=== PATIENT | female | born 1960 | race Caucasian/White ===

== ENCOUNTER → 2017-11-29 17:02 | Outpatient (CLI) | payer BC, SELFPAY ==
--- NOTE | 2017-11-29 17:11 | BI_ITS ---
MAMMOGRAPHY - BILATERAL SCREENING REASON FOR EXAM: Female, 57 years old. Routine annual screening examination. PERTINENT HISTORY: Remote right excisional breast biopsy. TECHNIQUE: Digital bilateral breast jordan (3D mammographic acquisition) in the CC and MLO projections. 2-D mediolateral oblique (MLO) and craniocaudad (CC) views of both breasts were obtained. CAD: Full Field Digital Mammography with Computer Added Detection was performed. COMPARISON: Comparison is made with prior study dated June 17, 2015 and May 22, 2014. FINDINGS: Breast Composition: There are scattered areas of fibroglandular density. There are no dominant masses or suspicious calcifications. No other significant abnormalities are identified. There has been no significant change since the prior study. BI/SCREENING MAMM (CAD), BILAT IMPRESSION: Stable bilateral screening mammogram. Yearly follow-up mammogram recommended. (A) ASSESSMENT CATEGORY: BIRADS Category 1: Negative. A letter regarding these results will be sent to the patient by the facility within 30 days. Approximately 10% of breast cancers are not detected by mammography. A normal mammogram should not delay biopsy of a clinically suspicious abnormality. [id number] Electronically Signed: Ad Castano MD at 9:06 EDT Tel [phone], Service support ,
== END ==
PROVIDERS: Family Provider Family Medicine; PCP Family Medicine; Visit Provider Family Medicine
DX: Z12.31 Encounter for screening mammogram for malignant neoplasm of breast (principal)
CPT/HCPCS: 77063; 77067

== ENCOUNTER → 2018-02-21 15:42 | Outpatient (CLI) | payer BC, SELFPAY ==
--- NOTE | 2018-02-21 15:44 | RAD_ITS ---
STUDY: X-RAY - RIGHT HAND REASON FOR EXAM: Osteoarthritis. TECHNIQUE: 3 view(s) of the hand. COMPARISON: None. FINDINGS: Normal radiocarpal articulation. Normal distal radioulnar joint. Normal visualized carpal bones. Normal carpal articulations There are small marginal osteophytes and joint space narrowing of the carpometacarpal articulation of the thumb. Normal second through fifth carpometacarpal joints. Normal metacarpi. Normal metacarpophalangeal joint of the thumb. Normal interphalangeal joint of the thumb. Normal proximal and distal phalanges of the thumb. Normal metacarpophalangeal joints of the second through fifth fingers. Normal proximal and distal interphalangeal joints of the second through fifth fingers. Normal phalanges of the second through fifth fingers. The soft tissue structures are unremarkable. RAD/Hand Min 3 Views IMPRESSION: Arthrosis of the first carpometacarpal joint. Electronically Signed: Erik Jason MD at 15:38 EDT Tel , Service support ,
== END ==
PROVIDERS: Family Provider Family Medicine; PCP Family Medicine; Visit Provider Orthopaedic Surgery
DX: M18.11 Unilateral primary osteoarthritis of first carpometacarpal joint, right hand (principal)
CPT/HCPCS: 73130

== ENCOUNTER → 2018-03-08 06:53 | Outpatient (CLI) | payer BC, SELFPAY ==
--- NOTE | 2018-03-08 12:38 | STRESSREP ---
Stress Test Report Pharmacologic myocardial perfusion stress test. 58-year-old lady with a history of chest pain. Medications: Lopressor hydrochlorothiazide aspirin atorvastatin. Stress protocol: Resting EKG demonstrates sinus bradycardia cardia with a rate of 60 bpm left bundle branch block is noted resting blood pressure is 138/82 mmHg. 0.4 mg of regadenoson was infused per usual protocol followed by rapid intravenous saline flush injection continuous EKG monitoring was performed the patient maintained sinus rhythm throughout the recording. The maximum heart rate attained was 89 bpm which was 55% of maximum predicted heart rate maximum workload attained was 1 metabolic equivalent. At rest there were no ST or T-wave changes noted suggest abnormal flow reserve at peak infusion no ST or T-wave changes were noted suggest abnormal flow reserve resting blood pressure is 138/82 with a final blood pressure 130/80 mmHg. Myocardial perfusion protocol. 11.1 mCi of technetium 99m sestamibi was injected at rest. 0.4 mg of regadenoson was infused per usual protocol peak infusion 32.7 mCi of technetium 99m sestamibi was injected stress images were obtained stress and rest images were reconstructed and compared in the short axis vertical long and horizontal long axis. Gated images were also obtained pre- Perfusion SPECT analysis: Review of the stress images demonstrate normal uptake of tracer noted in all areas of the myocardium the resting images similarly demonstrate normal uptake of tracer noted in all areas of the myocardium. No areas of reversibility are noted suggest ischemia and no previous infarct is noted. Gated SPECT analysis: The gated ejection fraction is 66%. Conclusion: Normal pharmacologic myocardial perfusion stress test. Preserved ejection fraction.
== END ==
PROVIDERS: Family Provider Family Medicine; PCP Family Medicine; Visit Provider Internal Medicine Cardiovascular Disease
DX: R07.9 Chest pain, unspecified (principal); E78.5 Hyperlipidemia, unspecified; I10 Essential (primary) hypertension; I44.7 Left bundle-branch block, unspecified
CPT/HCPCS: 78452; 93017; A9500; A4216; J2785

== ENCOUNTER → 2018-03-29 10:30 | Outpatient (CLI) | payer BC, SELFPAY ==
--- NOTE | 2018-03-29 10:33 | RAD_ITS ---
STUDY: X-RAY - SACRUM/COCCYX REASON FOR EXAM: Female, 58 years old. Pain TECHNIQUE: Three view(s) of the sacrum and coccyx were obtained. COMPARISON: None. FINDINGS: There is mild sclerosis along the sacroiliac joints. Normal visualized sacral ala and fused sacral bodies. Normal sacrococcygeal junction with a normal angulation. Normal coccygeal segments. There are numerous phleboliths in the lower pelvis bilaterally. RAD/Sacrum-Coccyx min 2 Views IMPRESSION: No acute abnormalities are seen in the sacrum or coccyx. There are mild degenerative changes in the sacroiliac joints. Electronically Signed: Deidra Mix MD at 20:20 EDT Tel Direct: [phone], Service support ,
== END ==
PROVIDERS: Family Provider Family Medicine; PCP Family Medicine; Visit Provider Family Medicine
DX: M53.3 Sacrococcygeal disorders, not elsewhere classified (principal)
CPT/HCPCS: 72220

== ENCOUNTER → 2018-05-24 09:37 | Outpatient (CLI) | payer BC, SELFPAY ==
[2018-05-24 10:59] LABS: ALB/GLOB Ratio 1.2 RATIO (0.9-2.4); AST(SGOT) 18 U/L (15-37); Alanine Aminotransfer ALT/SGPT 29 U/L (13-56); Alkaline Phosphatase 83 U/L (45-117); Anion Gap 8 (5-15); BUN 14 mg/dL (7-18); BUN/Creat Ratio 23.4 RATIO (10-20); CPK Total, Creatine Kinase 104 U/L (26-192); Calcium,Total 8.5 mg/dL (8.5-10.1); Chloride 107 mmol/L (98-107); EST Glomerular Filtration Rate 109 mL/min (>60); Est Glom Filt Rate - Afr Amer 132 mL/min (>60); Globulin 3.3 g/dL (2.2-4.2); Glucose 80 mg/dL (74-106); Magnesium 2.1 mg/dL (1.6-2.6); Protein, Total 7.3 g/dL (6.4-8.2); Sodium Level 144 mmol/L (136-145)
[2018-05-24 11:00] LABS: Ferritin 11 ng/mL (8-252); Iron 100 ug/dL (50-170); T4 Free Direct 0.99 ng/dL (0.76-1.46); Thyroid Stim Hormone (TSH) 1.86 uIU/mL (0.358-3.74); Vitamin B12 1119 pg/mL (211-911)
== END ==
PROVIDERS: Family Provider Family Medicine; PCP Family Medicine; Visit Provider Family Medicine
DX: R25.2 Cramp and spasm (principal); E03.8 Other specified hypothyroidism; E55.9 Vitamin D deficiency, unspecified; G25.81 Restless legs syndrome
CPT/HCPCS: 36415; 80053; 82306; 82550; 82607; 82728; 83540; 83735; 84439; 84443

== ENCOUNTER → 2018-06-15 12:03 | Outpatient (CLI) | payer BC, SELFPAY ==
[2018-06-15 14:18] LABS: Erythrocyte Sedimentation Rate 1 mm/hr (0-30)
[2018-06-15 14:35] LABS: CRP < 2.90 mg/L (0.0-3.0); Rheumatoid Factor < 10.0 IU/mL (<15)
[2018-06-16 16:23] LABS: ANTINUCLEAR ANTIBODIES DIRECT Negative (Negative)
== END ==
PROVIDERS: Family Provider Family Medicine; PCP Family Medicine; Referring Provider Family Medicine; Visit Provider Family Medicine
DX: M06.9 Rheumatoid arthritis, unspecified (principal); M25.50 Pain in unspecified joint
CPT/HCPCS: 36415; 85652; 86038; 86140; 86225; 86235; 86431

== ENCOUNTER → 2018-07-26 08:46 | Outpatient (CLI) | payer BC, SELFPAY ==
--- NOTE | 2018-07-26 08:52 | RAD_ITS ---
HISTORY: bilat knee pain, no injury COMPARISON: None FINDINGS: XR Knee Complete 4 Views or More: Left knee No fracture or acute disease. Degenerative arthritis with mild narrowing of the tibiofemoral medial compartment. The lateral compartment and patellofemoral joint space appear preserved. No bony erosions. Hypertrophic spurring of the anterior superior margin of the patella at quadriceps insertion. No joint effusion. RAD/Knee 4 or More Views IMPRESSION: 1. Mild degenerative changes, not unusual for age. 2. No acute disease. at 0024 Reported and signed by: Lei Mark MD Electronically Signed: Lei Mark, at 0:21 EST Tel , Service support ,
--- NOTE | 2018-07-26 08:52 | RAD_ITS ---
HISTORY: bilat knee pain, no injury COMPARISON: None FINDINGS: XR Knee Complete 4 Views or More: Right knee No fracture or acute disease. Degenerative arthritis with minor narrowing of the tibiofemoral medial compartment. The lateral compartment and patellofemoral joint space appear preserved. No bony erosions and no joint effusion. RAD/Knee 4 or More Views IMPRESSION: 1. Right knee minor degenerative change, not unusual for age. 2. No acute disease. at 0026 Reported and signed by: Lei Mark MD Electronically Signed: Lei Mark, at 0:24 EST Tel , Service support ,
[2018-07-26 10:32] LABS: AST(SGOT) 17 U/L (15-37); Alanine Aminotransfer ALT/SGPT 29 U/L (13-56); Alkaline Phosphatase 78 U/L (45-117); Bilirubin, Direct 0.11 mg/dL (0.00-0.30); Cholesterol 260 mg/dL (200); Globulin 3.3 g/dL (2.2-4.2); High Density Lipoprotein 48 mg/dL; Protein, Total 7.3 g/dL (6.4-8.2); Triglycerides 263 mg/dL; Very Low Density Lipoprotein 53 mg/dL (5-40)
--- OUTSIDE RECORDS SUMMARY | 2018-09-20 14:38 | XMS RPT_ITS ---
:1960 Author Organization OHIP Support Name Relationship Address Phone MADONNA ABARCA Unavailable [address] + [address] [place] [address] [facility] Unavailable [address] + [place] [address] BRENDA SALAZAR Unavailable [address] + [place], [place] [address] [address] + [address] [place] [address] [facility] Unavailable [address] + [place] [address] BRENDA SALAZAR Unavailable [address] + [place] [address] ABARCATORONN Unavailable [address] + [address] [place] [address] [facility] Unavailable [address] + [place] [address] BRENDA SALAZAR Unavailable [address] + [place], [place] [phone] [place] [address] MADONNA Unavailable [address] + [address] [place] [address] [facility] Unavailable [address] + [place] [phone] BRENDA SALAZAR Unavailable [address] + [place] [address] ABARCATORONN Unavailable [address] + [address] [place] [address] [facility] Unavailable [address] + [place] [address] BRENDA SALAZAR Un[address] + [place] [address] MADONNA ABARCA Unavailable Unavailable + TORO ABARCANN Unavailable Unavailable + MADONNA ABARCA Unavailable [address] + [address] [place] [address] [facility] Unavailable [address] + [place] [phone] BRENDA SALAZAR Unavailable [address] + [place] [address] [place] MADONNA Unavailable [address] + [address] [place] [address] [facility] Unavailable [address] + [place] [address] BRENDA SALAZAR Unavailable [address] + [place] [address] [place] MADONNA Unavailable [address] + [address] [place] [address] [facility] Unavailable [address] + [place] [address] BRENDA SALAZAR Unavailable [address] + [place] [address] [place] MADONNA Unavailable [address] + [address] [place] [address] [facility] Unavailable [address] + [place] [address] BRENDA SALAZAR Unavailable [address] + [place] [address] [place] MADONNA Unavailable [address] + [address] [place] [address] [facility] Unavailable [address] + [place] [address] BRENDA SALAZAR Unavailable [address] + [place] [address] [place]RO[place]ADONNA Unavailable [address] + [address] [place] [address] [facility] Unavailable [address] + [place] [phone] BRENDA SALAZAR Unavailable [address] + [place] [address] MADONNA ABARCA Unavailable Unavailable + TORO ABARCANN Unavailable [address] + [address] [place] [address] [facility] Unavailable [address] + [place] [address] GIUSEPPE SALAZARSSE Unavailable [address] + [place] [address] MADONNA ABARCA Unavailable [address] + [address] [place] [address] [facility] Unavailable [address] + [place] [phone] JASPER SALAZARE Unavailable [address] + [place] [address] MADONNA ABARCA Unavailable [address] + [place] [address] NOT GIVEN Unavailable [address] + [place] [address] MADONNA ABARCA Unavailable Unavailable + MADONNA ABARCA Unavailable [address] + [address] [place] [address] [facility] Unavailable [address] + [place] [address] BRENDA SALAZAR Unavailable [address] + [place] [address] Care Team Providers Name Role Phone Sola Rodriguez Attending Unavailable Marcelo Justice Referring Unavailable Vinh, Marcelo Primary Care Unavailable Marcelo Justice Attending Unavailable VinhMarcelo Referring Unavailable Vinh, Marcelo Primary Care Unavailable Sola Rodriguez Attending Unavailable Marcelo Justice Referring Unavailable Vinh, Marcelo Primary Care Unavailable Rox Ratliff Attending Unavailable VinhMarcelo Referring Unavailable Vinh, Marcelo Primary Care Unavailable Sola Rodriguez Attending Unavailable Marcelo Justice Referring Unavailable Vinh, Marcelo Primary Care Unavailable Sola Rodriguez Attending Unavailable Sola Rdoriguez Referring Unavailable Vinh, Marcelo Primary Care Unavailable Maciel Rowell Attending Unavailable Maciel Rowell Referring Unavailable Vinh, Marcelo Primary Care Unavailable Marcelo Justice Attending Unavailable Vinh, Marcelo Referring Unavailable Vinh, Marcelo Primary Care Unavailable Maciel Rowell Attending Unavailable Vinh, Marcelo Attending Unavailable Vinh, Marcelo Primary Care Unavailable Vinh, Marcelo Attending Unavailable Vinh, Marcelo Primary Care Unavailable Vinh, Marcelo Attending Unavailable Vinh, Marcelo Primary Care Unavailable Vinh, Marcelo Referring Unavailable Vinh, Marcelo Attending Unavailable Vinh, Marcelo Primary Care Unavailable Rox Ratliff Referring Unavailable Rox Ratliff Consulting Unavailable Sola Rodriguez Attending Unavailable Vinh, Marcelo Referring Unavailable Stasatya, Dr. Mannie Romero Admitting Unavailable Stasatya, Dr. Mannie Romero Attending Unavailable STASATYA, MANNIE ALANA Attending Unavailable VINH, MARCELO BRET Primary Care Unavailable STADNMICHAEL, MANNIE ALANA Attending Unavailable VINH, MARCELO BRET Primary Care Unavailable STADNMICHAEL, MANNIE ALANA Attending Unavailable VINH, MARCELO BRET Primary Care Unavailable STASATYA, MANNIE ALANA Attending Unavailable VINH, MARCELO BRET Primary Care Unavailable Rox Ratliff Admitting Unavailable Rox Ratliff Attending Unavailable Dionte Christensen Primary Care Unavailable PROBLEMS PROBLEMS DATE TYPE CONDITION / CODE ATTENDING STATUS SOURCE 08/04/2018 Unknown 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, 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 [facility] osteoarthritis of Hospital first Repository carpometacarpal joint, right hand / M18.11(ICD-10) 07/26/2018 Unknown M25.569 - Pain in Marcelo Justice Active [place] unspecified knee / Community M25.569(ICD-10) Hospital Repository 06/15/2018 Unknown M06.9 - Rheumatoid Marcelo Justice Active [facility] arthritis, Community unspecified / Hospital M06.9(ICD-10) Repository 06/15/2018 Unknown M25.50 - Pain in Marcelo Justice Active [place] unspecified joint / Community M25.50(ICD-10) Hospital Repository 05/25/2018 Unknown Z00.00 - Encounter Marcelo Justice Active [place] for general adult [facility] medical examination Hospital without abnormal Repository findings / Z00.00(ICD-10) 03/29/2018 Unknown M53.3 - VinhMarcelo anglin Active [facility] disorders, not Hospital elsewhere classified Repository / M53.3(ICD-10) 04/06/2018 Unknown R07.9 - Chest pain, Sorin, Maciel Active [facility] unspecified / Community R07.9(ICD-10) Hospital Repository 01/24/2018 Unknown M18.9 - Chicorelli, Active [facility] Osteoarthritis of [facility] carpometacarpal Repository joint, unspecified / M18.9(ICD-10) 10/19/2017 Admitting Rheumatoid STADNICK, Active [facility] diagnosis arthritis, MANNIE ALANA Three unspecified / Repository M06.9(ICD-10) 08/25/2017 Unknown M19.049 - Primary Chicorelli, Active [place] osteoarthritis, [facility] unspecified hand / Hospital M19.049(ICD-10) Repository PROCEDURES PROCEDURES No Procedure Records FoundRESULTS RESULTS ORTHOPEDIC VISIT Observed: 08/10/2018 Status: F Source: LOLA REPORT 3:40 PM [facility] REPOSITORY [facility] [address] [place], [place] [id number] OFFICE VISIT Date of Service: 08/04/18 MR#: [id number] Acct: [id number] Name: REMI PRIETO WILMER Rep #: [id number] : 1960 Provider: Sola Rodriguez DO Age/Sex: 58/F Location: [facility] Status: Signed Intake Intake Visit Reasons: right thumb Allergies topiramate [From Topamax] Adverse Reaction (Verified 02/21/18 15:31) Nausea Medications ALPRAZolam [Xanax] 0.5 mg PO QHS 06/24/15 [History Confirmed 02/08/18] Metoprol/Hydrochlorothiazide [Lopressor Hct 50-25 Tablet] 1 tab PO DAILY 06/24/15 [History Confirmed 02/08/18] Butalbital/Aspirin/Caffeine [Lsqufltwfk-AKW-Jjokxgvb Cap] 1 ea PO Q6H PRN 12/15/16 [History Confirmed 02/08/18] cholecalciferol (vitamin D3) 5,000 unit capsule 5,000 unit PO ONCE 08/25/17 [History Confirmed 02/08/18] mecobalamin (vitamin B12) 1,000 mcg disintegrating tablet,sublingual 1,000 mcg SUBLINGUAL QDAY 08/25/17 [History Confirmed 02/08/18] aspirin 81 mg tablet,delayed release 81 mg PO QDAY 02/08/18 [History Confirmed 02/08/18] hydroxychloroquine 200 mg tablet 200 mg PO BID tab 02/08/18 [History Confirmed 02/08/18] rizatriptan 10 mg tablet PO 30 Days #9 02/08/18 [History Confirmed 02/08/18] meloxicam 15 mg tablet 15 mg PO QDAY #30 tab 02/21/18 [Rx Confirmed 02/21/18] pravastatin 40 mg tablet 40 mg PO .COMPLEX #30 tab 07/31/18 [Rx] PFSH Medical History HLD (hyperlipidemia) (Chronic) Left bundle-branch block (Chronic) Essential (primary) hypertension (Chronic) Anxiety (Acute) Benign meningioma of brain (Acute) Fatty liver (Acute) Thyroid nodule (Acute) Migraines (Chronic) Rheumatoid arthritis (Chronic) H/O: hysterectomy (Inactive) Surgical History H/O breast biopsy (Inactive) H/O left cataract extraction (Inactive) History of arthroscopy of left shoulder (Inactive) History of incision and drainage (Inactive) S/P left rotator cuff repair (Inactive) S/P partial thyroidectomy (Inactive) S/P tonsillectomy (Inactive) right ankle (Inactive) right foot plate (Inactive) Family History Father Lung cancer Sister Ovarian cancer Other CVA (cerebral vascular accident) Heart disease Hypertension Myocardial infarction Sudden cardiac Thyroid disorder Social History Smoking Status: Never smoker HPI right thumb: Details: REMI PRIETO is a 58 year old F here today for right thumb and cmc pain. She states that a couple days ago she had swelling and warmth over the cmc joint but she took some prednisone and increased her RA meds and that brought the flare down. Today she has mild swelling but better movement. Denies numbness, tingling or other associated symptoms. Ortho Exam Right Wrist/Hand Skin/Wound: Yes CDI Contralateral Normal: Yes A1 kusum trigger: No Motor: EPL: 5, FDP-2: 5, 1st Dorsal Interosseous: 5, APB: 5 Sensation: Radial: I, Ulnar: I, Median: I WRIST: cmc grind Office Procedures Ortho Injections Injections Yes CMC Right Details: Obtained consent for injection. Under sterile conditions, injected the patients right CMC with a 1.5cc cocktail of 1cc bupivacaine and 0.5cc kenalog. The patient tolerated the injection well without any noted complication. Patient should call our office if redness develops, pain worsens or if they have any concerns. Office Meds Kenalog Performing Provider: Sola Rodriguez DO Administered by: Sola Rodriguez DO on 08/04/18 08:35 Dose Route Admin Location Lot Number Expiration DateNDC Soyfreeze Operator 20 mg Intra-Articularright cmc [id number] 07/29/19 7071-5886-48 [facility] Assessment AND Plan 1. Osteoarthritis of carpometacarpal joint of right thumb, unspecified osteoarthritis type M18.11 Plan Can continue conservative care as long as the injection continue to give relief. Reviewed the risks and benefits of steroid injections and patient elects to proceed today. Follow up in 4 months or sooner if pain, swelling, numbness or associated symptoms, or concerns develop. All questions answered. Patient in agreement of plan. Orders Orders: Medications Discontinued: Kenalog (triamcinolone acetonide) Eaavizzv34 mg (0.5 mL) Intra-Articular ONCE 0.5 mL 0R nued Reason: Office Medication has been DocuF NS mented as given Coding Level of Care Code Off vis,est,level 3 Diagnoses Osteoarthritis of carpometacarpal joint of right thumb, unspecified osteoarthritis type M18.11 Osteoarthritis type: unspecified Additional Codes transcribing operator [facility] ([id number]) 08/10/18 1540 <Electronically signed by Sola Rodriguez DO> Date Sola Rodriguez DO Cosigner Signature: Date (if applicable) CC: LIVER PROFILE Collected: 07/26/2018 Status: F Source: LOLA 8:54 AM [facility] REPOSITORY Order Comment: Order Date: 06/02/17 Order Info: [id number] - *Lipid Profile CC PCP Comments: 12 hours fasting, may have water. TYPE CODE TESTS RESULT OUT OF RANGE REFERENCE UNITS LAB L501.1500 6.4-8.2 g/dL Normal T PROT 7.3 LAB L501.1800 3.2-5.0 g/dL Normal ALB 4.0 LAB L501.1950 2.2-4.2 g/dL Normal GLOB 3.3 LAB L501.4100 15-37 U/L Normal AST 17 LAB L501.4305 45-117 U/L Normal ALK P 78 LAB L501.4405 13-56 U/L Normal ALT 29 LAB L501.4600 0.20-1.00 mg/dL Normal T BILI 0.40 LAB L501.4700 0.00-0.30 mg/dL Normal D BILI 0.11 Performed By: #### L500.3400, L500.4100 #### [facility] [address] [place], [place], [id number] LIPID PROFILE Collected: 07/26/2018 Status: F Source: COMFREY 8:54 AM [facility] REPOSITORY Order Comment: Order Date: 06/02/17 Order Info: [id number] - *Lipid Profile CC PCP Comments: 12 hours fasting, may have water. TYPE CODE TESTS RESULT OUT OF RANGE REFERENCE UNITS LAB L501.4900 200 mg/dL High CHOL 260 Result Comment: <200 mg/dL Desirable 200-240 mg/dL Borderline >240 mg/dL High Risk LAB L501.5000 mg/dL High TRIG 263 Result Comment: The drugs N-Acetylcysteine and Metamizole may falsely depress this assay. Serum Triglycerides Reference Interval Normal <150 mg/dL Borderline high 150 - 199 mg/dL High 200 - 499 mg/dL Very High > or = 500 mg/dL LAB L501.6400 mg/dL Normal HDL 48 Result Comment: The drugs N-Acetylcysteine and Metamizole may falsely depress this assay. Reference Range HDL <40 mg/dL Low HDL Cholesterol HDL >or= 60 mg/dL High HDL Cholesterol LAB L501.6500 0-130 mg/dL High LDL 159 LAB L501.6600 5-40 mg/dL High VLDL 53 Performed By: #### L500.3400, L500.4100 #### [facility] [address] [place], [place], [id number] KNEE 4 OR MORE Observed: 07/26/2018 Status: F Source: LOLA VIEWS 8:52 AM [facility] REPOSITORY [facility] Imaging Services [address] [place] [address] Knee 4 or More Views MR#: [id number] Acct: [id number] Name: REMI PRIETO WILMER Rep #: [id number] : 1960 F 58 From: Lei Mark MD PCP: Marcelo Justice DO Status: REG CLI Study: Knee 4 or More Views Date of Exam: 07/26/18 Exam# [id number] Ordering Dr: Marcelo Justice DO HISTORY: bilat knee pain, no injury COMPARISON: None FINDINGS: XR Knee Complete 4 Views or More: Left knee No fracture or acute disease. Degenerative arthritis with mild narrowing of the tibiofemoral medial compartment. The lateral compartment and patellofemoral joint space appear preserved. No bony erosions. Hypertrophic spurring of the anterior superior margin of the patella at quadriceps insertion. No joint effusion. RAD/Knee 4 or More Views IMPRESSION: 1. Mild degenerative changes, not unusual for age. 2. No acute disease. at 0024 Reported and signed by: Lei Mark MD Electronically Signed: Lei Mark, at 0:21 EST Tel , Service support , CC: Marcelo Justice DO Staple Processing Machine Operator: Signed KNEE 4 OR MORE Observed: 07/26/2018 Status: F Source: LOLA VIEWS 8:52 AM [facility] REPOSITORY [facility] Imaging Services [address] [place] [address] Knee 4 or More Views MR#: [id number] Acct: [id number] Name: REMI PRIETO WILMER Rep #: [id number] : 1960 F 58 From: Lei Mark MD PCP: Marcelo Justice DO Status: REG CLI Study: Knee 4 or More Views Date of Exam: 07/26/18 Exam# [id number] Ordering Dr: Marcelo Justice DO HISTORY: bilat knee pain, no injury COMPARISON: None FINDINGS: XR Knee Complete 4 Views or More: Right knee No fracture or acute disease. Degenerative arthritis with minor narrowing of the tibiofemoral medial compartment. The lateral compartment and patellofemoral joint space appear preserved. No bony erosions and no joint effusion. RAD/Knee 4 or More Views IMPRESSION: 1. Right knee minor degenerative change, not unusual for age. 2. No acute disease. at 0026 Reported and signed by: Lei Mark MD Electronically Signed: Lei Mark, at 0:24 EST Tel , Service support , CC: Marcelo Justice DO Staple Processing Machine Operator: Signed ERYTHROCYTE SED RATE Collected: 06/15/2018 Status: F Source: COMFREY 12:12 PM [facility] REPOSITORY TYPE CODE TESTS RESULT OUT OF RANGE REFERENCE UNITS LAB L102.0000 0-30 mm/hr Normal SED RATE 1 Performed By: #### L101.9900 #### [facility] [address] [facility]. [place], [place], [id number] CRP Collected: 06/15/2018 Status: F Source: COMFREY 12:12 PM [facility] REPOSITORY TYPE CODE TESTS RESULT OUT OF RANGE REFERENCE UNITS LAB L501.6710 0.0-3.0 mg/L Normal < 2.90 C-REACTIVE PROT Result Comment: C-Reactive Protein (CRP) provides useful information for the diagnosis, therapy and monitoring of inflammatory processes and associated diseases. For the evaluation of Relative Risk for Cardiovascular Disease, a High Sensitivity CRP (HSCRP) should be ordered. Performed By: #### L501.6710, L505.7010 #### [facility] [address] [facility]. [place], [place], [address] RHEUMATOID FACTOR Collected: 06/15/2018 Status: F Source: COMFREY 12:12 PM [facility] REPOSITORY TYPE CODE TESTS RESULT OUT OF RANGE REFERENCE UNITS LAB L505.7010 <15 IU/mL Normal RHEUMATOID FAC < 10.0 Performed By: #### L501.6710, L505.7010 #### [facility] [address] [place], [place], [address] ADALI W/ REFLEX MULT Collected: 06/15/2018 Status: F Source: LOLA CONFIRM 12:12 PM [facility] REPOSITORY TYPE CODE TESTS RESULT OUT OF RANGE REFERENCE UNITS LAB L3100.5475 Negative Normal Negative ADALI-DIRECT Result Comment: Performed at: - [facility] [id number] Recycling Director: Carmelo Fortune PhD, Phone: [phone] Performed By: #### L3100.5450 #### [facility] (refer to report for specific site) refer to report for address and phone number COMPREHENSIVE METABOLIC Collected: 05/24/2018 Status: F Source: LOLA PROFIL 9:39 AM [facility] REPOSITORY TYPE CODE TESTS RESULT OUT OF RANGE REFERENCE UNITS LAB L501.0100 74-106 mg/dL Normal GLU 80 Result Comment: Please note revised GLUCOSE reference range effective 2017. LAB L501.1000 7-18 mg/dL Normal BUN 14 LAB L501.1100 0.55-1.02 mg/dL Normal CREAT,SERUM 0.60 Result Comment: The validity of the calculated GFR AND GFRAA in patients over 70 years has not been determined. Clinical correlation is essential. LAB L501.1110 >60 mL/min Normal EST GFR 109 Result Comment: Non- GFR Calc LAB L501.1115 >60 mL/min Normal EST GFR - AA 132 Result Comment: GFR Calc LAB L501.1300 10-20 RATIO High BUN/CRE 23.4 LAB L501.1500 6.4-8.2 g/dL T Normal PROT 7.3 LAB L501.1800 3.2-5.0 g/dL Normal ALB 4.0 LAB L501.1950 2.2-4.2 g/dL Normal GLOB 3.3 LAB L501.2000 0.9-2.4 RATIO Normal A/G 1.2 LAB L501.2200 8.5-10.1 mg/dL CA Normal 8.5 LAB L501.4100 15-37 U/L Normal AST 18 LAB L501.4305 45-117 U/L Normal ALK P 83 LAB L501.4405 13-56 U/L Normal ALT 29 LAB L501.4600 0.20-1.00 mg/dL T Normal BILI 0.40 LAB L501.5300 136-145 mmol/L NA Normal 144 LAB L501.5600 3.5-5.1 mmol/L K Normal 4.0 LAB L501.5900 98-107 mmol/L CL Normal 107 LAB L501.6100 21.0-32.0 mmol/L Normal CO2 29.0 LAB L501.6200 5-15 Normal GAP 8 Performed By: #### L500.4050, L501.3620, L501.5200, L501.9520, L503.6150, L503.6550, L506.0400 #### [facility] [address] [facility]. [place], [place], [address] (171) CPK TOTAL, CREATINE Collected: 05/24/2018 Status: F Source: LOLA KINASE 9:39 AM [facility] REPOSITORY TYPE CODE TESTS RESULT OUT OF RANGE REFERENCE UNITS LAB L501.3620 26-192 U/L Normal CPK TOTAL 104 Performed By: #### L500.4050, L501.3620, L501.5200, L501.9520, L503.6150, L503.6550, L506.0400 #### [facility] [address] [facility]. [place], [place], [address] MAGNESIUM Collected: 05/24/2018 Status: F Source: LOLA 9:39 AM [facility] REPOSITORY TYPE CODE TESTS RESULT OUT OF RANGE REFERENCE UNITS LAB L501.5200 1.6-2.6 mg/dL Normal MG 2.1 Performed By: #### L500.4050, L501.3620, L501.5200, L501.9520, L503.6150, L503.6550, L506.0400 #### [facility] [address] [facility]. [place], [place], [address] THYROID STIM HORMONE Collected: 05/24/2018 Status: F Source: LOLA (TSH) 9:39 AM [facility] REPOSITORY TYPE CODE TESTS RESULT OUT OF RANGE REFERENCE UNITS LAB L501.9520 0.358-3.74 uIU/mL Normal TSH 1.86 Performed By: #### L500.4050, L501.3620, L501.5200, L501.9520, L503.6150, L503.6550, L506.0400 #### [facility] [address] [place], [address] IRON Collected: 05/24/2018 Status: F Source: COMFREY 9:39 AM [facility] REPOSITORY TYPE CODE TESTS RESULT OUT OF RANGE REFERENCE UNITS LAB L503.6150 50-170 ug/dL Normal IRON 100 Performed By: #### L500.4050, L501.3620, L501.5200, L501.9520, L503.6150, L503.6550, L506.0400 #### [facility] [address] [facility] [place], [place], [id number] FERRITIN Collected: 05/24/2018 Status: F Source: COMFREY 9:39 AM [facility] REPOSITORY TYPE CODE TESTS RESULT OUT OF RANGE REFERENCE UNITS LAB L503.6550 8-252 ng/mL Normal FERRITIN 11 Performed By: #### L500.4050, L501.3620, L501.5200, L501.9520, L503.6150, L503.6550, L506.0400 #### [facility] [address] [facility] [place], [address] T4 FREE DIRECT Collected: 05/24/2018 Status: F Source: COMFREY 9:39 AM [facility] REPOSITORY TYPE CODE TESTS RESULT OUT OF RANGE REFERENCE UNITS LAB L506.0400 0.76-1.46 ng/dL Normal T4 FREE 0.99 DIRECT Performed By: #### L500.4050, L501.3620, L501.5200, L501.9520, L503.6150, L503.6550, L506.0400 #### [facility] [address] [facility]. [place], [place], [id number] VITAMIN B12 Collected: 05/24/2018 Status: F Source: COMFREY 9:39 AM [facility] REPOSITORY TYPE CODE TESTS RESULT OUT OF REFERENCE UNITS RANGE LAB L503.0105 211-911 pg/mL High Vitamin B12 1119 Performed By: #### L503.0105, L506.1000 #### [facility] [address] [place], [address] VITAMIN D,25 HYDROXY Collected: 05/24/2018 Status: F Source: COMFREY 9:39 AM [facility] REPOSITORY TYPE CODE TESTS RESULT OUT OF REFERENCE UNITS RANGE LAB L506.1000 29.95-100.01 ng/mL Low Vitamin D 17.0 25-OH Result Comment: Vitamin D 25(OH) Status Range Deficiency <20 ng/mL (50nmol/L) Insuffciency 20 - 30 ng/mL (50 - 75 nmol/L) Sufficiency 30 - 100 ng/mL (75 - 250 nmol/L) Toxicity >100 ng/mL (>250 nmol/L) Performed By: #### L503.0105, L506.1000 #### [facility] [address] [place], [address] SACRUM-COCCYX MIN 2 VIEWS Observed: 03/29/2018 Status: F Source: COMFREY 10:33 AM [facility] REPOSITORY [facility] Imaging Services [address] [place] [address] Sacrum-Coccyx min 2 Views MR#: [id number] Acct: [id number] Name: REMI PRIETO Rep #: [id number] : 1960 F 58 From: Deidra Mix MD PCP: Marcelo Justice DO Status: REG CLI Study: Sacrum-Coccyx min 2 Views Date of Exam: 03/29/18 Exam# [id number] Ordering Dr: Marcelo Justice DO STUDY: X-RAY - SACRUM/COCCYX REASON FOR EXAM: Female, 58 years old. Pain TECHNIQUE: Three view(s) of the sacrum and coccyx were obtained. COMPARISON: None. FINDINGS: There is mild sclerosis along the sacroiliac joints. Normal visualized sacral ala and fused sacral bodies. Normal sacrococcygeal junction with a normal angulation. Normal coccygeal segments. There are numerous phleboliths in the lower pelvis bilaterally. RAD/Sacrum-Coccyx min 2 Views IMPRESSION: No acute abnormalities are seen in the sacrum or coccyx. There are mild degenerative changes in the sacroiliac joints. Electronically Signed: Diedra Mix MD at 20:20 EDT Tel Direct: [phone], Service support , CC: Marcelo Justice DO Staple Processing Machine Operator: Signed STRESS REPORT Observed: 03/08/2018 Status: F Source: [place] 12:40 PM [facility] REPOSITORY [facility] Cardiovascular Services [address] [place] [id number] MR#: [id number] Acct: [id number] Name: REMI PRIETO Rep #: [id number] : 1960 58 From: Maciel Rowell MD Primary Care: Marcelo Justice DO Status: REG CLI Ordering Dr: Sex: F C Stress Test Report Pharmacologic myocardial perfusion stress test. 58-year-old lady with a history of chest pain. Medications: Lopressor hydrochlorothiazide aspirin atorvastatin. Stress protocol: Resting EKG demonstrates sinus bradycardia cardia with a rate of 60 bpm left bundle branch block is noted resting blood pressure is 138/82 mmHg. 0.4 mg of regadenoson was infused per usual protocol followed by rapid intravenous saline flush injection continuous EKG monitoring was performed the patient maintained sinus rhythm throughout the recording. The maximum heart rate attained was 89 bpm which was 55% of maximum predicted heart rate maximum workload attained was 1 metabolic equivalent. At rest there were no ST or T-wave changes noted suggest abnormal flow reserve at peak infusion no ST or T-wave changes were noted suggest abnormal flow reserve resting blood pressure is 138/82 with a final blood pressure 130/80 mmHg. Myocardial perfusion protocol. 11.1 mCi of technetium 99m sestamibi was injected at rest. 0.4 mg of regadenoson was infused per usual protocol peak infusion 32.7 mCi of technetium 99m sestamibi was injected stress images were obtained stress and rest images were reconstructed and compared in the short axis vertical long and horizontal long axis. Gated images were also obtained pre- Perfusion SPECT analysis: Review of the stress images demonstrate normal uptake of tracer noted in all areas of the myocardium the resting images similarly demonstrate normal uptake of tracer noted in all areas of the myocardium. No areas of reversibility are noted suggest ischemia and no previous infarct is noted. Gated SPECT analysis: The gated ejection fraction is 66%. Conclusion: Normal pharmacologic myocardial perfusion stress test. Preserved ejection fraction. 03/08/18 1240 <Electronically signed by Maciel Rowell MD> Date Maciel Rowell MD CC: Maciel Rowell MD; Marcelo MenjivarVinh DO Date Dictated: 03/08/18 1238 Date Transcribed: 03/08/18 1238 Staple Processing Machine Operator: CO Signed ORTHOPEDIC VISIT Observed: 02/23/2018 Status: F Source: [place] REPORT 10:11 AM [facility] Orthopaedics AND Sports Medicine [address] [place] [address] OFFICE VISIT Date of Service: 02/21/18 MR#: [id number] Acct: [id number] Name: REMI PRIETO Rep #: [id number] : 1960 Provider: Sola Rodriguez DO Age/Sex: 58/F Location: [facility] [place] [place] Status: Signed Intake Intake Visit Reasons: RIGHT WRIST Is patient in pain?: Yes Pain scale (1-10): 4 Allergies topiramate [From Topamax] Adverse Reaction (Verified 02/21/18 15:31) Nausea Medications ALPRAZolam [Xanax] 0.5 mg PO QHS 06/24/15 [History Confirmed 02/08/18] Metoprol/Hydrochlorothiazide [Lopressor Hct 50-25 Tablet] 1 tab PO DAILY 06/24/15 [History Confirmed 02/08/18] Butalbital/Aspirin/Caffeine [Spncpqtrvy-CTY-Rjgtrzsb Cap] 1 ea PO Q6H PRN 12/15/16 [History Confirmed 02/08/18] atorvastatin 80 mg tablet 80 mg PO QDAY 08/25/17 [History Confirmed 02/08/18] cholecalciferol (vitamin D3) 5,000 unit capsule 5,000 unit PO ONCE 08/25/17 [History Confirmed 02/08/18] mecobalamin (vitamin B12) 1,000 mcg disintegrating tablet,sublingual 1,000 mcg SUBLINGUAL QDAY 08/25/17 [History Confirmed 02/08/18] aspirin 81 mg tablet,delayed release 81 mg PO QDAY 02/08/18 [History Confirmed 02/08/18] hydroxychloroquine 200 mg tablet 200 mg PO BID tab 02/08/18 [History Confirmed 02/08/18] rizatriptan 10 mg tablet PO 30 Days #9 02/08/18 [History Confirmed 02/08/18] meloxicam 15 mg tablet 15 mg PO QDAY #30 tab 02/21/18 [Rx Confirmed 02/21/18] PFSH Medical History HLD (hyperlipidemia) (Chronic) Left bundle-branch block (Chronic) Essential (primary) hypertension (Chronic) Anxiety (Acute) Benign meningioma of brain (Acute) Fatty liver (Acute) Thyroid nodule (Acute) Migraines (Chronic) Rheumatoid arthritis (Chronic) Surgical History H/O breast biopsy (Inactive) H/O left cataract extraction (Inactive) H/O: hysterectomy (Inactive) History of arthroscopy of left shoulder (Inactive) History of incision and drainage (Inactive) S/P left rotator cuff repair (Inactive) S/P partial thyroidectomy (Inactive) S/P tonsillectomy (Inactive) right ankle (Inactive) right foot plate (Inactive) Family History Father Lung cancer Sister Ovarian cancer Other CVA (cerebral vascular accident) Heart disease Hypertension Myocardial infarction Sudden cardiac Thyroid disorder Social History Smoking Status: Never smoker HPI RIGHT WRIST: Details: REMI PRIETO is a 58 year old F here today for continued right wrist pain. She complains of pain over the base of her thumb. At times her pain shoots into her wrist. She had an injection on 01/24/18 which was not helpful. She had no pain relief with the injection. She has an OTC brace which she cant wear when she is working. Patients pain progresses throughout the day. She complains of grinding and popping with thumb range of motion. Denies numbness, tingling or other associated symptoms. She is taking mobic for pain. ROS Const Reports system reviewed and no additional complaints, except as docu Eyes Reports system reviewed and no additional complaints, except as docu ENT Reports system reviewed and no additional complaints, except as docu Card Reports system reviewed and no additional complaints, except as docu Resp Reports system reviewed and no additional complaints, except as docu GI Reports system reviewed and no additional complaints, except as docu Reports system reviewed and no additional complaints, except as docu Musc Reports joint pain, Reports stiffness Skin/Breast Reports system reviewed and no additional complaints, except as docu Neuro Yes system reviewed and no additional complaints, except as docu Psych Reports system reviewed and no additional complaints, except as docu Endo Reports system reviewed and no additional complaints, except as docu Ortho Exam Right Wrist/Hand Skin/Wound: Yes CDI Contralateral Normal: Yes A1 kusum trigger: No Right Wrist: Yes ROM-Extension 0-60, ROM-Flexion 0-80, ROM- Pronation 0-80 and ROM-Supination 0-90 Motor: EPL: 5, FDP-2: 5, 1st Dorsal Interosseous: 5, APB: 5 Sensation: Radial: I, Ulnar: I, Median: I WRIST: cmc grind Office Procedures Ortho Injections Injections Yes CMC Right Details: Obtained consent for injection. Under sterile conditions, injected the patients right CMC with a 1.5cc cocktail of 1cc bupivacaine and 0.5cc kenalog. The patient tolerated the injection well without any noted complication. Patient should call our office if redness develops, pain worsens or if they have any concerns. Office Meds Kenalog Performing Provider: Sola Rodriguez DO Administered by: Sola Rodriguez DO on 02/21/18 15:50 Dose Route Admin Location Lot Number Expiration DateNDC Soyfreeze Operator 0.5 mg Intra-Articularright cmc [id number] 12/27/18 8961-7626-50 Half Off [employer]ot[employer] TRADE TO REBATE Assessment AND Plan 1. Primary osteoarthritis of first carpometacarpal joint of right hand M18.11 Plan Reviewed her ongoing pain and no relief, we will injection one more time before she needs to consider CMC surgery. Follow up if the injection fails or sooner if pain, swelling, numbness or associated symptoms, or concerns develop. All questions answered. Patient in agreement of plan. Orders Orders: Medications Discontinued: Kenalog (triamcinolone acetonide) Di0.5 mg (0.05 mL) Intra- Articular ONCE N Lokesh Patel scontinued Reason: Office Medication hS as been Documented as given Coding Level of Care Code Off vis,est,level 3 Diagnoses Primary osteoarthritis of first carpometacarpal joint of right hand M18.11 Osteoarthritis type: primary Additional Codes transcribing operator head.[facility] ([id number]) 02/23/18 1011 <Electronically signed by Sola Rodriguez DO> Date Sola Rodriguez DO Cosigner Signature: Date (if applicable) CC: HAND MIN 3 VIEWS Observed: 02/21/2018 Status: F Source: [place] 3:44 PM [facility] REPOSITORY [facility] Imaging Services [address] [place] [id number] Hand Min 3 Views MR#: [id number] Acct: [id number] Name: REMI PRIETO Rep #: [id number] : 1960 F 58 From: Erik Jason MD PCP: Marcelo Justice DO Status: REG CLI Study: Hand Min 3 Views Date of Exam: 02/21/18 Exam# [id number] Ordering Dr: Sola Rodriguez DO STUDY: X-RAY - RIGHT HAND REASON FOR EXAM: Osteoarthritis. TECHNIQUE: 3 view(s) of the hand. COMPARISON: None. FINDINGS: Normal radiocarpal articulation. Normal distal radioulnar joint. Normal visualized carpal bones. Normal carpal articulations There are small marginal osteophytes and joint space narrowing of the carpometacarpal articulation of the thumb. Normal second through fifth carpometacarpal joints. Normal metacarpi. Normal metacarpophalangeal joint of the thumb. Normal interphalangeal joint of the thumb. Normal proximal and distal phalanges of the thumb. Normal metacarpophalangeal joints of the second through fifth fingers. Normal proximal and distal interphalangeal joints of the second through fifth fingers. Normal phalanges of the second through fifth fingers. The soft tissue structures are unremarkable. RAD/Hand Min 3 Views IMPRESSION: Arthrosis of the first carpometacarpal joint. Electronically Signed: Erik Jason MD at 15:38 EDT Tel , Service support , CC: Sola Rodriguez DO; Marcelo Justice DO Staple Processing Machine Operator: Signed HEP PENDING SALE TO [facility] PANEL Collected: 02/14/2018 Status: F Source: [facility] 7:43 AM [facility] REPOSITORY TYPE CODE TESTS RESULT OUT OF RANGE REFERENCE UNITS LAB 75074033(L 10-40 Int._Unit/L OINC) Normal ALT 19 LAB [id number](L 10-42 Int._Unit/L OINC) Normal AST 21 LAB [id number](L 3.2-5.0 G/DL OINC) Normal Albumin Lvl 4.1 LAB 10019313(L 2.0-4.0 G/DL OINC) Normal Globulin 2.8 LAB [id number](L 1.1-1.9 ratio OINC) Normal A/G Ratio 1.5 LAB [id number](L 42-121 Int._Unit/L OINC) Normal Alk Phos 63 LAB [id number](L .00-.20 mg/dL OINC) Normal Bili Direct <.10 LAB [id number](L OINC) Normal Bili Indirect >0.5 Result Comment: No established ranges available for the Indirect Biliruben. LAB [id number](LOINC) 0.2-1.0 mg/dL Normal Bili Total 0.6 LAB [id number](LOINC) 6.4-8.3 G/DL Normal Total Protein 6.9 Performed By: #### [id number] #### [facility] [address] [place] [address] LIPID PROFILE Collected: 02/14/2018 Status: F Source: [place] 7:43 AM [facility] REPOSITORY TYPE CODE TESTS RESULT OUT OF RANGE REFERENCE UNITS LAB [id number](LO 50-200 mg/dL INC) High Chol 252 Result Comment: TOTAL CHOLEESTEROL: <200 NORMAL 200 - 239 BORDERLINE HIGH >240 HIGH LAB [id number](LOINC) >=41 mg/dL Normal HDL 47 LAB 38728755(LOINC) 0-130 mg/dL High LDL 171 Result Comment: <100 OPTIMAL 100-129 NEAR / ABOVE OPTIMAL 130-159 BORDERLINE HIGH 160-189 HIGH >190 VERY HIGH CALC LDL NOT VALID WHEN TRIGLYCERIDE IS >400 MG/DL LAB [id number](LOINC) 35-150 mg/dL High Trig 168 Result Comment: <150 NORMAL 150-199 BORDERLINE HIGH 200-499 HIGH >500 VERY HIGH LAB [id number](LOINC) Normal VLDL 34 Performed By: #### [id number] #### [facility] [address] [place] [address] CARDIOLOGY VISIT Observed: 02/09/2018 Status: F Source: [place] REPORT 10:16 AM [facility] REPOSITORY [facility] [address] [place] [address]. [address] [place] [address] OFFICE VISIT Date of Service: 02/08/18 MR#: [id number] Acct: [id number] Name: REMI PRIETO Rep #: [id number] : 1960 Provider: Rox Ratliff Age/Sex: 58/F Location: [facility] [place] Status: Signed HPI HPI Details: REMI PRIETO, is a 58 F who presents to the office today for a cardiovascular follow-up. She has a history of hypertension and left bundle branch block in addition to hyperlipidemia. Pt has been having chest pain, she sts that this was different than what she had previous. It was to the left of the chest, it was a 9/10 it was under 5 minutes. She took an ASA for this. She has noted other occasions of chest pain. She has not had any worsening SOB. She does not have any palpitations. She does not have any near syncope/syncope. She does not have any edema. Intake Vital Signs02/08/18 Weight: 158 lb 02/08/18 Blood Pressure 145/80 Intake Visit Reasons: 1 Y FU Stereo Compiler Required: No Is patient in pain?: No Allergies topiramate [From Topamax] Adverse Reaction (Verified 02/08/18 10:46) Nausea Medications ALPRAZolam [Xanax] 0.5 mg PO QHS 06/24/15 [History Confirmed 02/08/18] Metoprol/Hydrochlorothiazide [Lopressor Hct 50-25 Tablet] 1 tab PO DAILY 06/24/15 [History Confirmed 02/08/18] Butalbital/Aspirin/Caffeine [Hxbixbmeom-FEV-Xjpsgxib Cap] 1 ea PO Q6H PRN 12/15/16 [History Confirmed 02/08/18] atorvastatin 80 mg tablet 80 mg PO QDAY 08/25/17 [History Confirmed 02/08/18] cholecalciferol (vitamin D3) 5,000 unit capsule 5,000 unit PO ONCE 08/25/17 [History Confirmed 02/08/18] mecobalamin (vitamin B12) 1,000 mcg disintegrating tablet,sublingual 1,000 mcg SUBLINGUAL QDAY 08/25/17 [History Confirmed 02/08/18] aspirin 81 mg tablet,delayed release 81 mg PO QDAY 02/08/18 [History Confirmed 02/08/18] hydroxychloroquine 200 mg tablet 200 mg PO BID tab 02/08/18 [History Confirmed 02/08/18] rizatriptan 10 mg tablet PO 30 Days #9 02/08/18 [History Confirmed 02/08/18] Nurse's Note: remi states she sometimes has sharp chest pain occasionally that travels to her back, followed by lightheadedness and sometimes nausea. PFS Medical History HLD (hyperlipidemia) (Chronic) Left bundle-branch block (Chronic) Essential (primary) hypertension (Chronic) Anxiety (Acute) Benign meningioma of brain (Acute) Fatty liver (Acute) Thyroid nodule (Acute) Migraines (Chronic) Rheumatoid arthritis (Chronic) Surgical History H/O breast biopsy (Inactive) H/O left cataract extraction (Inactive) H/O: hysterectomy (Inactive) History of arthroscopy of left shoulder (Inactive) History of incision and drainage (Inactive) S/P left rotator cuff repair (Inactive) S/P partial thyroidectomy (Inactive) S/P tonsillectomy (Inactive) right ankle (Inactive) right foot plate (Inactive) Family History Father Lung cancer Sister Ovarian cancer Other CVA (cerebral vascular accident) Heart disease Hypertension Myocardial infarction Sudden cardiac Thyroid disorder Social History Smoking Status: Never smoker ROS Const Const: Negative for weakness, fatigue, fever(s) or headache(s) Eyes Eyes: Negative for blind spots, loss of peripheral vision or transient loss of vision ENT ENT: Negative for headache(s), dizziness, tinnitus or Nosebleed/epistaxis Cardio Chest Pain: Yes Palpitations: No Edema: None Muscle aches with walking: None Resp Respiratory: Negative for SOB with activity, SOB at rest, SOB orthopnea\SOB lying down or Cough GI GI: Negative nausea, vomiting, heartburn or vomiting blood/hematemesis : Negative for hematuria Musc Musc: Negative for muscle aches/ myalgia Neuro Neuro: Negative for weakness, headache(s), dizziness, near syncope, syncope, lightheadedness or orthostatic symptoms Manuel Hematologic/Lymphatic: Negative for easy bleeding Endo Endo: Negative for fatigue Cardiology Exam Const Appearance: cooperative, no acute distress and well developed Orientation: alert, awake and oriented x3 Head Head: normocephalic and atraumatic Mouth: moist mucous membranes Eyes General: appearance normal, both eyes and all related structures Conjunctivae: conjunctivae normal Pupils: PERRL EOM: EOM intact bilaterally Neck Neck: normal visual inspection, no lymphadenopathy and no JVD Carotids: Negative bruit Neck Mass: Negative Neck mass Chest Chest inspection: normal inspection of the chest and symmetric chest movement Auscultation: Bilateral: Clear to Auscultation Cardio Palpation: normal PMI Rate: regular rate Rhythm: regular rhythm Heart sounds: S1 normal and S2 normal; negative rub, gallop or murmur GI GI: normal to inspection, soft, no hepatosplenomegaly and bowel sounds present; negative tender Neuro General: alert, awake, oriented x3, CN's II-XI intact bilaterally and moves all extremities Extremities Pulses: Normal: Right Posterior Tibial Pulse, Left Posterior Tibial Pulse, Right Radial Pulse, Left Radial Pulse Lower Extremity Edema: None: Bilateral Psych Psychological: normal affect Supplemental Info Echocardiogram in 2015 demonstrates normal LV size with an estimated ejection fraction of 55%. No regional wall motion abnormalities noted. Mild tricuspid insufficiency. RVSP 24 mmHg. Assessment AND Plan 1. Chest pain, unspecified type R07.9 Plan - GAVINO Lockhart Patient is having some chest discomfort. This is different than what she is described in the past. Is been quite sometime since she has had a stress test. Would like to obtain this to evaluate for underlying ischemia as she does have hyperlipidemia he had rheumatoid arthritis. 2. Essential hypertension I10 Plan - GAVINO Lockhart Will not make any adjustments in medications at this time. She will let us know if it is been running elevated. Orders Orders: 3. Pure hypercholesterolemia E78.00; E78.0 Plan - GAVINO Lockhart She is due to have these checked today. Will make adjustments if need be. Plan Detail Other Orders Orders: Additional Comments - GAVINO Lockhart The above patient was discussed with Dr. Rowell, he agrees with plan of care. Thank you for allowing us to participate in patient's plan of care, if you have any questions please do not hesitate to call. This note was generated using a voice recognition system and there may be incorrect words, spelling or punctuation errors that were not noted when reviewing the office note prior to saving. Follow Up 1 Year (AMERICAN SIGN LANGUAGE INTERPRETER) Coding Level of Care Code Off vis,est,level 4 Diagnoses Chest pain, unspecified type R07.9 Chest pain type: unspecified Essential hypertension I10 Pure hypercholesterolemia E78.00; E78.0 Hyperlipidemia type: pure hypercholesterolemia Coding Level of Care Code Off vis,est,level 4 Diagnoses Chest pain, unspecified type R07.9 Chest pain type: unspecified Essential hypertension I10 Pure hypercholesterolemia E78.00; E78.0 Hyperlipidemia type: pure hypercholesterolemia 02/08/18 1125 <Electronically signed by Rox MANCIA> Date Rox MANCIA 02/09/18 1016<Electronically signed by Maciel Rowell MD> Cosigner Signature: Date (if applicable) Maciel Rowell MD CC: Marcelo Garyman DO ORTHOPEDIC VISIT Observed: 01/24/2018 Status: F Source: [place] REPORT 9:31 AM [facility] REPOSITORY [facility] Orthopaedics AND Sports Medicine [address] [place] [address] OFFICE VISIT Date of Service: 01/24/18 MR#: [id number] Acct: [id number] Name: REMI PRIETO Rep #: [id number] : 1960 Provider: Sola Rodriguez DO Age/Sex: 57/F Location: [facility] [place] Status: Signed Intake Intake Visit Reasons: RIGHT WRIST Is patient in pain?: Yes Pain scale (1-10): 6 Allergies topiramate [From Topamax] Adverse Reaction (Verified 08/25/17 13:22) Nausea Medications ALPRAZolam [Xanax] 0.5 mg PO QHS 06/24/15 [History Confirmed 08/25/17] Metoprol/Hydrochlorothiazide [Lopressor Hct 50-25 Tablet] 1 tab PO DAILY 06/24/15 [History Confirmed 08/25/17] Butalbital/Aspirin/Caffeine [Qwunejehmf-AGM-Zwqpsolq Cap] 1 ea PO Q6H PRN 12/15/16 [History Confirmed 08/25/17] Hydroxychloroquine [Plaquenil] 200 mg PO DAILYCM 12/15/16 [History Confirmed 08/25/17] Rizatriptan Benzoate [Maxalt] 5 mg PO .X1 PRN 12/15/16 [History Confirmed 08/25/17] atorvastatin 80 mg tablet 80 mg PO QDAY 08/25/17 [History Confirmed 08/25/17] cholecalciferol (vitamin D3) 5,000 unit capsule 5,000 unit PO ONCE 08/25/17 [History Confirmed 08/25/17] mecobalamin (vitamin B12) 1,000 mcg disintegrating tablet,sublingual 1,000 mcg SUBLINGUAL QDAY 08/25/17 [History Confirmed 08/25/17] omega-3 fatty acids 1,000 mg capsule 1,000 mg PO QDAY 08/25/17 [History Confirmed 08/25/17] prochlorperazine maleate 5 mg tablet 5 mg PO ONCE 08/25/17 [History Confirmed 08/25/17] PFSH Medical History HLD (hyperlipidemia) (Chronic) Left bundle-branch block (Chronic) Essential (primary) hypertension (Chronic) Anxiety (Acute) Benign meningioma of brain (Acute) Fatty liver (Acute) Thyroid nodule (Acute) Migraines (Chronic) Rheumatoid arthritis (Chronic) Surgical History H/O breast biopsy (Inactive) H/O left cataract extraction (Inactive) H/O: hysterectomy (Inactive) History of arthroscopy of left shoulder (Inactive) History of incision and drainage (Inactive) S/P left rotator cuff repair (Inactive) S/P partial thyroidectomy (Inactive) S/P tonsillectomy (Inactive) right ankle (Inactive) right foot plate (Inactive) Family History Father Lung cancer Sister Ovarian cancer Other CVA (cerebral vascular accident) Heart disease Hypertension Myocardial infarction Sudden cardiac Thyroid disorder Social History Smoking Status: Never smoker HPI RIGHT WRIST: Details: REMI PRIETO is a 57 year old F here today for right thumb pain, she has relief for 2months from her last injection in July. She states when she drives alot she has increased pain, she is not wearing a brace today but is going to try one soon. Denies numbness, tingling or other associated symptoms. Patient has questions about surgery and would like another injection today. ROS Musc Reports joint pain, Reports stiffness Ortho Exam Right Wrist/Hand Skin/Wound: Yes CDI Contralateral Normal: No A1 kusum trigger: No Sensation: Radial: I, Ulnar: I, Median: I WRIST: cmc grind Office Procedures Ortho Injections Injections Yes CMC Right Details: Obtained consent for injection. Under sterile conditions, injected the patients right cmc with 0.5cc kenalog and 1cc bup. The patient tolerated the injection well without any noted complication. Patient should call our office if redness develops, pain worsens or if they have any concerns. Office Meds Kenalog Performing Provider: Sola Rodriguez DO Administered by: Sola Rodriguez DO on 01/24/18 08:19 Dose Route Admin Location Lot Number Expiration DateNDC Soyfreeze Operator 0.5 mg Intra-Articularright cmc [id number] 12/27/18 0930-3266-38 Half [employer] TRADE TO REBATE Assessment AND Plan 1. Primary osteoarthritis of first carpometacarpal joint of right hand M18.11 Plan Reviewed the surgery for CMC replacement and the pain relief with surgery. Discussed her medication aiding in the RA pain but the OA in thumb wont respond. The risks of surgery is decreased strength but she has weakness now. Instructed to use otc meds prn for pain relief. Will inject today. Follow up as needed or sooner if pain, swelling, numbness or associated symptoms, or concerns develop. All questions answered. Patient in agreement of plan. Plan Detail Other Orders Orders: Other Medications Discontinued: Kenalog (triamcinolone acetonide) 0.5 mg (0.05 mL) Intra- Articular ONCEM18.9 Lokesh Amanda Discontinued Reason: Office Medicati NS on has been Documented as given Coding Level of Care Code No Charge Diagnoses Primary osteoarthritis of first carpometacarpal joint of right hand M18.11 Osteoarthritis type: primary Additional Codes transcribing operator head.[facility] ([id number]) 01/24/18 0931 <Electronically signed by Sola Rodriguez DO> Date Sola Rodriguez DO Cosigner Signature: Date (if applicable) CC: SCREENING MAMM (CAD), Observed: 11/29/2017 Status: F Source: LOLA BILAT 5:11 PM [facility] REPOSITORY [facility] Imaging Services [address] [place] [address] SCREENING MAMM (CAD), BILAT MR#: [id number] Acct: [id number] Name: REMI PRIETO Rep #: [id number] : 1960 F 57 From: Ad Castano MD PCP: Marcelo Justice DO Status: REG CLI Study: SCREENING MAMM (CAD), BILAT Date of Exam: 11/29/17 Exam# [id number] Ordering Dr: Marcelo Justice DO MAMMOGRAPHY - BILATERAL SCREENING REASON FOR EXAM: Female, 57 years old. Routine annual screening examination. PERTINENT HISTORY: Remote right excisional breast biopsy. TECHNIQUE: Digital bilateral breast jordan (3D mammographic acquisition) in the CC and MLO projections. 2-D mediolateral oblique (MLO) and craniocaudad (CC) views of both breasts were obtained. CAD: Full Field Digital Mammography with Computer Added Detection was performed. COMPARISON: Comparison is made with prior study dated June 17, 2015 and May 22, 2014. FINDINGS: Breast Composition: There are scattered areas of fibroglandular density. There are no dominant masses or suspicious calcifications. No other significant abnormalities are identified. There has been no significant change since the prior study. BI/SCREENING MAMM (CAD), BILAT IMPRESSION: Stable bilateral screening mammogram. Yearly follow-up mammogram recommended. (A) ASSESSMENT CATEGORY: BIRADS Category 1: Negative. A letter regarding these results will be sent to the patient by the facility within 30 days. Approximately 10% of breast cancers are not detected by mammography. A normal mammogram should not delay biopsy of a clinically suspicious abnormality. [id number] Electronically Signed: Ad Castano MD at 9:06 EDT Tel [phone], Service support , CC: Marcelo Justice DO Staple Processing Machine Operator: Signed CRP, C-REACTIVE Collected: 10/19/2017 Status: F Source: [facility] 11:57 AM [facility] REPOSITORY TYPE CODE TESTS RESULT OUT OF RANGE REFERENCE UNITS LAB CRPQT 0.0-10.0 mg/L Normal CRP, 3.6 C-Reactive Protein Performed By: #### SEDR, CRPQT #### Unless otherwise noted, all testing performed by [address] [place] [address] CLIA: [id number] Blow Molder: Souleymane Swartz M.D. SED RATE Collected: 10/19/2017 Status: F Source: [facility] 11:57 AM [facility] REPOSITORY TYPE CODE TESTS RESULT OUT OF RANGE REFERENCE UNITS LAB SEDR 0-20 MM/hr. Normal Sed Rate 10 Performed By: #### SEDR, CRPQT #### Unless otherwise noted, all testing performed by [place] [address] CLIA: [id number] Blow Molder: Souleymane Swartz M.D. ORTHOPEDIC VISIT Observed: 08/25/2017 Status: F Source: COMFREY REPORT 3:31 PM [facility] REPOSITORY [facility] Orthopa[facility]ics AND Sports Medicine [address] [place] [address] OFFICE VISIT Date of Service: 08/25/17 MR#: [id number] Acct: [id number] Name: REMI PRIETO Rep #: [id number] : 1960 Provider: Sola Rodriguez DO Age/Sex: 57/F Location: [facility] Status: Signed Intake Intake Visit Reasons: RT HAND Is patient in pain?: Yes Pain scale (1-10): 9 Allergies topiramate [From Topamax] Adverse Reaction (Verified 08/25/17 13:22) Nausea Medications ALPRAZolam [Xanax] 0.5 mg PO QHS 06/24/15 [History Confirmed 08/25/17] Metoprol/Hydrochlorothiazide [Lopressor Hct 50-25 Tablet] 1 tab PO DAILY 06/24/15 [History Confirmed 08/25/17] Butalbital/Aspirin/Caffeine [Ucthtbveps-XHG-Jkdmcrwd Cap] 1 ea PO Q6H PRN 12/15/16 [History Confirmed 08/25/17] Hydroxychloroquine [Plaquenil] 200 mg PO DAILYCM 12/15/16 [History Confirmed 08/25/17] Rizatriptan Benzoate [Maxalt] 5 mg PO .X1 PRN 12/15/16 [History Confirmed 08/25/17] atorvastatin 80 mg tablet 80 mg PO QDAY 08/25/17 [History Confirmed 08/25/17] cholecalciferol (vitamin D3) 5,000 unit capsule 5,000 unit PO ONCE 08/25/17 [History Confirmed 08/25/17] mecobalamin (vitamin B12) 1,000 mcg disintegrating tablet,sublingual 1,000 mcg SUBLINGUAL QDAY 08/25/17 [History Confirmed 08/25/17] omega-3 fatty acids 1,000 mg capsule 1,000 mg PO QDAY 08/25/17 [History Confirmed 08/25/17] prochlorperazine maleate 5 mg tablet 5 mg PO ONCE 08/25/17 [History Confirmed 08/25/17] PFSH Medical History Anxiety (Acute) Benign meningioma of brain (Acute) Fatty liver (Acute) Thyroid nodule (Acute) Migraines (Chronic) Rheumatoid arthritis (Chronic) Surgical History H/O breast biopsy (Inactive) H/O left cataract extraction (Inactive) H/O: hysterectomy (Inactive) History of arthroscopy of left shoulder (Inactive) History of incision and drainage (Inactive) S/P left rotator cuff repair (Inactive) S/P partial thyroidectomy (Inactive) S/P tonsillectomy (Inactive) right ankle (Inactive) right foot plate (Inactive) Family History Father Lung cancer Sister Ovarian cancer Other CVA (cerebral vascular accident) Heart disease Hypertension Myocardial infarction Sudden cardiac Thyroid disorder Social History Smoking Status: Never smoker HPI RT HAND: Details: REMI PRIETO is a 57 year old F here today for right wrist pain. She complains of constant anterior wrist pain that radiates up mid forearm x2 weeks. Intermittent tingling sensation of the wrist. No numbness. No swelling. She had x-ray performed through multiple cut off saw operator's office. She has had prior injection about 8-9 months ago. She states the injection only lasted about 3 weeks before sharp pains came back. She takes Ibuprofen 1 tablet every 4 hours for pain which only helps some. ROS Const Reports system reviewed and no additional complaints, except as docu Eyes Reports system reviewed and no additional complaints, except as docu ENT Reports system reviewed and no additional complaints, except as docu Card Reports system reviewed and no additional complaints, except as docu Resp Reports system reviewed and no additional complaints, except as docu GI Reports system reviewed and no additional complaints, except as docu Reports system reviewed and no additional complaints, except as docu Musc Reports joint pain, Reports tingling Skin/Breast Reports system reviewed and no additional complaints, except as docu Neuro Yes tingling Psych Reports system reviewed and no additional complaints, except as docu Endo Reports system reviewed and no additional complaints, except as docu Manuel/Lymph Reports system reviewed and no additional complaints, except as docu Aller/Immun Reports system reviewed and no additional complaints, except as docu Office Procedures Ortho Injections Injections Yes CMC Right Details: Obtained consent for injection. Under sterile conditions, injected the patients right cmc with 1/2cc kenalog and 1cc bupivacaine. The patient tolerated the injection well without any noted complication. Patient should call our office if redness develops, pain worsens or if they have any concerns. Office Meds Kenalog Performing Provider: Sola Rodriguez DO Administered by: Sola Rodriguez DO on 08/25/17 13:48 Dose Route Admin Location Lot Number Expiration DateNDC Soyfreeze Operator 0.5 mg Intra-Articularright cmc [id number] 10/27/18 5966-8496-57 POP Properties Assessment AND Plan Plan patient tolerated the injection well. discussed possible surgical treatment options if injections fail. pateint aware. All questions answered. Patient in agreement of plan.Follow up as needed or sooner if pain, swelling, numbness or associated symptoms, or concerns develop. Continue conervative care. Follow up as needed or sooner if pain, swelling, numbness or associated symptoms, or concerns develop. All questions answered. Patient in agreement of plan. Orders Orders: Medications Discontinued: Kenalog (triamcinolone acetonide) 0.5 mg (0.05 mL) Intra- Articular ONCM19.049 Lokesh Patel Discontinued Reason: Office MedicaE NS tion has been Documented as given 08/25/17 1531 <Electronically signed by Sola FONTAINE Date Sola Torres Signature: Date (if applicable) CC: ALLERGIES ALLERGIES DATE TYPE / CODE NAME / CODE REACTION SEVERITY SOURCE 02/21/2018 Drug topiramate/D18939 Nausea Unknown [place] Allergy/416 5453(RXNORM) Community 159315([facility] ED CT) Repository 08/08/2015 DRUG TOPIRAMATE [facility] INGREDI/419 Three Repository 537923([facility] CT) Drug/640837 No Known [facility] 003([facility]) System Repository ENCOUNTERS ENCOUNTERS ADMIT/DISCHARGE ACCOUNT NUMBER ADMITTING ENCOUNTER LOCATION SOURCE CLASS 08/04/2018/08/04/20 [id number] Ambulatory BMSBuilding: [address] Repository 07/26/2018 [id number] Ambulatory [facility] ding:MTRAD Repository 06/15/2018 [id number] [facility] ding:LAB.FUT Repository URE 05/25/2018 [id number] Ambulatory [facility] ding:LAB.FUT Repository URE 05/24/2018 [id number] Ambulatory [facility] ding:BFHLAB Repository 04/26/2018/04/26/20 [id number] Ambulatory Building:[facility] [address] Three R Repository 04/17/2018 [id number] Ambulatory Building:[facility] SPORTSMEDGLE Three SSNER Repository 03/29/2018 [id number] Ambulatory [facility] ding:MTRAD Repository 03/08/2018 [id number] Ambulatory [facility] ding:CVS Repository 03/08/2018 [id number] Ambulatory BMSBuilding: [facility] Repository 02/21/2018 [id number] Ambulatory [facility] ding:HPRAD Repository 02/21/2018/02/22/20 [id number] Ambulatory BMSBuilding: [place] 18 BMS.[facility] Repository 02/14/2018/02/15/20 [id number] [place], Ambulatory [address] ding:[facility] Repository 02/14/2018 [id number] Ambulatory [address] [place] [address] Repository 02/08/2018/02/09/20 [id number] Ambulatory BMSBuilding: [place] 18 BMS.[facility] Repository 01/25/2018/01/26/20 [id number] Ambulatory Building:[place] [address] [address] Three R Repository 01/24/2018/01/25/20 [id number] Ambulatory BMSBuilding: [place] 18 BMS.[facility] Repository 11/29/2017 [id number] Ambulatory [facility] ding:OPBI Repository 10/19/2017 [id number] [place], Ambulatory [facility] Dr. Mannie Romero [facility] Repository 10/19/2017/10/19/19 [id number] Ambulatory Building:[address] Three R Repository 08/25/2017/08/25/20 [id number] Ambulatory BMSBuilding: [place] 17 BMS.[facility] Repository PAYERS PAYERS ENCOUNTER GUARANTOR PAYER SUBSCRIBER SOURCE 08/04/2018 REMI GUILLEN Primary REMI WILMER [place] [id number] TR Insurance:ANTHEMPolic SWIGERDOB: [address] y Number: [id number] Hospital 229[address]Bmz: (760) [id number] Repository [phone] () Date:[id number] [address]EY: 08/04/2018 Secondary NOT GIVENUNK [place] Insurance:SELF PAY [facility] Number: Effective Repository Date:2018-08-04 07/26/2018 REMI GUILLEN Primary REMI WILMER [place] [id number] TR Insurance:ANTHEMPolic SWIGERDOB: [address] y Number: [id number] Hospital 737[address]Mgx: (330 [id number] Repository [phone] () Date:3252-49-19JX [address] [place] [address]TT: 07/26/2018 Secondary NOT GIVENUNK [place] Insurance:SELF PAY [facility] Number: Effective Repository Date:2018-07-17 06/15/2018 REMI WILMER Primary REMI JO [place] [id number] TR Insurance:ANTHEMPolic SWIGERDOB: Community [address] [place] [address] y Number: [id number] Hospital 68355Rol: (330) [id number] Repository [phone] () Date:2755-96-82RP [address] [place] [address] 101[address]EB: 06/15/2018 Secondary NOT GIVENUNK [place] Insurance:SELF PAY [facility] Number: Effective Repository Date:2018-06-14 05/25/2018 REMI WILMER Primary REMI JO [place] [id number] TR Insurance:ANTHEMPolic SWIGERDOB: [address] y Number: [id number] Hospital [address]Akh: (330) [id number] Repository [phone] () Date:3836-29-24EK [address] [place] [address] 49599XT: 05/25/2018 Secondary NOT GIVENUNK [place] Insurance:SELF PAY [facility] Number: Effective Repository Date:2018-05-25 05/24/2018 REMI WILMER Primary REMI JO [place] [id number] TR Insurance:ANTHEMPolic SWIGERDOB: Community [address] [place] [address] y Number: [id number] Hospital 09761Zml: (330) [id number] Repository [phone] () Date:3097-56-42WF [address]ANQ, [place] [address]PA: 05/24/2018 Secondary NOT GIVENUNK [place] Insurance:SELF PAY [facility] Hospital Number: Effective Repository Date:2018-05-24 04/26/2018 REMI J Primary REMI J [facility] SWIGERDOB: Insurance:ANTHEMPolic SWIGERDOB: Three Repository [id number] y Number: [id number] [facility] [address] [id number] [address] Date:9331-42-83SP [address] [place] [address]Luq: [phone], [place] 966875 [phone] (HP) [address]WB: 04/17/2018 REMI J Primary REMI J [facility] SWIGERDOB: Insurance:ANTHEMPolic SWIGERDOB: Three Repository [id number] y Number: [id number] [facility] [id number] [address] Date:6591-53-68TM [address] [place] [address]57[address]Hqz: [phone], [place] [address] [phone] (HP) [address]UR: 03/29/2018 REMI WILMER Primary REMI WILMER [place] [id number] TR Insurance:ANTHEMPolic SWIGERDOB: [address] y Number: [id number] Hospital [address]Cku: (330 [id number] Repository [phone] () Date:6344-22-78XC [address] [address]EP: 03/29/2018 Secondary NOT GIVENUNK [place] Insurance:SELF PAY [facility] Hospital Number: Effective Repository Date:2018-03-28 03/08/2018 REMI WILMER Primary REMI WILMER [place] [id number] TR Insurance:ANTHEMPolic SWIGERDOB: [address] y Number: [id number] Hospital 35140Ghj: (197) [id number] Repository [phone] (HP) Date:9476-38-31MC[address] [address]SC: 03/08/2018 Secondary NOT GIVENUNK [place] Insurance:SELF PAY [facility] Number: Effective Repository Date:2018-02-08 03/08/2018 REMI GUILLEN Primary REMI Davila [id number] TR Insurance:ANTHEMPolic SWIGERDOB: [address] y Number: [id number] Hospital 40[address]Rel: (330 [id number] Repository [phone] () Date:6695-89-80EV [address] [place] [address] 25266CC: 03/08/2018 Secondary NOT GIVENUNK [place] Insurance:SELF PAY [facility] Number: Effective Repository Date:2018-03-08 02/21/2018 REMI GUILLEN Primary REMI GUILLEN [place] [id number] TR Insurance:ANTHEMPolic SWIGERDOB: [address] y Number: [id number] Hospital [address]Fym: (330 [id number] Repository [phone] () Date:5705-61-38LH [address] [place] [address]SX: 02/21/2018 Secondary NOT GIVENUNK [place] Insurance:SELF PAY [facility] Number: Effective Repository Date:2018-02-21 02/21/2018 REMI [id number] Primary REMI SWIGERDOB: [place] [facility] [address] Insurance:ANTHEMPolic [id number] [address] y Number: Hospital [address]Tcy: (330 [id number] Repository [phone] () Date:6304-53-79NQ [address] [place] [address] 665[address]XN: 02/21/2018 Secondary NOT GIVENUNK [place] Insurance:SELF PAY [facility] Number: Effective Repository Date:2018-02-21 02/14/2018 REMI Horton Primary REMI J [facility] SWIGERDOB: Insurance:ANTHEMPolic SWIGERDOB: [facility] [id number] y Number: Effective [id number] [facility] Date:2018-02-[address] [facility] [facility] [address] Repository [address] [place] [address] 1588-89-76Iquo [address] [place] [address]Xus: Name:Yifan [facility] [address]Yay: [address] [place] [address] (HP) 23577UV: [phone] () 02/14/2018 REMI J Primary REMI [facility] SWIGERDOB: Insurance:AnthemPolic SWIGERDOB: Hospitals y Number: [id number] Repository [facility] [address] [id number] [address] Date:Plan Name:[address] [id number]: [phone]: (HP) () 02/08/2018 REMI [id number] Primary REMI SWIGERDOB: [place] [facility] Insurance:ANTHEMPolic [id number] y Number: Hospital [address]Pyw: (552) [id number] Repository [phone] (HP) Date:6706-39-94RD[address] [address]QF: 02/08/2018 Secondary NOT GIVENUNK [place] Insurance:SELF PAY [facility] Hospital Number: Effective Repository Date:2017-08-01 01/25/2018 REMI J Primary REMI J [facility] SWIGERDOB: Insurance:ANTHEMPolic SWIGERDOB: Three Repository y Number: [id number] [facility] [id number] [address] Date:9041-61-36QC[address] [address]Fvh: [phone], [place] [address] [phone] (HP) [address]NS: 01/24/2018 REMI [id number] Primary REMI SWIGERDOB: [place] TR [address] [place] [address], Insurance:ANTHEMPolic [id number] [facility] [address]Jok: y Number: Hospital [id number] Repository (HP) Date:9207-78-06NV [address] [place] [address] 11437JC: 01/24/2018 Secondary NOT GIVENUNK [place] Insurance:SELF PAY [facility] Hospital Number: Effective Repository Date:2018-01-19 11/29/2017 REMI [id number] Primary REMI SWIGERDOB: [place] TR [address] [place] [address], Insurance:ANTHEMPolic [id number] [facility] [address]Avl: y Number: Hospital [id number] Repository (HP) Date:8722-71-31MB [address] [place] [address]MM: 11/29/2017 Secondary NOT GIVENUNK [place] Insurance:SELF PAY [facility] Hospital Number: Effective Repository Date:2017-11-01 10/19/2017 Primary REMI J [facility] Insurance:[employer] SWIGERDOB: [place] and [address] [place] [address] Number: [id number] [facility] [id number] [address] [facility] [address] Repository Date:Plan Name:[address] [address]Eyw: () 10/19/2017 REMI J Primary REMI J [facility] SWIGERDOB: Insurance:ANTHEMPolic SWIGERDOB: Three Repository [id number] y Number: [id number] [facility] [address] [id number] [address] [place] [address] Date:0735-61-84JU [address] [address]Trc: [phone], [place] [address] [phone] (HP) [address]PL: 08/25/2017 REMI [id number] Primary REMI SWIGERDOB: [place] TR [address] [place] [address], Insurance:ANTHEMPolic [id number] [facility] [address]Fgx: y Number: [facility] [id number] Repository (HP) Date:9287-75-77[address]LSAZXFQ, [place] [address]ML: 08/25/2017 Secondary NOT GIVENUNK [place] Insurance:SELF PAY [facility] Hospital Number: Effective Repository Date:2017-08-15
== END ==
PROVIDERS: Family Provider Family Medicine; PCP Family Medicine; Referring Provider Physician Assistant Medical; Visit Provider Family Medicine
DX: M25.569 Pain in unspecified knee (principal); E78.5 Hyperlipidemia, unspecified; I10 Essential (primary) hypertension
CPT/HCPCS: 36415; 73564; 80061; 80076

== ENCOUNTER → 2018-11-08 08:43 | Outpatient (CLI) | payer BC, SELFPAY ==
[2018-11-08 10:47] LABS: ALB/GLOB Ratio 1.4 RATIO (0.9-2.4); AST(SGOT) 19 U/L (15-37); Alanine Aminotransfer ALT/SGPT 25 U/L (13-56); Albumin, Serum 3.9 g/dL (3.2-5.0); Alkaline Phosphatase 66 U/L (45-117); Anion Gap 9 (5-15); BUN 11 mg/dL (7-18); BUN/Creat Ratio 19.5 RATIO (10-20); Bilirubin, Direct 0.05 mg/dL (0.00-0.30); Chloride 109 mmol/L (98-107); Cholesterol 222 mg/dL (200); Creatinine, Serum 0.56 mg/dL (0.55-1.02); EST Glomerular Filtration Rate 116 mL/min (>60); Est Glom Filt Rate - Afr Amer 141 mL/min (>60); Globulin 2.8 g/dL (2.2-4.2); Glucose 93 mg/dL (74-106); High Density Lipoprotein 46 mg/dL; Protein, Total 6.7 g/dL (6.4-8.2); Sodium Level 142 mmol/L (136-145); Triglycerides 246 mg/dL; Very Low Density Lipoprotein 49 mg/dL (5-40)
== END ==
PROVIDERS: Physician Assistant Medical; Family Provider Family Medicine; PCP Family Medicine; Referring Provider Family Medicine; Visit Provider Family Medicine
DX: Z00.00 Encounter for general adult medical examination without abnormal findings (principal); E78.5 Hyperlipidemia, unspecified
CPT/HCPCS: 36415; 80053; 80061; 82248

== ENCOUNTER → 2018-12-18 14:52 | Outpatient (CLI) | payer BC, SELFPAY | PROVIDERS: Family Provider Family Medicine; PCP Family Medicine; Referring Provider Family Medicine; Visit Provider Family Medicine | DX: E55.9 Vitamin D deficiency, unspecified (principal) | CPT/HCPCS: 36415; 82306 ==

== ENCOUNTER → 2019-02-09 | Outpatient (CLI) | payer BC, SELFPAY ==
--- NOTE | 2019-02-09 17:53 | CT_ITS ---
HISTORY:QUESTION OF FX OF RIGHT TALUS. PREVIOUS ORIF OF OTHER FRACTURES. RECENT SWELLING OF ANKLE QUESTION OF FX OF RIGHT TALUS. PREVIOUS ORIF OF OTHER FRACTURES. RECENT SWELLING OF ANKLE EXAMINATION: CT Lower Extremity W/O Contrast TECHNIQUE: Routine bone CT protocol was performed of the right ankle.... 2-D reformats were performed by the technologist. A radiation dose optimization technique was used for this scan. IV Contrast dosage and agent: None. COMPARISON: None FINDINGS: SOFT TISSUES: There is minimal fat stranding seen at the plantar surface of the foot. This may be secondary to dependent edema. No radiopaque foreign body. BONES/JOINTS: Postsurgical changes are seen within the lateral malleolus with sideplate and screws. There is a screw perpendicular to the plate. No evidence of hardware complication. There is minimal spurring seen at the tip of the medial malleolus as well as the lateral talus. This is in the region of the anterior talofibular ligament and may be secondary to prior trauma. There is minimal lateral talar tilt. There is a small calcaneal spur. Minimal dorsal talar spur. An is also minimal spurring seen at the anterior lateral talus. Postsurgical changes are seen at the first metatarsophalangeal joint with dorsal plate and screws and arthrodesis at this level. There is lucency surrounding the screws at the proximal half of the proximal phalanx first toe. This may be secondary to loosening. There is joint space narrowing at the lateral sesamoid and the first metatarsal joint. The alignment of the tarsals and metatarsals is maintained. CT/Extremity Lower without Contra IMPRESSION: There is no evidence of a talar fracture. There is minimal lateral talar tilt. No evidence of an acute fracture Postsurgical changes are seen at the lateral malleolus as discussed There are also postsurgical changes seen at the first metatarsophalangeal joint. Lucency is seen surrounding the screws within the proximal half of the proximal phalanx great toe which may be secondary to loosening. Comparison with prior images may be of benefit for further evaluation Individualized dose optimization techniques were used for this CT. at 1918 Reported and signed by: Yamilka Hdz DO Electronically Signed: Yamilka Hdz DO at 19:17 EDT Tel , Service support ,
== END | disposition home or self-care (01) ==
LOC: CT 17:51
PROVIDERS: Family Provider Family Medicine; PCP Family Medicine; Referring Provider Podiatrist Foot & Ankle Surgery; Visit Provider Podiatrist Foot & Ankle Surgery
DX: S92.114A Nondisplaced fracture of neck of right talus, initial encounter for closed fracture (principal)
CPT/HCPCS: 73700

== ENCOUNTER → 2019-03-27 | Outpatient (CLI) | payer BC, SELFPAY ==
[2019-02-27 15:22] VITALS: BMI 26.2
[2019-03-20 09:16] VITALS: BMI 27.8
--- NOTE | 2019-03-27 15:51 | MRI_ITS ---
STUDY: MRI RIGHT PROXIMAL HAND/WRIST REASON FOR EXAM: Severe pain at the base of the right thumb extending into wrist, rheumatoid arthritis. TECHNIQUE: Standardized fat and water weighted pulse sequences were obtained in all 3 orthogonal planes. COMPARISON: Radiographs 02/21/2018. FINDINGS: Normal visualized distal radius and ulna. There is a small effusion of the distal radioulnar joint (inversion recovery axial image 4). Normal triangular fibrocartilaginous complex (TFCC). There are small cysts in the capitate and proximal pole of the scaphoid (inversion recovery coronal image 12). Normal radiocarpal, intercarpal and midcarpal articulations. Normal pisotriquetral articulation. Normal visualized interosseous scapholunate ligament. There is tenosynovitis of the distal aspect of the first dorsal compartment (inversion recovery axial images 9, 10). There is mild flexor tenosynovitis of the first digit at the level of the proximal phalanx (inversion recovery coronal images 15, 16). Normal carpal tunnel with a normal median nerve. There is arthrosis of the carpometacarpal articulation of the thumb with chondral thinning and mild subchondral bone edema (versus recovery coronal images 15, 16). Normal second through fifth carpometacarpal articulations. Normal visualized metacarpal bones. There are very small subchondral cysts in the second and third metacarpal heads (inversion recovery coronal image 6). Otherwise, unremarkable metacarpophalangeal joints. Normal visualized proximal phalanges. There is no demonstrated soft tissue abnormality. MRI/Upper Ext/No Jt/ wo IMPRESSION: Arthrosis of the first carpometacarpal joint. Tenosynovitis of the distal aspect of the first dorsal compartment. Mild extensor pollicis longus tenosynovitis. Small effusion of the distal radioulnar joint. Electronically Signed: Erik Jason MD at 7:49 EDT Tel , Service support ,
[2019-03-27 17:33] LABS: T4 Free Direct 0.88 ng/dL (0.76-1.46); Thyroid Stim Hormone (TSH) 1.57 uIU/mL (0.358-3.74)
== END | disposition home or self-care (01) ==
PROVIDERS: Family Provider Family Medicine; PCP Family Medicine; Referring Provider Orthopaedic Surgery; Visit Provider Orthopaedic Surgery
DX: M18.11 Unilateral primary osteoarthritis of first carpometacarpal joint, right hand (principal); M65.4 Radial styloid tenosynovitis [de Quervain]; R29.898 Other symptoms and signs involving the musculoskeletal system; E07.9 Disorder of thyroid, unspecified
CPT/HCPCS: 36415; 73218; 84439; 84443

== ENCOUNTER 2019-05-02 11:54 | Day surgery (SDC) | payer BC, SELFPAY ==
--- NOTE | 2019-04-03 02:25 | HP_ITS ---
I have re-examined the patient. There are no clinical changes since date of exam. Intake Vital Signs 04/03/19 Body Mass Index (BMI) 27.8 Intake Visit Reasons: right thumb Chief Complaint: Right thumb pain Allergies topiramate [From Topamax] Adverse Reaction (Verified 03/20/19 09:16) Nausea PFSH Medical History (Updated 03/20/19 @ 10:12 by Lily Gan) Intermittent palpitations (Chronic) HLD (hyperlipidemia) (Chronic) Left bundle-branch block (Chronic) Essential (primary) hypertension (Chronic) Anxiety (Chronic) Benign meningioma of brain (Chronic) Fatty liver (Chronic) Meningioma (Chronic) Migraines (Chronic) Rheumatoid arthritis (Chronic) Thyroid nodule (Chronic) H/O: hysterectomy (Inactive) Surgical History (Updated 02/05/19 @ 21:00 by Lily Gan) History of hysterectomy (Resolved) History of left heart catheterization (Resolved 2004) History of partial thyroidectomy (Resolved) History of shoulder surgery (Resolved) History of tonsillectomy (Resolved) H/O breast biopsy (Inactive) H/O left cataract extraction (Inactive) History of arthroscopy of left shoulder (Inactive) History of incision and drainage (Inactive) S/P left rotator cuff repair (Inactive) S/P partial thyroidectomy (Inactive) S/P tonsillectomy (Inactive) right ankle (Inactive) right foot plate (Inactive) Family History (Updated 08/25/17 @ 11:52 by Mercy Jimenez) Father Lung cancer Sister Ovarian cancer Other CVA (cerebral vascular accident) Heart disease Hypertension Myocardial infarction Sudden cardiac Thyroid disorder Social History (Updated 04/03/19 @ 14:25 by Sola Rodriguez DO) Smoking Status: Never smoker HPI right thumb: Surgical H&P: Yes Details: Parts of this documentation were recorded by a scribe, this documentation accurately reflects the service provided and the decisions made by me, Sola Rodriguez DO 04/03/19 [id number]. REMI PRIETO is a 59 year old F here today for F/U after having right thumb MRI completed. Patient denies any changes in pain. Co ntinues to have pain over her right thumb along with limited ROM. Denies numbness, tingling or other associated symptoms. Has had 2 CMC joint injections and had a right dequervians injection in 12/26/18. Ortho Exam Right Wrist/Hand Right Wrist: Yes Shade's Test and CMC Grind Motor: EPL: 5, FDP-2: 5, 1st Dorsal Interosseous: 5, APB: 5 Sensation: Radial: I, Ulnar: I, Median: I Assessment & Plan Problems 1. Arthritis of carpometacarpal (CMC) joint of right thumb M18.11 2. Tenosynovitis of right wrist M65.9 Plan Reviewed patients MRI of right thumb. Patient educated that she has CMC arthritis, tenosynovitis and de quervain's tenosynovitis. Patient educated that there is surgical options for de quervain's tenosynovitis along with CMC injection during surgery. Reviewed the pre-operative plans with the patient. Risks and benefits of the procedure were fully explained, including but not limited to infection, neurovascular injury, continued pain, arthritis, stiffness, need for further surgery, re-injury, DVT, PE, general risks of anesthesia, and loss of limb or life. The patient understands all the risks and wishes to proceed with surgery consent this day. Patient wishes to be placed on the surgery schedule for 05/02/19 for right 1st compartment wrist release and right CMC joint injection with repair as indicated. Patient educated that she will be in a thumb spica splitn for 1 week post op. Follow up 2 weeks post op or sooner if pain, swelling, numbness or associated symptoms, or concerns develop. All questions answered. Patient in agreement of plan. Coding Level of Care Code Off vis,est,level 4 Diagnoses Arthritis of carpometacarpal (CMC) joint of right thumb M18.11 Tenosynovitis of right wrist M65.9 04/03/19 7405 <Electronically signed by Sola rosen DO> Date _ Sola Rodriguez DO
[2019-04-03 14:13] VITALS: BMI 27.8
--- NOTE | 2019-05-02 | SYN_PTH ---
PATIENT: REMI PRIETO LOC: [facility] [place] U#:[id number] AGE/SX: 59/F ROOM: RE05/02/[address]: Dr. Sola Rodriguez DO : 1960 BED: DIS: 05/02/2019 SPEC #: [id number] RECD: 05/02/19 15:25 STATUS: TYREE DEBBIE #: [id number] EMMY: 05/02/19 00:[address]: Sola Rodriguez DEPT: SURGICAL PATHOLOGY RECD BY: Rafael Smart ENTERED: 05/03/19 08:06 SP TYPE: SYNOVIUM OTHR DR: Dr. Kale Justice DO Tissues: Synovial tissue of joint, NOS Procedures: Surgery Specimen Level IV HEADER OPERATION: DeQuervains release, CMC injection PRE-OP DIAGNOSIS: Arthritis of carpometacarpal (CMC) joint of right thumb; tenosynovitis of right wrist TISSUE SUBMITTED: Synovial lining of right wrist tendon MICROSCOPIC DIAGNOSIS Synovial lining of right wrist tendon: Fragments of fibroadipose tissue, fibroconnective tissue and synovial tissue with mild reactive changes. ABE:claudine 05/04/19 MICROSCOPIC DESCRIPTION Slides are reviewed. GROSS DESCRIPTION Received in fixative is one container labeled with the patient's name and designated synovial lining of right wrist tendon. The specimen consists of multiple irregular fragments of medrano-white soft tissue that in aggregate measure 0.7 x 0.5 x 0.1 cm. The entire specimen is submitted in one cassette. / ABE:claudine 05/03/19 TC:5 CPT: 98563
[2019-05-02 12:21] VITALS: BP 149/78; PULSE 77; RESP 16; TEMP 37.2; O2SAT 98; BMI 26.2
[2019-05-02] MEDS: Lactated Ringers 1,000 ML 75 ML IV (12:35)
[2019-05-02] MEDS: Cefazolin 2 GM in 0.9% Normal Saline 100 ML IV (14:17)
--- NOTE | 2019-05-02 14:17 | DCINST_ITS ---
Discharge Diet: No Restrictions - leave dressing cdi, may use hand as tolerated, follow up in 2 weeks for suture removal, call with concerns Discharge Activity: May Not Drive May shower in (days): 1 Ice area for (Minutes): 20 - Every hour while awake. Weight Bearing Status: Weight bearing as tolerated Keep extremity elevated above heart level: Operative Extremity Call your doctor if your incision/area has: Continuous Slow Oozing, Sudden Increased Bleeding, Increased Pain/ Swelling, Increased Redness, Foul Smelling Discharge Call your doctor if you observe: Fever of 101 or Higher, Coldness, Increased Pain, Numbness or Tingling, Change in Color, Calf discomfort Allergies/Adverse Reactions: Allergies hydrocodone [From Vicodin] Adverse Reaction (Verified 05/02/19 12:15) Nausea/Vom/Diarrhea topiramate [From Topamax] Adverse Reaction (Verified 05/02/19 12:15) Nausea tramadol Adverse Reaction (Verified 05/02/19 12:15) Nausea/Vom/Diarrhea Medications to take at Discharge Metoprol/Hydrochlorothiazide [Lopressor Hct 50-25 Tablet] 1 tab PO DAILY 06/24/15 Butalbital/Aspirin/Caffeine [Vqrpyzizqy-QMU-Omtehxex Cap] 1 ea PO Q6H PRN 12/15/16 cholecalciferol (vitamin D3) 5,000 unit capsule 5,000 unit PO DAILY 08/25/17 hydroxychloroquine 200 mg tablet 200 mg PO BID tab 02/08/18 rizatriptan 10 mg tablet 1 tab PO PRN PRN 30 Days #9 02/08/18 alprazolam 0.5 mg tablet 0.5 mg PO QHS PRN 03/20/19 meloxicam 15 mg tablet 15 mg PO QDAY PRN tab 03/20/19 Cranberry Conc/Ascorbic Acid [Cranberry Concentrate Softgel] 1 ea PO PRN PRN 04/25/19 Lisinopril [Prinivil] 10 mg PO DAILY 04/25/19 Multivit-Min/Folic Acid/Biotin [Hair, Skin & Nails Caplet] 1 ea PO DAILY 04/25/19 Pravastatin Sodium 40 mg PO QHS 04/25/19 Acetaminophen/Codeine #3 [Tylenol #3 Tablet] 1 - 2 tablet PO Q6H PRN PRN #30 tablet 05/02/19 The following prescriptions were given: Acetaminophen/Codeine #3 [Tylenol #3 Tablet] 1 - 2 tablet PO Q6H PRN PRN #30 tablet PRN Reason: Pain Transmission Status: Sent to [facility] Primary Care Physician: Kale Justice DO [Primary Care Provider] - Test Results: Test results from this visit will be discussed in further detail at your follow- up appointment, if applicable. Please Follow Up With: Sola Rodriguez DO - [phone]
--- NOTE | 2019-05-02 14:17 | PCM.OPRPT ---
Report of Operation Date of Procedure: 05/02/19 Pre-Operative Diagnosis: right dequervains, cmc oa Post-Operative Diagnosis: same Surgery/Procedure Performed:: right dequervains extensor kusum release, synovectomy, cmc inejction Type of Anesthesia:: John Knight Anesthesiologist: Tremayne Awan Estimated Blood Loss (mL): minimal Fluids Replaced: 700 cc lr Description of Procedure: Preop note Patient is a 5-year-old female with continued right wrist pain she has been injected with decreased into the first extensor compartment multiple times with relief of symptoms however can turn her wrist as turned and continued pain as well as arthritis for CMC injection she had done well with injections and then in the past. As well. Risk benefits and alternatives were discussed the patient. Risks including but not limited to blood loss, blood clot, infection, neurovascular, failure procedure, loss of life and loss of limb. Patient would like proceed with right de Quervain's first extensor compartment release and CMC injection repair as indicated. Next Operative note Patient seen and examined preoperative holding area. Right wrist was marked. Patient brought to the operating placed supine on the operating table. Sign, anesthesia, antibiotics were administered the right arm was prepped and draped usual sterile fashion with a tourniquet around her upper arm. Beer block was initiated. We then after prepping and draping the arm was then marked out our incision for her to quiver and extent first compartment release. Timeout was performed. We then checked with pickups to ensure that the block was working which was. Again timeout was performed. Then use a 15 blade to create about a centimeter incision over the radial styloid we dissected down to the level of the kusum the kusum was released and the extensor tendons of the first compartment were found to need to be quite synovectomy Vitas around them and some we did perform a synovectomy and sent it to pathology for further evaluation. We then irrigated the incision with copious amounts amounts of sterile saline we closed with deep 3-0 Vicryl and 4-0 Monocryl. We then injected the CMC injected CMC joint with 1 cc ropivacaine and 1/2 cc Kenalog 40. Tourniquet was deflated for a total working time of 30 minutes. Patient tolerated procedure well no comp occasions [facility] recovery room in stable condition. Next Postoperative Next Weight-bear as tolerated right upper extremity next Follow-up in 2 weeks Pharmacy has prescriptions Discussed with family Lu disclaimer This note was generated with [employer] dictation software. It may contain incorrect words, spelling, and punctuation that were not noted in checking the note before signing.
[2019-05-02] MEDS: Mupirocin Ointment 22gm Tube 1 APPLIC (14:24)
[2019-05-02] MEDS: Bupivacaine 0.25% 30 ML Vial (14:24)
[2019-05-02] MEDS: Triamcinolone Acetonide 40 MG/ML Vial (14:25)
--- NOTE | 2019-05-02 14:39 | HP.PCM_ITS ---
History and Physical [facility] Medical Records Department [address] [place] [address] History and Physical 04/03/19 0225 MR#: [id number] Acct: [id number] Name: REMI PRIETO Rep #: [id number] : 1960 59 From: Sola Rodriguez DO PCP: Kale Justice DO Status: PRE SDC Location: SDC I have re-examined the patient. There are no clinical changes since date of exam. Intake Vital Signs 04/03/19 Body Mass Index (BMI) 27.8 Intake Visit Reasons: right thumb Chief Complaint: Right thumb pain Allergies topiramate [From Topamax] Adverse Reaction (Verified 03/20/19 09:16) Nausea PFSH Medical History (Updated 03/20/19 @ 10:12 by Lily Gan) Intermittent palpitations (Chronic) HLD (hyperlipidemia) (Chronic) Left bundle-branch block (Chronic) Essential (primary) hypertension (Chronic) Anxiety (Chronic) Benign meningioma of brain (Chronic) Fatty liver (Chronic) Meningioma (Chronic) Migraines (Chronic) Rheumatoid arthritis (Chronic) Thyroid nodule (Chronic) H/O: hysterectomy (Inactive) Surgical History (Updated 02/05/19 @ 21:00 by Lily Gan) History of hysterectomy (Resolved) History of left heart catheterization (Resolved 2004) History of partial thyroidectomy (Resolved) History of shoulder surgery (Resolved) History of tonsillectomy (Resolved) 1
[2019-05-02 14:45] VITALS: BP 130/79; BP 149/78; PULSE 73; RESP 16; TEMP 36.8; O2SAT 98
[2019-05-02 14:50] VITALS: BP 135/83; BP 149/78; PULSE 72; RESP 16; O2SAT 99
[2019-05-02 14:55] VITALS: BP 148/81; BP 149/78; PULSE 70; RESP 16; O2SAT 99
[2019-05-02 15:00] VITALS: BP 149/78; BP 152/70; PULSE 72; RESP 16; TEMP 36.9; O2SAT 99
[2019-05-02 15:17] VITALS: BP 149/78
== END 2019-05-02 15:27 | disposition home or self-care (01) ==
LOC: SDC 11:56 → AC 11:58
PROVIDERS: Family Provider Family Medicine; PCP Family Medicine; Referring Provider Orthopaedic Surgery; Visit Provider Orthopaedic Surgery
PROC: (CPT 64721; principal; 2019-05-02 13:15)
DX: M65.4 Radial styloid tenosynovitis [de Quervain] (principal); M18.11 Unilateral primary osteoarthritis of first carpometacarpal joint, right hand; E78.5 Hyperlipidemia, unspecified; M06.9 Rheumatoid arthritis, unspecified; E07.9 Disorder of thyroid, unspecified; F41.9 Anxiety disorder, unspecified; Z79.899 Other long term (current) drug therapy; I10 Essential (primary) hypertension
CPT/HCPCS: 01810; 20605; 25000; 88305; J7120

== ENCOUNTER → 2019-09-26 15:13 | Outpatient (CLI) | payer BC, SELFPAY ==
[2019-05-15 14:54] VITALS: BMI 26.2
--- NOTE | 2019-09-26 15:15 | BI_ITS ---
MAMMOGRAPHY - BILATERAL SCREENING REASON FOR EXAM: Female, 59 years old. Routine annual screening examination. PERTINENT HISTORY: Non-contributory. TECHNIQUE: Digital bilateral breast kelly (3D mammographic acquisition) in the CC and MLO projections. 2-D mediolateral oblique (MLO) and craniocaudad (CC) views of both breasts were obtained. CAD: Full Field Digital Mammography with Computer Added Detection was performed. COMPARISON: Comparison is made with prior study dated November 29, 2017 and June 17, 2015. FINDINGS: Breast Composition: There are scattered areas of fibroglandular density. There are no dominant masses or suspicious calcifications. No other significant abnormalities are identified. There has been no significant change since the prior study. BI/SCREEN MAMM (CAD) W/KELLY BILAT IMPRESSION: Stable bilateral screening mammogram. Yearly follow-up mammogram recommended. (A) ASSESSMENT CATEGORY: BIRADS Category 1: Negative. A letter regarding these results will be sent to the patient by the facility within 30 days. Approximately 10% of breast cancers are not detected by mammography. A normal mammogram should not delay biopsy of a clinically suspicious abnormality. [id number] Electronically Signed: Ad Castano, at 8:11 EST , Service support ,
== END ==
PROVIDERS: Family Provider Family Medicine; PCP Family Medicine; Referring Provider Family Medicine; Visit Provider Family Medicine
DX: Z12.31 Encounter for screening mammogram for malignant neoplasm of breast (principal)
CPT/HCPCS: 77063; 77067

== ENCOUNTER → 2020-01-08 07:17 | Outpatient (CLI) | payer BC, SELFPAY ==
[2019-05-15 14:54] VITALS: BMI 26.2
[2020-01-08 10:40] LABS: Cholesterol 267 mg/dL (200); High Density Lipoprotein 49 mg/dL; T4 Free Direct 0.91 ng/dL (0.76-1.46); Thyroid Stim Hormone (TSH) 1.99 uIU/mL (0.358-3.74); Triglycerides 226 mg/dL; Very Low Density Lipoprotein 45 mg/dL (5-40)
== END ==
PROVIDERS: PCP Family Medicine; Referring Provider Family Medicine; Visit Provider Family Medicine
DX: E03.8 Other specified hypothyroidism (principal); E78.5 Hyperlipidemia, unspecified
CPT/HCPCS: 36415; 80061; 84439; 84443

== ENCOUNTER → 2020-05-14 08:02 | Outpatient (CLI) | payer BC, SELFPAY ==
[2020-04-01 09:58] VITALS: BMI 27.1
--- NOTE | 2020-05-14 08:05 | RAD_ITS ---
STUDY: X-RAY - ESOPHAGUS (BARIUM SWALLOW) WITH FLUOROSCOPY REASON FOR EXAM: Female, 60 years old. DYSPHAGIA, CHOKES EASILY. and quot;CLUMPS OF MUCUS UNABLE TO GET OUT and quot;. TECHNIQUE: 15 view(s) of the esophagus were obtained following swallowing of barium. FLUOROSCOPY TIME (if supplied): (0:30) minutes/seconds COMPARISON: None. FINDINGS: There is no demonstrated esophageal foreign body. There is no demonstrated stricture or mucosal abnormality. Normal gastroesophageal junction, without a demonstrated hiatal hernia. Normal visualized aortic arch and descending thoracic aorta. Normal visualized pulmonary parenchyma. Normal visualized osseous structures of the thorax. RAD/Esophagus Dual Contrast IMPRESSION: Normal plain film x-ray examination (barium swallow) of the esophagus. Electronically Signed: Ad Castano, at 11:05 EDT , Service support ,
== END ==
PROVIDERS: PCP Family Medicine; Referring Provider Otolaryngology; Visit Provider Otolaryngology
DX: R13.10 Dysphagia, unspecified (principal)
CPT/HCPCS: 74221

== ENCOUNTER → 2020-06-02 06:14 | Outpatient (CLI) | payer BC, SELFPAY ==
[2020-04-01 09:58] VITALS: BMI 27.1
--- NOTE | 2020-06-02 10:45 | STRESSREP ---
Stress Test Report Pharmacologic myocardial perfusion stress test. 60-year-old lady with a history of hypertension and hyperlipidemia. Stress protocol: Resting EKG demonstrates normal sinus rhythm with a rate of 71 bpm left bundle branch block is noted. 0.4 mg of regadenoson was infused per usual protocol followed by 100 and is saline flush injection continuous EKG monitoring was performed. The patient maintained sinus rhythm throughout the recording. At rest left bundle branch block changes were noted throughout at peak infusion nonspecific ST changes were noted. The maximum heart rate attained was 118 bpm. The peak blood pressure was noted to be 152/100 mmHg. Myocardial perfusion protocol. 11.4 mCi of technetium 99m sestamibi was injected at rest. 0.4 mg of regadenoson was infused per usual protocol. At peak infusion 34.0 mCi of technetium 99m sestamibi was injected stress images were obtained stress and rest images were reconstructed and compared in the short axis vertical long horizontal long axis. Gated images were also obtained Perfusion SPECT analysis: Review of the stress images demonstrate normal uptake of tracer noted in all areas of the myocardium the resting images similar demonstrate normal uptake of tracer noted in all areas of the myocardium. No reversibility is noted suggest ischemia no previous infarct is noted. Gated SPECT analysis: The gated ejection fraction is 56%. Conclusion: Normal pharmacologic myocardial perfusion stress test. Preserved ejection fraction.
== END ==
PROVIDERS: PCP Family Medicine; Referring Provider Physician Assistant Medical; Visit Provider Physician Assistant Medical
DX: R07.9 Chest pain, unspecified (principal); I44.7 Left bundle-branch block, unspecified
CPT/HCPCS: 78452; 93017; A9500; A4216; J2785

== ENCOUNTER → 2020-06-04 17:19 | Outpatient (CLI) | payer BC, SELFPAY ==
[2020-04-01 09:58] VITALS: BMI 27.1
== END ==
PROVIDERS: PCP Family Medicine; Referring Provider Family Medicine; Visit Provider Family Medicine
DX: U07.1 COVID-19 (principal)
CPT/HCPCS: 87635; C9803; U0003

== ENCOUNTER → 2020-06-13 14:05 | Outpatient (CLI) | payer BC, SELFPAY ==
[2020-04-01 09:58] VITALS: BMI 27.1
--- NOTE | 2020-06-13 14:08 | RAD_ITS ---
STUDY: X-RAY CHEST REASON FOR EXAM: Female, 60 years old. Recently diagnosed with Covid-19, now experiencing dyspnea TECHNIQUE: Single AP portable view of the chest. COMPARISON: Comparison is made with prior examination dated 06/05/2015. FINDINGS: Hyperinflation. The lungs are clear. There is no demonstrated pleural abnormality. Normal size heart. Normal mediastinum and sarai. Normal visualized pulmonary arteries. Normal visualized aortic arch and descending thoracic aorta. There are degenerative changes of the visualized thoracic spine. Normal visualized ribs, clavicles, and shoulders. There is no demonstrated abnormality of the visualized soft tissue structures of the upper abdomen. RAD/Chest PA and Lateral IMPRESSION: Normal x-ray examination of the chest. Electronically Signed: Ad Castano, at 14:48 EDT , Service support ,
[2020-06-13 15:02] LABS: Basophil# 0.02 X10^3/uL; Basophil% 0.2 % (0-1); Eosinophil# 0.02 X10^3/uL; Eosinophils% 0.2 % (0-5); Hematocrit 42.3 % (37-47); Hemoglobin 13.5 g/dL (12.0-15.0); Lymphocyte % 19.6 % (19-41); Mean Corp Hgb Conc 31.9 g/dL (32-36); Mean Corpuscular Hgb 29.3 pg (27.0-32.0); Mean Platelet Vol. 10.2 fl (6.2-12.0); Monocyte% 6.1 % (0-10); NRBC Flagged by Analyzer 0 % (0-5); Neutrophil # 5.98 X10^3/uL (2.7-7.7); Neutrophil % 73.3 % (47-70); Platelet Count 240 K/mm3 (150-450); RBC Distribution Width CV 12.4 % (11.6-14.6); RBC Distribution Width SD 42.2 fl (35.1-43.9); White Blood Count 8.2 K/mm3 (4.4-11.0)
[2020-06-13 15:38] LABS: D-Dimer Quantitative (DVT/PE) 0.57 FEU/ug/m (0.27-0.49)
== END ==
PROVIDERS: PCP Family Medicine; Referring Provider Family Medicine; Visit Provider Family Medicine
DX: R06.00 Dyspnea, unspecified (principal)
CPT/HCPCS: 36415; 71046; 85025; 85379

== ENCOUNTER 2020-06-13 17:22 | Emergency (ER) | payer BC, SELFPAY ==
[2020-04-01 09:58] VITALS: BMI 27.1
[2020-06-13 17:23] VITALS: BP 157/86; PULSE 75; RESP 16; TEMP 36.3; O2SAT 98; BMI 25.6
[2020-06-13 19:17] VITALS: BP 156/72; PULSE 82; RESP 19; TEMP 36.3; O2SAT 98
--- NOTE | 2020-06-13 19:17 | ED.VIS.GEN ---
History of Present Illness Chief Complaint: Abn Labs Informant: Patient Onset: Days Context: Sudden Onset Timing: Continuous - Nonproductive cough and dyspnea Quality: Upper respiratory due to COVID-19 Location: Upper respiratory Current Severity: Mild Maximum Severity: Moderate Worsened by: Dyspnea on exertion Relieved by: Rest Associated Symptoms: Loss of taste and smell, nonproductive cough aches Narrative: Patient is a 60-year-old woman who is a non-smoker. She had upper respiratory symptoms and had a Covid test performed last week that was positive. She was sent here because of an elevated D-dimer 0.57. She had increased shortness of breath. Her cough remains nonproductive. She still has no taste or smell. She complains of nasal congestion and slight throat discomfort. She denies leg pain, swelling discoloration. She has no history of VTE. She denies pleuritic chest pain. Prior similar symptoms: Yes Recent Illness/Hospitalization: Yes - Past Medical History (1) Essential (primary) hypertension Status: Chronic (2) HLD (hyperlipidemia) Status: Chronic (3) Intermittent palpitations Status: Chronic (4) Left bundle-branch block Status: Chronic Past Medical History - Allergies and Home Meds Allergies/Adverse Reactions: Allergies hydrocodone [From Vicodin] Adverse Reaction (Verified 04/01/20 13:30) Nausea/Vom/Diarrhea topiramate [From Topamax] Adverse Reaction (Verified 04/01/20 13:30) Nausea tramadol Adverse Reaction (Verified 04/01/20 13:30) Nausea/Vom/Diarrhea Primary Care Physician: Kale Justice DO [Primary Care Provider] - Prior records reviewed: Yes Surgical History: noncontributory Lives: Alone Smoking Status: Never smoker Alcohol: None Drugs: None Review of Systems General: Reports: Malaise. Denies: Chills, Fever, Subjective, Sweats Eyes: Denies: Visual changes - bilaterally, Blurred Vision - bilaterally ENT: Reports: Rhinorrhea, Sore throat Cardiovascular: Denies: Chest pain, Palpitations Respiratory: Reports: Dyspnea, Cough, Dyspnea on exertion. Denies: Sputum, Orthopnea, Paroxysmal nocturnal dyspnea Gastrointestinal: Denies: Abdominal pain, Nausea, Vomiting, Diarrhea, Melena, Hematochezia Genitourinary: Denies: Dysuria, Hematuria, Frequency Musculoskeletal: Denies: Myalgias, Arthralgias, Neck pain, Back pain, Swelling, Extremity Pain Skin: Denies: Rash, Wounds Neurological: Reports: Weakness. Denies: Headache, Parasthesia Endocrine: Denies: Polyuria, Polydipsia Physical Exam Vital Signs/Narrative: Vital Signs Temp Pulse Resp BP Pulse Ox 06/13/20 17:23 97.4 F L 75 16 157/86 H 98 Inital Vital Signs reviewed: Yes General: Well nourished, Well developed, No Acute Distress Head: Normocephalic, Atraumatic Eyes: Perrl, EOMI ENT: Moist mucous membranes, No rhinorrhea Neck: Supple, Nontender Cardiovascular: Regular rate, Regular rhythm, No murmurs Respiratory: No distress, Chest nontender, Rales - As noted right lower lobe with the increase vocal fremitus. Abdomen: Soft, Nontender, Nondistended, Normal bowel sounds Back: Nontender, Normal Inspection Extremities: Nontender, No edema, - - There is no asymmetry, swelling, discoloration, leg vein distention, palpable cords or tenderness along the distribution of the deep venous system. Skin: Normal color, No rash Neurological: Alert, Oriented x3, Cranial nerves II-XII grossly intact, Normal Strength, Normal Sensation Psychological: Normal affect, Normal Mood Diagnostic/Tx/Re-eval Patient had outpatient chest x-ray which was negative. Blood work is remarkable for a D-dimer of 0.57. However when corrected for age is normal. Patient symptoms are not related to COVID-19. Clinically she has a right lower lobe pneumonia. Patient was informed she has no treatment. Since she has a normal heart rate, respiratory rate and pulse ox 90% on room air she is safe for discharge to home. ED Disposition - Plan for ED Patient: Disposition: Home or Assisted Living Diagnosis: Pneumonia due to COVID-19 virus Instructions: ED PNEUMONITIS Adult Referrals: Kale Justice DO [Primary Care Provider] - As Needed
[2020-06-13] MEDS: dexAMETHasone 10 MG/ML Vial PO.IVFORM (19:55)
[2020-06-13 19:58] VITALS: PULSE 74; RESP 17; O2SAT 98
--- NOTE | 2020-06-13 19:58 | ED.RN ---
iv, monitor, ekg, and xray not completed per dr. carrera.
== END 2020-06-13 19:59 | disposition home or self-care (01) ==
LOC: ED 19:33
PROVIDERS: Emergency Provider Emergency Medicine; PCP Family Medicine
DX: U07.1 COVID-19 (principal); J12.89 Other viral pneumonia; I10 Essential (primary) hypertension; E78.5 Hyperlipidemia, unspecified; I44.7 Left bundle-branch block, unspecified; Z79.899 Other long term (current) drug therapy
CPT/HCPCS: 99281; 99283; A4216

== ENCOUNTER → 2020-08-12 14:10 | Outpatient (CLI) | payer BC, SELFPAY ==
--- NOTE | 2020-08-12 14:15 | RAD_ITS ---
STUDY: X-RAY CHEST REASON FOR EXAM: Female, 60 years old. Continued shortness of breath, patient had COVID 9 weeks ago TECHNIQUE: PA and lateral views of the chest. COMPARISON: Comparison is made with prior study dated 06/13/2020. FINDINGS: Hyperinflation. There is no demonstrated pleural abnormality. Normal size heart. Normal mediastinum and sarai. Normal visualized pulmonary arteries. Normal visualized aortic arch and descending thoracic aorta. There are mild degenerative changes of the visualized thoracic spine. Normal visualized ribs, clavicles, and shoulders. There is no demonstrated abnormality of the visualized soft tissue structures of the upper abdomen. RAD/Chest PA and Lateral IMPRESSION: No acute abnormality is seen. Hyperinflation. Electronically Signed: Ad Castano, at 13:59 EST , Service support ,
== END ==
PROVIDERS: PCP Family Medicine; Referring Provider Family Medicine; Visit Provider Family Medicine
DX: R06.02 Shortness of breath (principal)
CPT/HCPCS: 71046

== ENCOUNTER → 2020-10-07 15:45 | Outpatient (CLI) | payer BC, SELFPAY ==
[2020-10-07 17:37] LABS: Absolute Lymphocyte Count 2.06 X10^3/uL (0.83-4.51); Absolute Neutrophil Count 2.6 X10^3/uL (2.0-7.7); Basophil# 0.03 X10^3/uL; Basophil% 0.6 % (0-1); Eosinophil# 0.12 X10^3/uL; Eosinophils% 2.3 % (0-5); Hematocrit 39.3 % (37-47); Lymphocyte # 2.06 X10^3/ul (4.0); Lymphocyte % 38.9 % (19-41); Mean Corp Hgb Conc 33.1 g/dL (32-36); Mean Corpuscular Hgb 30.2 pg (27.0-32.0); Mean Corpuscular Volume 91.2 fL (81-99); Mean Platelet Vol. 10.3 fl (6.2-12.0); Monocyte# 0.45 X10^3/uL; Monocyte% 8.5 % (0-10); NRBC Flagged by Analyzer 0 % (0-5); Neutrophil # 2.63 X10^3/uL (2.7-7.7); Neutrophil % 49.7 % (47-70); Platelet Count 272 K/mm3 (150-450); RBC Distribution Width CV 12.3 % (11.6-14.6); RBC Distribution Width SD 41.1 fl (35.1-43.9); Red Blood Count 4.31 M/mm3 (4.2-5.4); White Blood Count 5.3 K/mm3 (4.4-11.0)
[2020-10-07 17:52] LABS: ALB/GLOB Ratio 1.2 RATIO (0.9-2.4); AST(SGOT) 18 U/L (15-37); Alanine Aminotransfer ALT/SGPT 31 U/L (13-56); Albumin, Serum 3.8 g/dL (3.2-5.0); Alkaline Phosphatase 76 U/L (45-117); Anion Gap 4 (5-15); BUN 17 mg/dL (7-18); BUN/Creat Ratio 23.6 RATIO (10-20); Calcium,Total 8.7 mg/dL (8.5-10.1); Chloride 109 mmol/L (98-107); Creatinine, Serum 0.72 mg/dL (0.55-1.02); EST Glomerular Filtration Rate 87 mL/min (>60); Est Glom Filt Rate - Afr Amer 106 mL/min (>60); Globulin 3.2 g/dL (2.2-4.2); Glucose 102 mg/dL (74-106); Potassium 3.7 mmol/L (3.5-5.1); Sodium Level 142 mmol/L (136-145)
== END ==
PROVIDERS: PCP Family Medicine; Visit Provider Family Medicine
DX: Z01.818 Encounter for other preprocedural examination (principal)
CPT/HCPCS: 36415; 80053; 85025

== ENCOUNTER → 2020-10-08 15:41 | Outpatient (CLI) | payer BC, SELFPAY ==
--- NOTE | 2020-10-08 15:46 | EKG12_ITS ---
Test Reason : PRE SURGERY Blood Pressure : / mmHG Vent. Rate : 070 BPM Atrial Rate : 070 BPM P-R Int : 160 ms QRS Dur : 124 ms QT Int : 446 ms P-R-T Axes : 066 079 019 degrees QTc Int : 481 ms Normal sinus rhythm Incomplete left bundle branch block Abnormal ECG Confirmed by TAYLOR TODD, HALI ([id number]), editor greeting card ROCÍO COX ([id number]) on 10/09/2020 10:33:20 AM Referred By: Darin De La Rosa Confirmed By:HALI VAZQUEZ MD
== END ==
PROVIDERS: PCP Family Medicine; Referring Provider Specialist; Visit Provider Specialist
DX: Z01.818 Encounter for other preprocedural examination (principal); Z01.810 Encounter for preprocedural cardiovascular examination
CPT/HCPCS: 93005

== ENCOUNTER 2021-01-12 11:30 | Outpatient (RCR) | payer BC, SELFPAY ==
--- NOTE | 2020-11-19 13:18 | HP.OTEVAL ---
Patient's Visit Information REMI PRIETO is a 60 year old F, referred to Occupational Therapy by Dr. Darin De La Rosa MD, with a diagnosis of unilateral primary OA of right 1st carpometacarpal joint. Date of Evaluation: 11/19/20 Occupational Therapist: Rox Vázquez, FREDA/Kay, CHT - Subjective This 60 year old female was seen for OT eval with dx of right Unilateral primary osteoarthrisits of 1st carpometacarpal joint right hand-pt states sx was 4 weeks and 5 days. pt arrives today in need of custom orthosis and to initiate cmc arthroplasty protocol. pt arrives with cast removed this am. states pain is 7/10 because she attempted to use her right hand when pulling up her pants. pt reports she has trouble with ADLs and IADLs at this time. 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 - Pain right hand 7 Pain Intensity Range: 3, 7 - ROM Wrist: right 20/20 left 60/70 CMC: right 0 left 22 MP: right 20 left 40 IP: right 25 left 50 - Strength Security Installation Technician: right NT left 52 Lateral Pinch: right NT left 16# Tripod Pinch: right NT left 14# Strength Comments: will test right coil winder/pinch at later date - Quick DASH-Disab of Arm,Shoulder& Hand Quick DASH Score: 81.6650 - Hand/Wrist Evaluation Total Score of Pain & Functional Sections: 82 - Goals Goal:100% adherence to protocol: Yes Comment: CMC arthroplasty protocol Goal:Daily scar massage when approriate: Yes Goal:ROM equal to unaffected hand: Yes Goal:Security Installation Technician/Pinch strength at least 75% of unaffected hand: Yes Goal:No pain with affected hand use: Yes Goal:Full use of affected hand in daily activities including: Yes Other Goal: pt will demo IND doffing/donning of orthosis to provide protection/support for the next 8 weeks. - Rehabilitation General Assessment: pt arrives s/p 4 weeks and 5 days from right cmc arthroplasty. pt is currently in need of custom orthosis to provide support and protection while healing. 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 pt is in need of skilled OT services 1x week for 8weeks. Pt in need of custom orthosis and ed. on protection and support of right thumb. Today therapist ed. pt on dx and the cmc arthroplasty procedure. Therapist initiated wrist ROM and supported cmc thumb IP and MP motion. pt demo understanding and agree to POC. Rehabilitation Potential: Good - Anticipated Interventions A/AAROM/PROM, Strengthening, Scar Care, Triggerpoint Release, Orthoses, Joint Protection/Energy Conservation, Ergonomic Education, Fine Motor Coord/Krystian, ADL Training, Education re assistive Equipment, Education re Diagnosis - Visit Plan Frequency: 1-2x /Week Duration: 2 Months TEXT: Thank you for the opportunity to evaluate your patient. For Medicare and Medicare HMO plans, please review the plan of care and approve it. It will need to be FAXED BACK to us at [phone] for Medicare purposes. Please let me know if there are questions or concerns regarding this plan of care. Physician Signature: Date:
--- NOTE | 2021-01-12 14:56 | OTREVAL_ITS ---
Dr. Darin De La Rosa MD, It has been my pleasure to treat REMI PRIETO over the last 4 visits for unilateral primary OA of right 1st carpometacarpal joint. Please see the progress note below for an update on the occupational therapy plan of care! Subjective: pt arrives to session- 12 weeks and 2 days s/p pt states she continues to have some pain- toward the end of the day- pt states she is returning to work and will use her thumb brace. Objective/Function: right wrist 65/ 40. right CMC 15. right MP 20. right IP 45. opposition to tip of LF. right geothermal powerplant mechanic helper is 20# this is increase from 0. left geothermal powerplant mechanic helper strength is 45#. right lateral pinch 8#. pt continues to demo MP hyper- ext with pinch tasks- therapist advised pt in thumb stabilization exercises and to continue with for next 3 -6 months. pt demo understanding. 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 pt demo understanding. But after review of HEP pt realized she was performing her exercises to long of a period of time vs what she was instructed to do. pt assured therapist she would do 3-4 min at a time vs 30 min. . pt has made good gains and feel sx was successful but due to her arthritis she has had prolonged edema and pain limiting her use. therapist advise pt to continue with use of thumb brace for heavy work tasks. Plan Frequency: 1x/Week Duration: 3 Weeks Plan: Continue POC, complete HEP, Goals - Goals Patient Goals: Regain Mobility, Decrease Pain, Return to Work, Use Hand/Wrist/Arm Normally Again Goal:100% adherence to protocol: Yes Goal:Daily scar massage when approriate: Yes Goal:ROM equal to unaffected hand: Yes Goal:Circuit Board Drafter/Pinch strength at least 75% of unaffected hand: Yes Goal:No pain with affected hand use: Yes Goal:Full use of affected hand in daily activities including: Yes Other Goal: pt will demo IND doffing/donning of orthosis to provide protection/support for the next 8 weeks. Pt able to doff/don orthosis at IND level at this date. Anticipated Interventions Anticipated Interventions: A/AAROM/PROM, Strengthening, Scar Care, Triggerpoint Release, Orthoses, Joint Protection/Energy Conservation, Ergonomic Education, Fine Motor Coord/Krystian, ADL Training, Education re assistive Equipment, Education re Diagnosis Please do not hesitate to contact me at [phone] by phone or if you have questions or concerns regarding this new plan of care! Sincerely, Rox Vázquez, OTR/L, CHT
--- NOTE | 2021-04-20 12:40 | HP.OTDCSUM ---
It has been my pleasure to treat REMI PRIETO under orders from Dr. Darin De La Rosa MD, for the diagnosis of unilateral primary OA of right 1st carpometacarpal joint for a total of 4 visit(s). Please see the following information for a summary of their discharge status. % Improvement: 75 Objective/Function: right wrist 65/ 40. right CMC 15. right MP 20. right IP 45. opposition to tip of LF. 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 left photoengraving finisher strength is 45#. right lateral pinch 8#. pt continues to demo MP hyper-ext with pinch tasks- therapist advised pt in thumb stabilization exercises and to continue with for next 3 -6 months. pt demo understanding. 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 pt demo understanding. But after review of HEP pt realized she was performing her exercises to long of a period of time vs what she was instructed to do. pt assured therapist she would do 3-4 min at a time vs 30 min. . pt has made good gains and feel sx was successful but due to her arthritis she has had prolonged edema and pain limiting her use. therapist advise pt to continue with use of thumb brace for heavy work tasks. 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 Pt able to doff/don orthosis at IND level at this date. Plan: Continue POC, complete HEP, If there are questions or concerns regarding this patient's occupational therapy, please fell free to call me at [phone]. Thank you for the referral of this patient. Sincerely, Rox Vázquez, OTR/L, CHT
== END 2021-01-12 19:00 | disposition home or self-care (01) ==
LOC: OT 11:30
PROVIDERS: PCP Family Medicine; Referring Provider Specialist; Visit Provider Specialist
DX: M18.11 Unilateral primary osteoarthritis of first carpometacarpal joint, right hand (principal)
CPT/HCPCS: 97035; 97110; 97140; 97166; 97530

== ENCOUNTER → 2021-04-28 12:53 | Outpatient (CLI) | payer BC, SELFPAY ==
--- NOTE | 2021-04-28 13:04 | MRI_ITS ---
HISTORY: OLFACTORY HALLUCINATIONS, DISEQUILLIBRIUM, MEMORY IMPAIRMENT EXAMINATION: MR Brain WO/W Contrast TECHNIQUE: Multiplanar and multisequence MR images of the brain and small field of view sequences of the internal auditory canals were obtained before and after the administration of IV contrast. IV Contrast dosage and agent: 14 ml Dotarem COMPARISON: 01/04/17 FINDINGS: BRAIN PARENCHYMA: No MRI evidence of hemorrhage. No evidence of acute infarct. Stable central and cortical involutional changes are noted. There is stable mild increased T2 and FLAIR signal abnormality in the periventricular white matter. No intracranial mass or mass effect. No abnormal contrast enhancement. There is preservation of the lai/white matter interface. Normal sella turcica, pituitary gland, infundibular stalk, optic chiasm and hypothalamus. The internal auditory canals are patent. Posterior fossa structures are unremarkable. CSF SPACES: Appropriate for age. No hydrocephalus. Basal cisterns are patent. VASCULAR SYSTEM: Normal flow voids in the major intracranial circulation. CALVARIUM, SKULL BASE, PARANASAL SINUSES AND MASTOID AIR CELLS: Clear. No discrete lytic or blastic abnormalities. ORBITS: Both globes, extraocular muscles, optic nerves and retrobulbar fat appear unremarkable. MRI/Brain W/WO Contrast IMPRESSION: Chronic involutional and white matter changes. No acute intracranial process. No significant interval change from prior examination. at 1524 Reported and signed by: Singh Barreto MD Electronically Signed: Singh aBrreto MD at 15:23 EDT Tel , Service support ,
== END ==
PROVIDERS: PCP Family Medicine; Referring Provider Family Medicine; Visit Provider Family Medicine
DX: R42 Dizziness and giddiness (principal); R41.3 Other amnesia; R44.2 Other hallucinations
CPT/HCPCS: 70553; A9575

== ENCOUNTER → 2021-06-04 13:48 | Outpatient (CLI) | payer OTHER, SELFPAY ==
--- NOTE | 2021-06-04 13:50 | ECHOD_ITS ---
Reason For Study: SOB, HTN. Procedure This was a 2D Doppler, Color Flow transthoracic echocardiogram. Exam performed in department. Left Ventricle Normal LV size. Left ventricular systolic function is normal. The estimated ejection fraction is 60 %. Normal diastology for age. No regional wall motion abnormalities noted. Right Ventricle Normal RV size. Normal systolic function. Atria Normal left atrium. Normal right atrium. Mitral Valve Normal mitral valve. Tricuspid Valve Normal tricuspid valve. Aortic Valve Normal aortic valve. Trisinus/trileaflet aortic valve. Pulmonic Valve Normal pulmonic valve. Great Vessels Normal aortic root. Pericardium/Pleural No pericardial effusion. MMode/2D Measurements & Calculations LVIDd: 4.3 cm IVSd: 1.0 cm Ao root diam: 2.8 cm LVIDs: 2.9 cm LVPWd: 0.96 cm RVDd: 2.8 cm FS: 33.3 % LAV(MOD-bp): 62.7 ml LA A4 area: 18.9 cm2 LA dimension(2D): 3.7 cm LAV(MOD-bp) Indexed: 35.0 ml/m2 LAV(MOD-sp2): 53.8 ml LAV(MOD-sp4): 61.9 ml RA A4 area: 12.3 cm2 Time Measurements MV dec time: 0.23 sec Doppler Measurements & Calculations MV E max dewayne: 78.0 cm/sec Lat Peak E' Dewayne: 9.0 cm/sec Med Peak E' Dewayne: 7.1 cm/sec MV A max dewayne: 66.7 cm/sec E/E' lat: 8.6 E/E' med: 11.0 MV E/A: 1.2 Ao V2 max: 102.2 cm/sec LV V1 max: 87.3 cm/sec PA V2 max: 109.1 cm/sec Ao max P.2 mmHg LV V1 max P.1 mmHg TR max dewayne: 217.5 cm/sec TR max P.0 mmHg ECHO/Echo Complete Interpretation Summary Normal LV size. Left ventricular systolic function is normal. The estimated ejection fraction is 60 %. Structurally normal valves. Ordering Physician: Lisa Hernandez Referring Physician: Kale Justice Performed By: Ashley Mathew RDCS, RVT
== END ==
PROVIDERS: PCP Family Medicine; Referring Provider Nurse Practitioner Gerontology; Visit Provider Nurse Practitioner Gerontology
DX: R06.00 Dyspnea, unspecified (principal); I10 Essential (primary) hypertension
CPT/HCPCS: 93306

== ENCOUNTER 2021-12-09 06:57 | Outpatient (CLI) | payer OTHER, SELFPAY ==
--- NOTE | 2021-12-09 07:17 | US_ITS ---
STUDY: ABDOMINAL ULTRASOUND - RIGHT UPPER QUADRANT REASON FOR VISIT: Female, 61 years old fatty liver and abdominal pain TECHNIQUE: Ultrasound evaluation of the right upper quadrant was performed with real-time and static lai-scale imaging. TECHNICAL QUALITY: Adequate. COMPARISON: Comparison is made with prior examination dated 08/10/2012. FINDINGS: Liver: The liver is enlarged and measures 19.8 cm. There is increased echogenicity consistent with fatty infiltration. The bile ducts are within normal limits. There is hepatic color flow. The direction of portal flow is hepatopetal. There is a 1 cm x 1.5 cm x 0.9 cm cyst in the right lobe of the liver. Gallbladder: Normal distended gallbladder. The gallbladder wall measures 3 mm. There is a negative sonographic Romero''s sign. There is no pericholecystic fluid. There are no gallstones. Common Bile Duct (C.B.D.): The common bile duct measures 3 mm. Pancreas: Normal size of the head, body and tail of the pancreas. There is normal echogenicity of the pancreas. There is no demonstrated pancreatic mass or cyst. Right Kidney: Normal size of the right kidney. The right kidney measures 11.5 cm x 5.2cm x 4.4 cm. Normal renal cortex. The right cortex measures 1.8 cm. There is no demonstrated renal mass or cyst. There is no right hydronephrosis. US/Abdomen Limited IMPRESSION: Hepatomegaly and diffuse fatty infiltration of the liver. 1 cm x 1.5 cm x 0.9 cm cyst in the right lobe of the liver. Electronically Signed: Ad Castano MD at 14:36 EDT ,
--- NOTE | 2021-12-09 07:17 | US_ITS ---
STUDY: ABDOMINAL ULTRASOUND - ELASTOGRAPHY REASON FOR VISIT: Female, 61 years old. Fatty infiltration of the liver. TECHNIQUE: Liver stiffness measurements were obtained on a DeYapa RS 85 ultrasound machine using a CA 1-7 probe following the SRU guidelines. 3 measurements were obtained using a 2-D-SWE method. The IQR/M was 12% suggesting a quality data set. TECHNICAL QUALITY: Adequate. COMPARISON: None. FINDINGS: Liver: Fatty infiltration of the liver. Median liver stiffness measured 6 kPa. US/Elastography Parenchyma/Organ IMPRESSION: Liver stiffness measures 6 kPa compatible with F2-F3 (Mild to moderate liver fibrosis) Metavir score. Electronically Signed: Ad Castano MD at 10:01 EDT ,
[2021-12-09 07:54] LABS: Erythrocyte Sedimentation Rate 5 mm/hr (0-30)
[2021-12-09 07:55] LABS: Absolute Lymphocyte Count 2.09 X10^3/uL (0.83-4.51); Absolute Neutrophil Count 2.3 X10^3/uL (2.0-7.7); Basophil# 0.02 X10^3/uL; Basophil% 0.4 % (0-1); Eosinophil# 0.08 X10^3/uL; Eosinophils% 1.6 % (0-5); Hematocrit 38.6 % (37-47); Hemoglobin 13.1 g/dL (12.0-15.0); Lymphocyte # 2.09 X10^3/ul (0.83-4.51); Lymphocyte % 42.5 % (19-41); Mean Corp Hgb Conc 33.9 g/dL (32-36); Mean Corpuscular Hgb 30.7 pg (27.0-32.0); Mean Corpuscular Volume 90.4 fL (81-99); Mean Platelet Vol. 9.8 fl (6.2-12.0); Monocyte# 0.37 X10^3/uL; Monocyte% 7.5 % (0-10); NRBC Flagged by Analyzer 0 % (0-5); Neutrophil # 2.33 X10^3/uL (2.7-7.7); Neutrophil % 47.4 % (47-70); Platelet Count 266 K/mm3 (150-450); RBC Distribution Width CV 12.4 % (11.6-14.6); RBC Distribution Width SD 40.4 fl (35.1-43.9); Red Blood Count 4.27 M/mm3 (4.2-5.4); White Blood Count 4.9 K/mm3 (4.4-11.0)
[2021-12-09 08:14] LABS: ALB/GLOB Ratio 1.2 RATIO (0.9-2.4); AST(SGOT) 18 U/L (15-37); Alanine Aminotransfer ALT/SGPT 35 U/L (13-56); Albumin, Serum 3.7 g/dL (3.2-5.0); Alkaline Phosphatase 68 U/L (45-117); Anion Gap 5 (5-15); BUN 15 mg/dL (7-18); BUN/Creat Ratio 21.9 RATIO (10-20); CRP 6.95 mg/L (0.0-3.0); Calcium,Total 8.7 mg/dL (8.5-10.1); Chloride 109 mmol/L (98-107); Creatinine, Serum 0.68 mg/dL (0.55-1.02); EST Glomerular Filtration Rate 92 mL/min (>60); Est Glom Filt Rate - Afr Amer 112 mL/min (>60); Ferritin 79 ng/mL (8-252); Globulin 3.2 g/dL (2.2-4.2); Glucose 102 mg/dL (74-106); LDH 169 U/L (84-246); Potassium 3.6 mmol/L (3.5-5.1); Protein, Total 6.9 g/dL (6.4-8.2); Sodium Level 141 mmol/L (136-145)
[2021-12-09 08:17] LABS: AST(SGOT) 20 U/L (15-37); Alanine Aminotransfer ALT/SGPT 35 U/L (13-56); Albumin, Serum 3.7 g/dL (3.2-5.0); Alkaline Phosphatase 67 U/L (45-117); Bilirubin, Direct 0.07 mg/dL (0.00-0.30); Cholesterol 264 mg/dL (200); Globulin 3.1 g/dL (2.2-4.2); High Density Lipoprotein 47 mg/dL; Protein, Total 6.8 g/dL (6.4-8.2); Triglycerides 212 mg/dL; Very Low Density Lipoprotein 42 mg/dL (5-40)
[2021-12-09 08:56] LABS: Hemoglobin A1c 5.9 % (3.8-5.6)
[2021-12-09 09:44] LABS: HIV - WCH Non-Reactive (Nonreactive)
[2021-12-10 15:10] LABS: Anti-Centromere B Ab <0.2 AI (0.0-0.9); Anti-Chromatin <0.2 AI (0.0-0.9); Anti-Jo <0.2 AI (0.0-0.9); Anti-Scleroderma-70 AB <0.2 AI (0.0-0.9); RNP Ab <0.2 AI (0.0-0.9); SJOGREN'S Anti-SS-A test < 0.2 AI (0.0-0.9); SJOGREN'S Anti-SS-B test < 0.2 AI (0.0-0.9); Smith Ab <0.2 AI (0.0-0.9)
[2021-12-10 20:08] LABS: Anti-Mitochondrial AB <20.0 Units (0.0-20.0); Anti-dsDNA Ab 1 IU/mL (0-9)
[2021-12-11 09:09] LABS: Angiotensin Convert Enzyme 67 U/L (14-82); Ceruloplasmin 22.1 mg/dL (19.0-39.0); Cytoplasmic Ab (C-ANCA) <1:20 titer (Neg:<1:20); HEPATITIS B SURFACE AG Negative (Negative); Hepatitis A IgM Antibody Negative (Negative); Hepatitis B Core AB IgM Negative (Negative)
[2021-12-11 13:33] LABS: AFP, Tumor Marker 5.7 ng/mL (0.0-9.2); Anti-Smooth Muscle ABS 10 Units (0-19); Copper, Serum or Plasma 98 ug/dL (80-158); Haptoglobin 190 mg/dL (37-355); Hep C Antibodies 0.1 s/co ratio (0.0-0.9); Perinuclear Ab (P-ANCA) <1:20 titer (Neg:<1:20)
== END 2021-12-09 23:59 | disposition home or self-care (01) ==
LOC: US 06:59
PROVIDERS: Nurse Practitioner Gerontology; PCP Family Medicine; Referring Provider Internal Medicine Gastroenterology; Visit Provider Internal Medicine Gastroenterology
DX: K76.0 Fatty (change of) liver, not elsewhere classified (principal); R10.9 Unspecified abdominal pain; E78.00 Pure hypercholesterolemia, unspecified
CPT/HCPCS: 36415; 76705; 76981; 80053; 80061; 80074; 80076; 82105; 82164; 82390; 82525; 82728; 83010; 83036; 83516; 83615; 85025; 85652; 86140; 86225; 86235; 86256; 86703

== ENCOUNTER 2022-01-13 07:10 | Day surgery (SDC) | payer OTHER, SELFPAY ==
--- NOTE | 2022-01-13 | EGD_PTH ---
PATIENT: REMI PRIETO LOC: EN U#:[id number] AGE/SX: 61/F ROOM: RE01/13/[address]: Dr. Keo Sarmiento DO : 1960 BED: DIS: 01/13/2022 SPEC #: [id number] RECD: 01/13/22 12:57 STATUS: TYREE DEBBIE #: [id number] EMMY: 01/13/22 00:[address]: Keo Sarmiento DEPT: SURGICAL PATHOLOGY RECD BY: Rafael Smart ENTERED: 01/13/22 12:58 SP TYPE: EGD BIOPSY OT DR: Dr. Kale Justice DO Tissues: A - Duodenum, NOS B - Pyloric antrum C - Gastric mucous membrane D - Esophageal mucous membrane E - Esophageal mucous membrane Procedures: Special Stain Group II Surgery Specimen Level IV Alcian Blue/PAS (control) HEADER OPERATION: EGD ([facility] [place]) with biopsies PRE-OP DIAGNOSIS: Abdominal pain, nausea TISSUE SUBMITTED: A ? Duodenum biopsy, B ? Prepyloric biopsy, C ? Gastric antrum for H. pylori and path, D ? Distal esophagus biopsy, E ? Proximal esophagus biopsy MICROSCOPIC DIAGNOSIS A. Duodenum, biopsy: Fragments of duodenal mucosa with mild Jo gland hyperplasia. B. Prepyloric biopsy: Mild gastritis. See microscopic description. C. Gastric antrum, biopsy: Mild gastritis. See microscopic description and comment. D. Distal esophagus, biopsy: Fragments of gastroesophageal mucosa with chronic inflammation. Intestinal metaplasia (goblet cell metaplasia) not identified. See comment. E. Proximal esophagus, biopsy: Fragments of gastroesophageal mucosa with chronic inflammation. Intestinal metaplasia (goblet cell metaplasia) not identified. See comment. SJ:rg 01/14/2022 COMMENT C. The results of immunohistochemistry for Helicobacter pylori will be reported separately ([id number]). D & E. Alcian blue/PAS stain with matched control is used in the evaluation of the specimen. MICROSCOPIC DESCRIPTION Slides are reviewed. B & C. The specimen shows fragments of gastric mucosa with chronic inflammatory cell infiltrates in the lamina propria consisting of lymphocytes and plasma cells, consistent with mild chronic gastritis. GROSS DESCRIPTION A - Received in fixative is one container labeled with the patient's name and designated duodenum biopsy. The specimen consists of multiple irregular fragments of light medrano soft tissue that in aggregate measure 1 x 0.6 x 0.1 cm. The specimen is totally submitted in one cassette. B - Received in fixative is one container labeled with the patient's name and designated prepyloric biopsy. The specimen consists of one irregular fragment of light medrano soft tissue that measures 0.4 x 0.4 x 0.1 cm. The specimen is totally submitted in one cassette. C - Received in fixative is one container labeled with the patient's name and designated gastric antrum biopsy. The specimen consists of one irregular fragment of light medrano soft tissue that measures 0.4 x 0.3 x 0.1 cm. The specimen is totally submitted in one cassette. D - Received in fixative is one container labeled with the patient's name and designated distal esophagus biopsy. The specimen consists of multiple irregular fragments of light medrano soft tissue that in aggregate measure 1 x 0.3 x 0.1 cm. The specimen is totally submitted in one cassette. E - Received in fixative is one container labeled with the patient's name and designated proximal esophagus biopsy. The specimen consists of multiple irregular fragments of light medrano soft tissue that in aggregate measure 0.8 x 0.3 x 0.1 cm. The specimen is totally submitted in one cassette. / SJ:rg 01/13/2022 TC:3 CPT: 22420 x5, 15533 x2
[2022-01-13] MEDS: Lactated Ringers 1,000 ML 15 ML IV (07:25)
[2022-01-13 07:41] VITALS: BP 156/80; PULSE 66; RESP 17; TEMP 36.7; O2SAT 97; BMI 28.5
--- NOTE | 2022-01-13 07:52 | PCM.HP.BLA ---
History and Physical Date of Admission: 01/13/22 REMI PRIETO, is a 61 F who presents to the office today for Medical history includes hypertension, left bundle branch block and hyperlipidemia (follows with [facility]); stress test 06.02.20 reported at normal pharmacologic stress test with maintained EF 56%, echocardiogram 06.04.21 without wall motion abnormality. Migraine headaches (neurology). Thyroid lobectomy 06.30.15 for thyroid mass with pathology revealing multinodular goiter with inflammation. PCP and motorcycle deliverer seen who encouraged presentation to this clinic. Also has difficulty with migraines. Neurologist being seen for migraines. Rheumatoid arthritis, osteoporosis and osteoarthritis. Unsure of last colonoscopy date. US performed 08.10.12 found liver measurement 15.4cm with fatty infiltration and [id number] cyst in the right lobe. Remaining exam without abnormal comment. Barium swallow 05.14.20 returned as normal. Nausea occurring at least daily with an itching feeling in her throat and gagging. Has attempted diary without trigger identification. Onset about two months ago with progression. Zofran prescribed previously which is helpful to take away the sharpness of the nausea. Amy-seltzer also helpful. Painful knot ?like a Lv horse? LUQ after eating lasting about two hours. Additionally, has bloating following bread and cheese intake. Onset of both is about two years ago with progression. No alleviating factors noted. No alcohol intake, nicotine, blood transfusions, street drugs or tattoos. ROS Gastro GI: Positive for abdominal pain Exam Const General: cooperative and comfortable Nutritional Appearance: average body habitus and well nourished [facility] Head: normal to inspection Ears: hearing grossly normal bilaterally Nose: external nose normal Face and sinus: normal facial exam Mouth: oral mucosae normal Throat: posterior oropharynx normal Eyes General: appearance normal, both eyes and all related structures Neck Neck: normal visual inspection Chest Chest palpation & inspection: normal inspection of the chest and normal palpation of entire chest wall Resp Effort & Inspection: normal respiratory effort Auscultation: Bilateral: Clear to Auscultation Cardio Palpation: normal PMI Rate: regular rate Rhythm: regular rhythm GI Inspection: normal to inspection Auscultation: normal bowel sounds Percussion: normal to percussion Palpation: no hepatosplenomegaly Skin General: no rashes or lesions noted Neuro General: patient alert Extrem General: normal to inspection Psych Affect: normal affect Quality Reporting Tobacco Screening (CMS 138) Smoking Status: Unknown if ever smoked Assessment and Plan Assessment and Plan (1) Abdominal pain: Status: Acute Plan - Dr. Crowley Friend, DO: Differential diagnosis for abdominal pain does include peptic ulcer disease in the setting of a full dose aspirin taken every day. Also her healing abilities due to the fact that she has fatty liver disease is decreased. I will also put in the differential diagnosis gastritis and atypical reflux disease. PPI therapy twice and Carafate therapy twice a day for 8 weeks until she undergoes upper endoscopy. (2) Nausea: Status: Acute Plan - Dr. Crowley Friend, DO: We will give her a short course of scopolamine patch and will bring her here every 72 days. I feel that some of her nausea supratentorial secondary to diabetes mellitus which could also lead to get symptoms. However she does have risk for disease of the upper GI tract. Plan Details Other Medications: New: scopolamine base 1 patch transdermal Q3D PRN 10 ea 0RF nausea and vomiting sucralfate 10 mL PO BID 1,000 mL 0RF pantoprazole 40 mg PO DAILY 60 tabs 1RF I have re-examined the patient. There are no clinical changes since date of exam.
--- NOTE | 2022-01-13 08:35 | IMM_PTH ---
PATIENT: REMI PRIETO LOC: EN U#:[id number] AGE/SX: 61/F ROOM: RE01/13/[address]: Dr. Keo Sarmiento DO : 1960 BED: DIS: 01/13/2022 SPEC #: [id number] RECD: 01/13/22 12:40 STATUS: TYREE REVasyl #: [id number] EMMY: 01/13/22 08:[address]: Keo Sarmiento DEPT: IMMUNOHISTOCHEMISTRY RECD BY: Fallon Merino ENTERED: 01/13/22 12:42 SP TYPE: IMMUNO OTHR DR: Dr. Kale Justice DO Tissues: C - Stomach, NOS Procedures: H Pylori (initial) PHYSICIAN & INSTITUTION [place] [id number] SPECIMEN INFORMATION: Tissue Source: C ? Gastric antrum biopsy Clinical Info: Abdominal pain, nausea Specimen Number: [id number] CPT code: 49907 METHODOLOGY: Deparaffinized sections of prefer/formalin-fixed tissue or PAP/DQ stained slides are incubated with monoclonal/polyclonal antibodies/oligonucleotide probes. Localization is made via biotin free immunoperoxidase method. Appropriate controls are performed and reacted as expected. Results on target cell population are indicated in the following table: RESULTS: ANTIBODY / CLONE RESULT Block C H Pylori (polyclonal) negative These tests were developed and their performance characteristics determined by [facility]. They may not have been cleared or approved by the U.S. Food and Drug Administration. The FDA has determined that such clearance or approval is not necessary. The above immunohistochemical/dualISH markers are ordered and reviewed by the Pathologist. INTERPRETATION: C. Gastric antrum, biopsy: Negative for Helicobacter pylori organisms. SJ:claudine 01/14/2022
--- NOTE | 2022-01-13 09:18 | OP.EGD_ITS ---
Patient Name: Shirlene Carlson Procedure Date: 01/13/2022 8:56 AM Date of : 1960 Age: 61 Procedure: Upper GI endoscopy Indications: Epigastric abdominal pain, Functional Dyspepsia Providers: Keo Sarmiento DO Medicines: Monitored Anesthesia Care Patient Profile: This is a 61 year old female. Refer to note in patient chart for documentation of history and physical. Patient has symptoms of chronic abdominal distention. Complications: No immediate complications. Procedure: Pre-Anesthesia Assessment: - Prior to the procedure, a History and Physical was performed, and patient medications and allergies were reviewed. The risks and benefits of the procedure and the sedation options and risks were discussed with the patient. All questions were answered and informed consent was obtained. Patient identification and proposed procedure were verified by the physician in the pre-procedure area. Mental Status Examination: alert and oriented. Airway Examination: normal oropharyngeal airway and neck mobility. Respiratory Examination: clear to auscultation. CV Examination: normal. Prophylactic Antibiotics: The patient does not require prophylactic antibiotics. Prior Anticoagulants: The patient has taken no previous anticoagulant or antiplatelet agents. ASA Grade Assessment: II - A patient with mild systemic disease. After reviewing the risks and benefits, the patient was deemed in satisfactory condition to undergo the procedure. The anesthesia plan was to use moderate sedation / analgesia (conscious sedation). Immediately prior to administration of medications, the patient was re-assessed for adequacy to receive sedatives. The heart rate, respiratory rate, oxygen saturations, blood pressure, adequacy of pulmonary ventilation, and response to care were monitored throughout the procedure. The physical status of the patient was re-assessed after the procedure. After obtaining informed consent, the endoscope was passed under direct vision. Throughout the procedure, the patient's blood pressure, pulse, and oxygen saturations were monitored continuously. The gastroscope was introduced through the mouth, and advanced to the second part of duodenum. The upper GI endoscopy was accomplished without difficulty. The patient tolerated the procedure well. Scope In: 9:05:20 AM Scope Out: 9:12:32 AM Total Procedure Duration Time 0 hours 7 minutes 12 seconds Findings: LA Grade A (one or more mucosal breaks less than 5 mm, not extending between tops of 2 mucosal folds) esophagitis with no bleeding was found 38 to 40 cm from the incisors. Biopsies were taken with a cold forceps for histology. Verification of patient identification for the specimen was done. Estimated blood loss was minimal. A single area of ectopic gastric mucosa was found in the proximal esophagus, 19 cm from the incisors. Biopsies were taken with a cold forceps for histology. Verification of patient identification for the specimen was done. Estimated blood loss was minimal. Scattered moderate inflammation characterized by shallow ulcerations was found in the gastric body, in the gastric antrum, in the prepyloric region of the stomach and at the pylorus. Biopsies were taken with a cold forceps for histology. Verification of patient identification for the specimen was done. Estimated blood loss was minimal. Localized mild inflammation characterized by congestion (edema) and erosions was found in the duodenal bulb. Biopsies were taken with a cold forceps for histology. Verification of patient identification for the specimen was done. Estimated blood loss was minimal. Impression: - LA Grade A reflux esophagitis. Rule out Sky's esophagus. Biopsied. 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 Biopsied. - Gastritis. Biopsied. - Duodenitis. Biopsied. Recommendation: - Discharge patient to home. - Resume previous diet. - Continue present medications. - Await pathology results. Procedure Code(s): --- Professional --- 16943, Esophagogastroduodenoscopy, flexible, transoral; with biopsy, single or multiple CPT copyright 2017 [employer]. All rights reserved. The codes documented in this report are preliminary and upon certified performance technologist review may be revised to meet current compliance requirements. Keo Sarmiento DO 01/13/2022 9:18:19 AM This report has been signed electronically. Number of Addenda: 1 Note Initiated On: 01/13/2022 8:56 AM Addendum Number: 1 Addendum Date: 05/28/2022 6:19:24 AM MAC was used as sedation for this procedure. Keo Sarmiento DO 05/28/2022 6:19:33 AM This report has been signed electronically.
[2022-01-13 09:19] VITALS: BP 114/66; BP 156/80; PULSE 63; RESP 16; TEMP 36.4; O2SAT 91
--- NOTE | 2022-01-13 09:19 | OP.CCLET_ITS ---
05/28/2022 Kale Justice [id number] [place] [address] Re : Upper GI endoscopy procedure for Shirlene Carlson Dear Dr. Justice This procedure was performed on Thursday, January 13, 2022. My impressions and recommendations are as follows: Impressions : - LA Grade A reflux esophagitis. Rule out Sky's esophagus. Biopsied. 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 Biopsied. - Gastritis. Biopsied. - Duodenitis. Biopsied. Recommendations : - Discharge patient to home. - Resume previous diet. - Continue present medications. - Await pathology results. My findings are described in the full procedure note, which is enclosed. If I can be of further assistance, please feel free to contact me at . Sincerely, Keo Sarmiento, 01/13/2022 9:18:19 AM This report has been signed electronically.
[2022-01-13 09:20] VITALS: BP 115/68; BP 156/80; PULSE 70; RESP 16; O2SAT 94
[2022-01-13 09:25] VITALS: BP 113/72; BP 156/80; PULSE 68; RESP 16; O2SAT 95
[2022-01-13 09:30] VITALS: BP 126/72; BP 156/80; PULSE 64; RESP 16; O2SAT 95
== END 2022-01-13 10:12 | disposition home or self-care (01) ==
LOC: EN 07:13 → AC 07:13
PROVIDERS: PCP Family Medicine; Referring Provider Family Medicine; Visit Provider Internal Medicine Gastroenterology
PROC: 0DJ08ZZ Inspection of Upper Intestinal Tract, Via Natural or Artificial Opening Endoscopic (ICD-10-PCS; CPT 43235; principal; 2022-01-13 08:30)
DX: K22.70 Barrett's esophagus without dysplasia (principal); M06.9 Rheumatoid arthritis, unspecified; K21.00 Gastro-esophageal reflux disease with esophagitis, without bleeding; K29.70 Gastritis, unspecified, without bleeding; K29.80 Duodenitis without bleeding; I10 Essential (primary) hypertension; I44.7 Left bundle-branch block, unspecified; E78.5 Hyperlipidemia, unspecified; Z86.16 Personal history of COVID-19; G43.109 Migraine with aura, not intractable, without status migrainosus; K76.0 Fatty (change of) liver, not elsewhere classified; Z79.899 Other long term (current) drug therapy; F41.9 Anxiety disorder, unspecified; E03.8 Other specified hypothyroidism; G47.30 Sleep apnea, unspecified; E55.9 Vitamin D deficiency, unspecified
CPT/HCPCS: 43239; 88305; 88313; 88342; J7120; J2405

== ENCOUNTER → 2022-02-26 | Outpatient (CLI) | payer OTHER, SELFPAY ==
--- NOTE | 2022-02-26 15:26 | RAD_ITS ---
STUDY: XR Shoulder Min 2 Views REASON FOR EXAM: Female, 62 years old. PAIN IN SHOULDER TECHNIQUE: XR Shoulder Min 2 Views RIGHT COMPARISON: None. FINDINGS: Normal glenohumeral articulation. Normal acromioclavicular joint. Normal acromion. Normal humeral head and visualized proximal humerus. The soft tissue structures are unremarkable. Normal visualized pulmonary apex. RAD/Shoulder min 2 Views IMPRESSION: There are no acute findings of the shoulder. Electronically Signed: Crispin Gooden MD at 17:02 EDT ,
== END | disposition home or self-care (01) ==
LOC: MTRAD 15:25
PROVIDERS: PCP Family Medicine; Referring Provider Family Medicine; Visit Provider Family Medicine
DX: M25.511 Pain in right shoulder (principal)
CPT/HCPCS: 73030

== ENCOUNTER → 2022-05-17 | Outpatient (CLI) | payer OTHER, SELFPAY ==
--- NOTE | 2022-05-17 07:10 | US_ITS ---
STUDY: ABDOMINAL ULTRASOUND - ELASTOGRAPHY REASON FOR VISIT: Female, 62 years old. Fatty infiltration of the liver. TECHNIQUE: Liver stiffness measurements were obtained on a [employer] RS 85 ultrasound machine using a CA 1-7 probe following the SRU guidelines. 3 measurements were obtained using a 2-D-SWE method. The IQR/M was 16% suggesting a quality data set. TECHNICAL QUALITY: Adequate. COMPARISON: Comparison is made with prior study dated 12/09/2021. FINDINGS: Liver: Fatty infiltration of the liver. Median liver stiffness measured 11 kPa. US/Elastography Parenchyma/Organ IMPRESSION: Liver stiffness measures 11 kPa compatible with F2-F3 (Mild to moderate liver fibrosis) Metavir score. Electronically Signed: Ad Castano MD at 8:19 EDT ,
--- NOTE | 2022-05-17 07:10 | US_ITS ---
STUDY: ABDOMINAL ULTRASOUND - RIGHT UPPER QUADRANT REASON FOR VISIT: Female, 62 years old elastography . Fatty infiltration of the liver. TECHNIQUE: Ultrasound evaluation of the right upper quadrant was performed with real-time and static lai-scale imaging. TECHNICAL QUALITY: Adequate. COMPARISON: Comparison is made with prior study 12/09/2021. FINDINGS: Liver: The liver is enlarged and measures 18 cm. There is increased echogenicity consistent with fatty infiltration. The bile ducts are within normal limits. There is hepatic color flow. The direction of portal flow is hepatopetal. There is a stable 1.1 cm x 1.2 cm x 0.9 cm cyst in the right lobe. Gallbladder: Normal distended gallbladder. The gallbladder wall measures 2.0 mm. There is a negative sonographic Romero''s sign. There is no pericholecystic fluid. There are no gallstones. Common Bile Duct (C.B.D.): The common bile duct measures 4.0 mm. Pancreas: Normal size of the head, body and tail of the pancreas. There is normal echogenicity of the pancreas. There is no demonstrated pancreatic mass or cyst. Right Kidney: Normal size of the right kidney. The right kidney measures 12.1 cm x 5.5 cm x 4.6 cm. Normal renal cortex. The right cortex measures 1.4 cm. There is no demonstrated renal mass or cyst. There is no right hydronephrosis. US/Abdomen Limited IMPRESSION: Mild hepatomegaly and fatty infiltration of the liver. Stable cyst in the right lobe of the liver. Electronically Signed: Ad Castano MD at 8:17 EDT ,
== END | disposition home or self-care (01) ==
LOC: US 07:08
PROVIDERS: PCP Family Medicine; Referring Provider Nurse Practitioner Adult Health; Visit Provider Nurse Practitioner Adult Health
DX: K76.0 Fatty (change of) liver, not elsewhere classified (principal)
CPT/HCPCS: 76705; 76981

== ENCOUNTER → 2022-06-04 | Outpatient (CLI) | payer OTHER, SELFPAY ==
--- NOTE | 2022-06-04 07:46 | US_ITS ---
STUDY: ABDOMINAL ULTRASOUND - ELASTOGRAPHY REASON FOR VISIT: Female, 62 years old. Fatty infiltration of liver. TECHNIQUE: Liver stiffness measurements were obtained on a [employer] RS 85 ultrasound machine using a CA 1-7 probe following the SRU guidelines. 3 measurements were obtained using a 2-D-SWE method. The IQR/M was 18% suggesting a quality data set. TECHNICAL QUALITY: Adequate. COMPARISON: Comparison is made with prior study dated 05/17/2022. FINDINGS: Liver: Fatty infiltration of the liver. Median liver stiffness measured 10 kPa. US/Elastography Parenchyma/Organ IMPRESSION: Liver stiffness measures 10 kPa compatible with F2-F3 (Mild to moderate liver fibrosis) Metavir score. Electronically Signed: Ad Castano MD at 8:36 EDT ,
== END | disposition home or self-care (01) ==
LOC: US 07:43
PROVIDERS: PCP Family Medicine; Visit Provider Nurse Practitioner Adult Health
DX: K76.0 Fatty (change of) liver, not elsewhere classified (principal)
CPT/HCPCS: 76981

== ENCOUNTER → 2022-06-12 | Outpatient (CLI) | payer OTHER, SELFPAY ==
[2022-06-12 10:44] LABS: Absolute Lymphocyte Count 1.91 X10^3/uL (0.83-4.51); Absolute Neutrophil Count 2.9 X10^3/uL (2.0-7.7); Basophil# 0.02 X10^3/uL; Basophil% 0.4 % (0-1); Eosinophil# 0.09 X10^3/uL; Eosinophils% 1.7 % (0-5); Hematocrit 39.9 % (37-47); Hemoglobin 13.2 g/dL (12.0-15.0); Lymphocyte # 1.91 X10^3/ul (0.83-4.51); Lymphocyte % 36.3 % (19-41); Mean Corp Hgb Conc 33.1 g/dL (32-36); Mean Corpuscular Hgb 29.8 pg (27.0-32.0); Mean Corpuscular Volume 90.1 fL (81-99); Mean Platelet Vol. 10.3 fl (6.2-12.0); Monocyte# 0.34 X10^3/uL; Monocyte% 6.5 % (0-10); NRBC Flagged by Analyzer 0 % (0-5); Neutrophil # 2.89 X10^3/uL (2.7-7.7); Neutrophil % 54.9 % (47-70); Platelet Count 270 K/mm3 (150-450); RBC Distribution Width CV 12.4 % (11.6-14.6); RBC Distribution Width SD 40.8 fl (35.1-43.9); Red Blood Count 4.43 M/mm3 (4.2-5.4); White Blood Count 5.3 K/mm3 (4.4-11.0)
[2022-06-12 10:49] LABS: Prothrombin Time (Protime)PT. 12.5 SECONDS (11.7-14.9)
[2022-06-12 10:58] LABS: ALB/GLOB Ratio 1.2 RATIO (0.9-2.4); AST(SGOT) 16 U/L (15-37); Alanine Aminotransfer ALT/SGPT 25 U/L (13-56); Albumin, Serum 3.8 g/dL (3.2-5.0); Alkaline Phosphatase 81 U/L (45-117); Anion Gap 7 (5-15); BUN 14 mg/dL (7-18); Calcium,Total 8.9 mg/dL (8.5-10.1); Chloride 106 mmol/L (98-107); Cholesterol 169 mg/dL (200); Creatinine, Serum 0.64 mg/dL (0.55-1.02); EST Glomerular Filtration Rate 100 mL/min (>60); Est Glom Filt Rate - Afr Amer 121 mL/min (>60); Globulin 3.3 g/dL (2.2-4.2); Glucose 92 mg/dL (74-106); High Density Lipoprotein 51 mg/dL; Protein, Total 7.1 g/dL (6.4-8.2); Sodium Level 142 mmol/L (136-145); Triglycerides 145 mg/dL; Very Low Density Lipoprotein 29 mg/dL (5-40)
[2022-06-12 13:34] LABS: Hemoglobin A1c 5.9 % (3.8-5.6)
== END | disposition home or self-care (01) ==
LOC: LAB 09:33
PROVIDERS: PCP Family Medicine; Referring Provider Nurse Practitioner Adult Health; Visit Provider Nurse Practitioner Adult Health
DX: K76.0 Fatty (change of) liver, not elsewhere classified (principal); E78.5 Hyperlipidemia, unspecified
CPT/HCPCS: 36415; 80053; 80061; 83036; 85025; 85610

== ENCOUNTER → 2022-08-05 | Outpatient (CLI) | payer OTHER, SELFPAY ==
--- NOTE | 2022-08-05 08:22 | RAD_ITS ---
HISTORY: LOW BACK PAIN. TECHNIQUE: XR Spine Lumbar Min 4 Views. COMPARISON: None. FINDINGS: VERTEBRAE: Vertebral body heights preserved. Posterior elements appear intact. ALIGNMENT: No significant anterior or posterior subluxation. Mild levocurvature. INTERVERTEBRAL DISCS: Mild degenerative endplate change with intervertebral disc space narrowing from L2-3 through L5/S1. RAD/L/S Spine Min 4 Views IMPRESSION: No acute fracture or dislocation identified in the lumbar spine. Mild degenerative change. Electronically Signed: Cheryle Cohen MD at 12:24 EST ,
--- NOTE | 2022-08-05 08:23 | RAD_ITS ---
STUDY: X-RAY - CERVICAL SPINE REASON FOR EXAM: Female, 62 years old. NECK PAIN TECHNIQUE: 5 view(s) of the cervical spine were obtained including oblique views. COMPARISON: Comparison is made with prior study dated 09/15/2015. FINDINGS: Normal anterior atlantoaxial articulation. Normal odontoid process. There is straightening of the normal cervical lordosis. There is endplate spondylosis. There is multi-level degenerative disc disease with multilevel disc space narrowing. Normal visualized intervertebral neuroforamina. The soft tissue structures are unremarkable. RAD/Cerv Spine 4 or 5 Views IMPRESSION: Loss of the normal cervical lordosis. This space narrowing and mild spondylosis at the C4-C5, C5-C6 and C6-C7 levels. Electronically Signed: Ad Castano MD at 10:35 EST ,
--- NOTE | 2022-08-05 08:23 | RAD_ITS ---
STUDY: X-RAY - PELVIS AND RIGHT HIP REASON FOR EXAM: Female, 62 years old. HIP TECHNIQUE: 3 views of the pelvis and hip. COMPARISON: None. FINDINGS: There is a non-specific bowel gas pattern. There are multiple calcified phleboliths. Normal bilateral iliac wings, sacroiliac joints and visualized sacrum. Normal bilateral superior and inferior pubic rami. There is narrowing with sclerosis of the pubic symphysis. Normal bilateral ischial tuberosities. Normal visualized femoral head. Normal acetabulum. There is mild articular joint space narrowing of the hip. RAD/HIP, UNI W/ Pelvis 2-3 Views IMPRESSION: Mild degree of joint space narrowing of the hip joints. Electronically Signed: Ad Castano MD at 10:56 EST ,
== END | disposition home or self-care (01) ==
LOC: RAD 08:17
PROVIDERS: PCP Family Medicine; Referring Provider Family Medicine; Visit Provider Family Medicine
DX: M54.2 Cervicalgia (principal); M54.50 Low back pain, unspecified; M25.551 Pain in right hip
CPT/HCPCS: 72050; 72110; 73502

== ENCOUNTER → 2022-12-15 | Outpatient (CLI) | payer OTHER, SELFPAY ==
[2022-12-15 08:28] LABS: Absolute Lymphocyte Count 1.82 X10^3/uL (0.83-4.51); Absolute Neutrophil Count 3.8 X10^3/uL (2.0-7.7); Basophil# 0.03 X10^3/uL; Basophil% 0.5 % (0-1); Eosinophil# 0.15 X10^3/uL; Eosinophils% 2.4 % (0-5); Hematocrit 42.5 % (37-47); Lymphocyte # 1.82 X10^3/ul (0.83-4.51); Lymphocyte % 29.3 % (19-41); Mean Corp Hgb Conc 32.9 g/dL (32-36); Mean Corpuscular Hgb 29.2 pg (27.0-32.0); Mean Corpuscular Volume 88.7 fL (81-99); Mean Platelet Vol. 10.1 fl (6.2-12.0); Monocyte# 0.39 X10^3/uL; Monocyte% 6.3 % (0-10); NRBC Flagged by Analyzer 0 % (0-5); Neutrophil # 3.81 X10^3/uL (2.7-7.7); Neutrophil % 61.3 % (47-70); Platelet Count 275 K/mm3 (150-450); RBC Distribution Width CV 13.2 % (11.6-14.6); RBC Distribution Width SD 43.1 fl (35.1-43.9); Red Blood Count 4.79 M/mm3 (4.2-5.4); White Blood Count 6.2 K/mm3 (4.4-11.0)
[2022-12-15 08:55] LABS: ALB/GLOB Ratio 1.2 RATIO (0.9-2.4); AST(SGOT) 10 U/L (15-37); Alanine Aminotransfer ALT/SGPT 18 U/L (13-56); Albumin, Serum 3.9 g/dL (3.2-5.0); Alkaline Phosphatase 70 U/L (45-117); Anion Gap 5 (5-15); BUN 24 mg/dL (7-18); BUN/Creat Ratio 37.9 RATIO (10-20); Calcium,Total 8.6 mg/dL (8.5-10.1); Chloride 106 mmol/L (98-107); Cholesterol 270 mg/dL (200); Creatinine, Serum 0.63 mg/dL (0.55-1.02); EST Glomerular Filtration Rate 100 mL/min (>60); Est Glom Filt Rate - Afr Amer 122 mL/min (>60); Globulin 3.2 g/dL (2.2-4.2); Glucose 100 mg/dL (74-106); High Density Lipoprotein 48 mg/dL; Protein, Total 7.1 g/dL (6.4-8.2); Sodium Level 138 mmol/L (136-145); Triglycerides 180 mg/dL; Very Low Density Lipoprotein 36 mg/dL (5-40)
[2022-12-15 09:00] LABS: Hemoglobin A1c 5.6 % (3.8-5.6)
== END | disposition home or self-care (01) ==
LOC: LAB 07:46
PROVIDERS: PCP Family Medicine; Referring Provider Family Medicine; Visit Provider Family Medicine
DX: Z00.00 Encounter for general adult medical examination without abnormal findings (principal); E78.00 Pure hypercholesterolemia, unspecified; K76.0 Fatty (change of) liver, not elsewhere classified
CPT/HCPCS: 36415; 80053; 80061; 83036; 85025

== ENCOUNTER → 2022-12-28 | Outpatient (CLI) | payer OTHER, SELFPAY ==
--- NOTE | 2022-12-28 07:39 | US_ITS ---
STUDY: ABDOMINAL ULTRASOUND - ELASTOGRAPHY REASON FOR VISIT: Female, 62 years old. Fatty infiltration of the liver. TECHNIQUE: Liver stiffness measurements were obtained on a [employer] RS 85 ultrasound machine using a CA 1-7 probe following the SRU guidelines. 3 measurements were obtained using a 2-D-SWE method. TheIQR/M was 20 % suggesting a quality data set. TECHNICAL QUALITY: Adequate. COMPARISON: Comparison is made with prior examination dated June 04, 2022. FINDINGS: Liver: Fatty infiltration of the liver. Median liver stiffness measured 6.6 kPa. Abdomen: There is no demonstrated mass lesion. US/ABD Limited w/ Elastography IMPRESSION: Liver stiffness measures 6.6 kPa compatible with F2-F3 (Mild to moderate liver fibrosis) Metavir score. Electronically Signed: Ad Castano MD at 15:23 EDT ,
== END | disposition home or self-care (01) ==
PROVIDERS: PCP Family Medicine; Referring Provider Nurse Practitioner Adult Health; Visit Provider Nurse Practitioner Adult Health
DX: K76.0 Fatty (change of) liver, not elsewhere classified (principal)
CPT/HCPCS: 76705; 76981

== ENCOUNTER → 2023-04-30 | Outpatient (CLI) | payer OTHER, SELFPAY ==
[2023-04-30 11:36] LABS: Ferritin 25 ng/mL (8-252); Iron 125 ug/dL (50-170); T4 Free Direct 1.06 ng/dL (0.76-1.46); Thyroid Stim Hormone (TSH) 0.94 uIU/mL (0.358-3.74)
[2023-05-01 08:08] LABS: DHEA Sulfate 76.7 ug/dL (29.4-220.5)
[2023-05-03 14:53] LABS: Syphilis Antibodies Non-reactive
== END | disposition home or self-care (01) ==
LOC: LAB 09:59
PROVIDERS: PCP Family Medicine; Referring Provider Family Medicine; Visit Provider Family Medicine
DX: E03.8 Other specified hypothyroidism (principal); E61.1 Iron deficiency; L65.9 Nonscarring hair loss, unspecified
CPT/HCPCS: 36415; 82627; 82728; 83540; 84439; 84443; 86780; 82626

== ENCOUNTER → 2023-05-10 | Outpatient (CLI) | payer OTHER, SELFPAY ==
[2023-05-10 09:23] LABS: Absolute Lymphocyte Count 1.62 X10^3/uL (0.83-4.51); Basophil# 0.04 X10^3/uL; Basophil% 0.8 % (0-1); Eosinophil# 0.08 X10^3/uL; Eosinophils% 1.6 % (0-5); Hematocrit 43.4 % (37-47); Hemoglobin 13.8 g/dL (12.0-15.0); Lymphocyte # 1.62 X10^3/ul (0.83-4.51); Lymphocyte % 31.6 % (19-41); Mean Corp Hgb Conc 31.8 g/dL (32-36); Mean Corpuscular Hgb 29.9 pg (27.0-32.0); Mean Corpuscular Volume 93.9 fL (81-99); Mean Platelet Vol. 10.2 fl (6.2-12.0); Monocyte# 0.32 X10^3/uL; Monocyte% 6.3 % (0-10); NRBC Flagged by Analyzer 0 % (0-5); Neutrophil # 3.04 X10^3/uL (2.7-7.7); Neutrophil % 59.3 % (47-70); Platelet Count 250 K/mm3 (150-450); RBC Distribution Width CV 12.3 % (11.6-14.6); RBC Distribution Width SD 42.9 fl (35.1-43.9); Red Blood Count 4.62 M/mm3 (4.2-5.4); White Blood Count 5.1 K/mm3 (4.4-11.0)
[2023-05-10 09:54] LABS: ALB/GLOB Ratio 1.3 RATIO (0.9-2.4); AST(SGOT) 17 U/L (15-37); Alanine Aminotransfer ALT/SGPT 17 U/L (13-56); Albumin, Serum 4.1 g/dL (3.2-5.0); Alkaline Phosphatase 60 U/L (45-117); Anion Gap 4 (5-15); BUN 16 mg/dL (7-18); BUN/Creat Ratio 23.3 RATIO (10-20); Calcium,Total 8.9 mg/dL (8.5-10.1); Chloride 108 mmol/L (98-107); Creatinine, Serum 0.69 mg/dL (0.55-1.02); EST Glomerular Filtration Rate 92 mL/min (>60); Est Glom Filt Rate - Afr Amer 111 mL/min (>60); Globulin 3.2 g/dL (2.2-4.2); Glucose 97 mg/dL (74-106); Potassium 4.3 mmol/L (3.5-5.1); Protein, Total 7.3 g/dL (6.4-8.2); Sodium Level 141 mmol/L (136-145)
[2023-05-13 06:09] LABS: Beef <0.10 kU/L (Class 0); Chocolate <0.10 kU/L (Class 0); Corn <0.10 kU/L (Class 0); Egg, Whole 0.45 kU/L (Class I); Peanut <0.10 kU/L (Class 0); Pork <0.10 kU/L (Class 0); Soybean <0.10 kU/L (Class 0)
== END | disposition home or self-care (01) ==
LOC: LAB 09:04
PROVIDERS: PCP Family Medicine; Referring Provider Internal Medicine Gastroenterology; Visit Provider Internal Medicine Gastroenterology
DX: R13.10 Dysphagia, unspecified (principal)
CPT/HCPCS: 36415; 80053; 85025; 86003; 86005

== ENCOUNTER → 2023-05-25 | Outpatient (CLI) | payer OTHER, SELFPAY ==
--- NOTE | 2023-05-25 07:40 | NM_ITS ---
CLINICAL: Dysphagia with nausea GASTRIC EMPTYING-SULFUR COLLOID TECHNIQUE: The patient was orally administered 1.2 mCi of Tc-sulfur colloid in oatmeal. Gamma camera imaging acquisitions at 1-60 minutes post radiopharmaceutical administration was performed. COMPARISON STUDIES : NM - None. CR - Not available for review at this time. CT - Not available for review at this time. MR - Not available for review at this time. FINDINGS: There is normal filling and emptying of the stomach. No gastroesophageal reflux with normal passage into the small bowel. T 1/2 measures 41 minutes, within normal limits. NM/Gastric Emptying Study IMPRESSION: Normal gastric emptying nuclear medicine scan. Electronically Signed: Humberto London MD ([place]) at 15:19 EDT Reading Location ID and State: [id number] , Service support ,
== END | disposition home or self-care (01) ==
PROVIDERS: PCP Family Medicine; Referring Provider Internal Medicine Gastroenterology; Visit Provider Internal Medicine Gastroenterology
DX: R13.10 Dysphagia, unspecified (principal)
CPT/HCPCS: 78264; A9541

== ENCOUNTER 2023-06-02 10:24 | Day surgery (SDC) | payer OTHER, SELFPAY ==
[2023-06-02] VITALS (7 sets, daily range): BP systolic 120–168; BP diastolic 65–98; PULSE 60–71; RESP 16–18; TEMP 36.8–36.9; O2SAT 97–99; BMI 25.0
--- NOTE | 2023-06-02 | GASB_PTH ---
PATIENT: REMI PRIETO LOC: EN U#:[id number] AGE/SX: 63/F ROOM: RE06/02/[address]: Dr. Keo Sarmiento DO : 1960 BED: DIS: 06/02/2023 SPEC #: [id number] RECD: 06/02/23 14:15 STATUS: TYREE DEBBIE #: [id number] EMMY: 06/02/23 00:[address]: Keo Sarmiento DEPT: SURGICAL PATHOLOGY RECD BY: Rafael Smart ENTERED: 06/02/23 14:16 SP TYPE: Gastric Bx OTHR DR: Dr. Kale Justice DO Tissues: A - Duodenum, NOS B - Gastric mucous membrane C - Esophageal mucous membrane D - Esophageal mucous membrane Procedures: Special Stain Group II Surgery Specimen Level IV Alcian Blue/PAS (control) HEADER OPERATION: EGD, biopsy PRE-OP DIAGNOSIS: Nonalcoholic fatty liver disease, metabolic syndrome, Sky's esophagus, dysphagia, abdominal pain, nausea TISSUE SUBMITTED: A - Duodenum biopsy, B - Gastric antrum biopsy for histo and H. pylori, C - Distal esophagus biopsy, D - Proximal esophagus biopsy MICROSCOPIC DIAGNOSIS A. Duodenum, biopsy: No significant pathologic change. B. Gastric antrum, biopsy: Chronic gastritis. Focal intestinal metaplasia. No evidence of dysplasia. See comment. C. Distal esophagus, biopsy: Gastroesophageal junctional mucosa with mild chronic inflammation. No evidence of intestinal metaplasia. See comment. D. Proximal esophagus, biopsy: Gastroesophageal junctional mucosa with mild chronic inflammation. AM:claudine 06/03/2023 COMMENT B. The results of immunohistochemistry for Helicobacter pylori will be reported separately ([id number]). Immunohistochemistry ([id number]) for P53 and Ki-67 will be performed and results will be reported separately. Alcian blue/PAS stain with matched control supports the above diagnosis. C. Alcian blue/PAS stain with matched control supports the above diagnosis. MICROSCOPIC DESCRIPTION Slides are reviewed. GROSS DESCRIPTION A - Received in fixative is one container labeled with the patient's name and designated duodenum biopsy. The specimen consists of multiple irregular fragments of light medrano soft tissue that in aggregate measure 1.0 x 0.3 x 0.1 cm. The specimen is totally submitted in one cassette. B - Received in fixative is one container labeled with the patient's name and designated gastric antrum biopsy. The specimen consists of multiple irregular fragments of light medrano soft tissue that in aggregate measure 1.0 x 0.3 x 0.1 cm. The specimen is totally submitted in one cassette. C - Received in fixative is one container labeled with the patient's name and designated distal esophagus biopsy. The specimen consists of two irregular fragments of light medrano soft tissue that in aggregate measure 0.5 x 0.3 x 0.1 cm. The specimen is totally submitted in one cassette. D - Received in fixative is one container labeled with the patient's name and designated proximal esophagus biopsy. The specimen consists of multiple irregular fragments of light medrano soft tissue that in aggregate measure 0.8 x 0.2 x 0.1 cm. The specimen is totally submitted in one cassette. / SJ:rg 06/02/2023 TC:3 CPT: 87764 x4, 59511 x2
[2023-06-02] MEDS: Lactated Ringers 1,000 ML 15 ML IV (11:24)
--- NOTE | 2023-06-02 11:58 | HP.PCM_ITS ---
History and Physical Date of Admission: 06/02/23 3 F who presents to the office today for Prior workup: ? US 08.10.12 hepatic measurement 15.4cm, fatty infiltration, hepatic cyst [id number] ? Barium swallow 05.14.20 *BGI established 3.22 reports regular nausea with itching sensation in her throat and gagging for two months without change; no food trigger identified. Zofran and [place] helpful with nausea. Postprandial LUQ abdominal discomfort/pain with bloating following ingestion of certain food for two years. Start PPI, sucralfate and scopolamine patch. ? US and elastography 12.09.21 hepatic measurement 19.8cm with fatty infiltration, 1x1.5x0.9cm hepatic cyst, stiffness 6kPa. Biochemical 12.09.21 CBC, ESR, haptoglobin, CMP, LFT, LDH, CRP, JESUS, A1c, AFP, ferritin, ceruloplasmin, coag, ADALI comp, ANCA, GAME, LISA, AMA, ASM, hepatitis, HIV without pertinent abnormality. A1c H5.9, CRP H6.95, triglycerides H212, cholesterol H264? Fib4 0.81 ? EGD 01.13.22 LA Grade A esophagitis; ectopic gastric mucosa of proximal esophagus; gastritis; duodenitis, Jo gland hyperplasia. Metaplasia not found. H.Pylori WNL Referred 01.19.22 for ablation which was performed 03.02.22. Reports the procedure went well. OV 8 Continue ursodiol/Vit E NAFLD. Continue PPI ? US and elastography 05.17.22 hepatic measurement 18cm with fatty infiltration, 1.1x1.2x0.9cm cyst, stiffness 11kPa ? Elastography 06.04.22 hepatic stiffness 10kPa OV 10 with metabolic syndrome with possible recommendation for GLP-1 ? Biochemical 06.12.22 CBC, CMP, A1c, lipids, coag without pertinent abnormality ? A1c H5.9? FIB4 0.76 OV 08.05.22 Continue Mounjaro, increase to 5mg weekly for metabolic syndrome. Continue Vit E and ursodiol. ? Biochemical 12.15.22 (PCP) A1c, triglycerides WNL ? Cholesterol H270? FIB 4 0.55 ? US and elastography 12.28.22 stiffness 6.6kPa? US read requested 04.19.23/05.10.23 OV 01.03.23 doing well. Continue Mounjaro, has resumed atorvastatin, consider addition of COQ10 OV 05.10.23 feels she is having intermittent difficulty with swallowing with cough and gagging. Continues to have nausea with most PO intake. Has lost 28lbs intentionally. Mounjaro was stopped approximately six weeks ago r/t cost. Exam Const General: cooperative, comfortable and no acute distress Orientation: alert, awake and oriented x3 Eyes Sclera: sclerae normal Resp Effort & Inspection: normal respiratory effort GI Inspection: normal to inspection Quality Reporting Tobacco Screening ([facility] 138) Smoking Status: Never smoker Assessment and Plan Assessment and Plan (1) NAFLD (nonalcoholic fatty liver disease): Status: Chronic Plan: Good improvement of liver stiffness with weight loss She will continue ursodiol and vitamin E for the time being, repeat elastography in 6 months (2) Metabolic syndrome: Status: Chronic Plan: Continue Mounjaro 5 mg subcu weekly She has resumed atorvastatin, consider taking with co-Q10 (3) Barretts esophagus: Status: Chronic (4) Dysphagia: Status: Chronic (5) Abdominal pain: Status: Resolved Plan: Differential diagnosis for abdominal pain does include peptic ulcer disease in the setting of a full dose aspirin taken every day. Also her healing abilities due to the fact that she has fatty liver disease is decreased. I will also put in the differential diagnosis gastritis and atypical reflux disease. PPI therapy twice and Carafate therapy twice a day for 8 weeks until she undergoes upper endoscopy. (6) Nausea: Status: Resolved Plan: We will give her a short course of scopolamine patch and will bring her here every 72 days. I feel that some of her nausea supratentorial secondary to diabetes mellitus which could also lead to get symptoms. However she does have risk for disease of the upper GI tract. Orders: Orders Allergen, Rast Food Profile Today R13.10 - Dysphagia, unspecified Comprehensive Metabolic Profil Today R13.10 - Dysphagia, unspecified CBC W/Diff, Automated Today R13.10 - Dysphagia, unspecified ABD Limited w/ Elastography 06/29/23 R13.10 - Dysphagia, unspecified Gastric Emptying Study Today R13.10 - Dysphagia, unspecified Medications: New prochlorperazine maleate 10 mg PO Q8H PRN 30 tabs 3RF nausea and vomiting I have examined the patient and the H&P has been reviewed. There are no clinical changes since date of exam.
--- NOTE | 2023-06-02 12:00 | IMM_PTH ---
PATIENT: REMI PRIETO LOC: EN U#:[id number] AGE/SX: 63/F ROOM: RE06/02/[address]: Dr. Keo Sarmiento DO : 1960 BED: DIS: 06/02/2023 SPEC #: [id number] RECD: 06/02/23 15:34 STATUS: TYREE REQ #: [id number] EMMY: 06/02/23 12:[address]: Keo Sarmiento DEPT: IMMUNOHISTOCHEMISTRY RECD BY: Fallon Merino ENTERED: 06/02/23 15:35 SP TYPE: IMMUNO OTHR DR: Dr. Kale Justice DO Tissues: B - Stomach, NOS Procedures: H Pylori (initial) KI-67 (add) P53 (add) MOC-31 (add) PHYSICIAN & INSTITUTION [place] [id number] SPECIMEN INFORMATION: Tissue Source: B - Gastric antrum Clinical Info: NAFLD, metabolic syndrome, dysphagia, abdominal pain, nausea Specimen Number: [id number] CPT code: 48976, 19903 x3 METHODOLOGY: Deparaffinized sections of prefer/formalin-fixed tissue or PAP/DQ stained slides are incubated with monoclonal/polyclonal antibodies/oligonucleotide probes. Localization is made via biotin free immunoperoxidase method. Appropriate controls are performed and reacted as expected. Results on target cell population are indicated in the following table: RESULTS: ANTIBODY / CLONE RESULT Block B H Pylori (polyclonal) negative P53 (DO-7) positive, wild type pattern Ki-67 (30-9) positive MOC-31 (4561) positive These tests were developed and their performance characteristics determined by [facility]. They may not have been cleared or approved by the [place].S. Food and Drug Administration. The FDA has determined that such clearance or approval is not necessary. The above immunohistochemical/dualISH markers are ordered and reviewed by the Pathologist. INTERPRETATION: B. Gastric antrum, biopsy: Negative for Helicobacter pylori organisms. No evidence of dysplasia. AM:claudine 06/06/2023
--- NOTE | 2023-06-02 12:20 | OP.EGD_ITS ---
Patient Name: Shirlene Carlson Procedure Date: 06/02/2023 11:57 AM Date of : 1960 Age: 63 Procedure: Upper GI endoscopy Indications: Epigastric abdominal pain, Dysphagia Providers: Keo Sarmiento DO Referring MD: Keo Sarmiento DO Medicines: Monitored Anesthesia Care Patient Profile: This is a 63 year old female. Refer to note in patient chart for documentation of history and physical. Patient has symptoms of chronic epigastric abdominal pain, acute dysphagia and acute dyspepsia. Complications: No immediate complications. Procedure: Pre-Anesthesia Assessment: - Prior to the procedure, a History and Physical was performed, and patient medications and allergies were reviewed. The patient is competent. The risks and benefits of the procedure and the sedation options and risks were discussed with the patient. All questions were answered and informed consent was obtained. Patient identification and proposed procedure were verified by the physician in the pre-procedure area. Mental Status Examination: alert and oriented. Airway Examination: normal oropharyngeal airway and neck mobility. Respiratory Examination: clear to auscultation. CV Examination: normal. Prophylactic Antibiotics: The patient does not require prophylactic antibiotics. Prior Anticoagulants: The patient has taken no anticoagulant or antiplatelet agents. After reviewing the risks and benefits, the patient was deemed in satisfactory condition to undergo the procedure. The anesthesia plan was to use monitored anesthesia care (MAC). Immediately prior to administration of medications, the patient was re-assessed for adequacy to receive sedatives. The heart rate, respiratory rate, oxygen saturations, blood pressure, adequacy of pulmonary ventilation, and response to care were monitored throughout the procedure. The physical status of the patient was re-assessed after the procedure. After obtaining informed consent, the endoscope was passed under direct vision. Throughout the procedure, the patient's blood pressure, pulse, and oxygen saturations were monitored continuously. The Endoscope was introduced through the mouth, and advanced to the second part of duodenum. The upper GI endoscopy was accomplished without difficulty. The patient tolerated the procedure well. Scope In: 12:06:25 PM Scope Out: 12:11:31 PM Total Procedure Duration Time 0 hours 5 minutes 6 seconds Findings: A single area of ectopic gastric mucosa was found in the proximal esophagus, 21 cm from the incisors. Biopsies were taken with a cold forceps for histology. Verification of patient identification for the specimen was done. Estimated blood loss was minimal. A mild Schatzki ring was found in the lower third of the esophagus. A guidewire was placed and the scope was withdrawn. Dilation was performed with a Savary dilator with no resistance at 42 Fr. The dilation site was examined and showed mild improvement in luminal narrowing. The Z-line was irregular and was found 39 cm from the incisors. Biopsies were taken with a cold forceps for histology. Verification of patient identification for the specimen was done. Estimated blood loss was minimal. Patchy mild inflammation characterized by erosions and erythema was found in the gastric body and in the gastric antrum. Biopsies were taken with a cold forceps for histology. Verification of patient identification for the specimen was done. Biopsies were taken with a cold forceps for Helicobacter pylori testing. Verification of patient identification for the specimen was done. Patchy mild inflammation characterized by congestion (edema), erosions and erythema was found in the duodenal bulb and in the first portion of the duodenum. Biopsies were taken with a cold forceps for histology. Verification of patient identification for the specimen was done. Estimated blood loss was minimal. 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 Biopsied. - Mild Schatzki ring. Dilated. - Z-line irregular, 39 cm from the incisors. Biopsied. - Chronic gastritis. Biopsied. - Duodenitis. Biopsied. Recommendation: - Discharge patient to home. - Resume previous diet. - No aspirin, ibuprofen, naproxen, or other non-steroidal anti-inflammatory drugs for 4 weeks. Procedure Code(s): --- Professional --- 16435, Esophagogastroduodenoscopy, flexible, transoral; with insertion of guide wire followed by passage of dilator(s) through esophagus over guide wire 36466, 59,51, Esophagogastroduodenoscopy, flexible, transoral; with biopsy, single or multiple CPT copyright 2021 [employer]. All rights reserved. The codes documented in this report are preliminary and upon hospital coder review may be revised to meet current compliance requirements. Keo Sarmiento DO 06/02/2023 12:20:17 PM This report has been signed electronically. Number of Addenda: 0 Note Initiated On: 06/02/2023 11:57 AM
--- NOTE | 2023-06-02 12:20 | OP.CCLET_ITS ---
06/02/2023 Kale Justice [address] [facility] [place] [address] Re : Upper GI endoscopy procedure for Shirlene Carlson Dear Dr. Justice This procedure was performed on May. 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 Biopsied. - Mild Schatzki ring. Dilated. - Z-line irregular, 39 cm from the incisors. Biopsied. - Chronic gastritis. Biopsied. - Duodenitis. Biopsied. Recommendations : - Discharge patient to home. - Resume previous diet. - No aspirin, ibuprofen, naproxen, or other non-steroidal anti-inflammatory drugs for 4 weeks. My findings are described in the full procedure note, which is enclosed. If I can be of further assistance, please feel free to contact me at . Sincerely, Keo Friend, 06/02/2023 12:20:17 PM This report has been signed electronically.
== END 2023-06-02 13:07 | disposition home or self-care (01) ==
LOC: EN 10:25 → AC 10:53
PROVIDERS: PCP Family Medicine; Referring Provider Family Medicine; Visit Provider Internal Medicine Gastroenterology
PROC: 0DJ08ZZ Inspection of Upper Intestinal Tract, Via Natural or Artificial Opening Endoscopic (ICD-10-PCS; CPT 43235; principal; 2023-06-02 11:55)
DX: R13.10 Dysphagia, unspecified (principal); K76.0 Fatty (change of) liver, not elsewhere classified; K29.50 Unspecified chronic gastritis without bleeding; K29.80 Duodenitis without bleeding; E88.810 Metabolic syndrome; R11.0 Nausea; K31.A19 Gastric intestinal metaplasia without dysplasia, unspecified site; K22.89 Other specified disease of esophagus; K22.2 Esophageal obstruction; Q39.8 Other congenital malformations of esophagus; Z79.899 Other long term (current) drug therapy
CPT/HCPCS: 43239; 43248; 81002; 88305; 88313; 88341; 88342; J7120; J2405

== ENCOUNTER → 2023-07-29 | Outpatient (CLI) | payer OTHER, SELFPAY ==
--- NOTE | 2023-07-29 14:06 | RAD_ITS ---
INDICATION: PAIN EXAMINATION/TECHNIQUE: X-RAY - RIGHT XR Tibia/Fibula 2 Views 2 VIEWS COMPARISON: None. FINDINGS: SOFT TISSUES: No soft tissue swelling or gas. No radiopaque foreign body. BONES/JOINTS: No acute fracture. Hardware from prior ORIF distal fibula. Joint spaces anatomically aligned. Degenerative osteophytes at the anterior tibiotalar joint space. No sclerotic or destructive changes observed. RAD/Tibia & Fibula 2 Views IMPRESSION: Degenerative changes at the right ankle anteriorly. No acute bony abnormality. Electronically Signed: Singh Barreto MD at 19:51 EST ,
--- NOTE | 2023-07-29 14:06 | RAD_ITS ---
STUDY: X-RAY - LEFT TIBIA AND FIBULA REASON FOR EXAM: Female, 63 years old. PAIN TECHNIQUE: 2 view(s) of the tibia and fibula were obtained. COMPARISON: None. FINDINGS: Normal visualized tibia. There is a well-corticated fragment distal to the fibula which could represent prior injury. The soft tissue structures are unremarkable. There is enthesopathy at the quadriceps insertion. The visualized plantar and Achilles spur. There is no visualized acute fracture. There is minimal degenerative changes in the visualized knee joint. There is a suggestion of possible prior injury of the lateral malleolus with a well-circumscribed focus distal to the fibula. RAD/Tibia & Fibula 2 Views IMPRESSION: No visualized acute fracture. Possible old injury of the distal fibula. Plantar and Achilles spur. Electronically Signed: Yamilka Milner MD at 5:55 EST ,
== END | disposition home or self-care (01) ==
LOC: MTRAD 14:04
PROVIDERS: PCP Family Medicine; Referring Provider Family Medicine; Visit Provider Family Medicine
DX: M79.604 Pain in right leg (principal); M79.605 Pain in left leg
CPT/HCPCS: 73590

== ENCOUNTER → 2023-08-10 | Outpatient (CLI) | payer OTHER, SELFPAY ==
--- NOTE | 2023-08-10 08:03 | US_ITS ---
STUDY: ABDOMINAL ULTRASOUND - RIGHT UPPER QUADRANT; ELASTOGRAPHY REASON FOR VISIT: Female, 63 years old. NAFLD. TECHNIQUE: Ultrasound evaluation of the right upper quadrant was performed with real-time and static lai-scale imaging. Point quantification shear wave elastography was performed ([employer]). TECHNICAL QUALITY: Adequate. COMPARISON: Comparison is made with prior study dated December 28, 2022. FINDINGS: Liver: The liver measures 15.9 cm. There is increased echogenicity consistent with fatty infiltration. The bile ducts are within normal limits. There is hepatic color flow. The direction of portal flow is hepatopetal. Metastases again, 2 cysts are seen in the right lobe of the liver. The largest cyst measures 1.2 cm x 1.5 cm x 0.9 cm. Median liver stiffness measured 11.06 kPa. Gallbladder: Normal distended gallbladder. The gallbladder wall measures 1.4 mm. There is a negative sonographic Romero''s sign. There is no pericholecystic fluid. There are no gallstones. Common Bile Duct (C.B.D.): The common bile duct measures 6.7 mm. Pancreas: There is normal echogenicity of the visualized pancreas. There is no demonstrated pancreatic mass or cyst. Right Kidney: Normal size of the right kidney. The right kidney measures 11.2 cm x 5.2 cm x 4.5 cm. Normal renal cortex. The right cortex measures 1.7 cm. There is no demonstrated renal mass or cyst. There is no right hydronephrosis. US/ABD Limited w/ Elastography IMPRESSION: 1. Liver stiffness measures 11.06 kPa compatible with F2-F3 (Mild to moderate liver fibrosis) Metavir score. Electronically Signed: Ad Castano MD at 14:27 EST ,
== END | disposition home or self-care (01) ==
LOC: US 08:01
PROVIDERS: PCP Family Medicine; Referring Provider Internal Medicine Gastroenterology; Visit Provider Internal Medicine Gastroenterology
DX: K76.0 Fatty (change of) liver, not elsewhere classified (principal)
CPT/HCPCS: 91200; 76705; 76981

== ENCOUNTER 2023-08-17 06:53 | Day surgery (SDC) | payer OTHER, SELFPAY ==
--- NOTE | 2023-08-17 | GASB_PTH ---
PATIENT: REMI PRIETO LOC: EN U#:[id number] AGE/SX: 63/F ROOM: RE08/17/[address]: Dr. Keo Sarmiento DO : 1960 BED: DIS: 08/17/2023 SPEC #: [id number] RECD: 08/17/23 13:47 STATUS: TYREE REVasyl #: [id number] EMMY: 08/17/23 00:[address]: Keo Sarmiento DEPT: SURGICAL PATHOLOGY RECD BY: Rafael Smart ENTERED: 08/17/23 13:47 SP TYPE: Gastric Bx ALLA DR: Dr. Kale Justice DO Tissues: A - Duodenum, NOS B - Gastric mucous membrane Procedures: Special Stain Group II Surgery Specimen Level IV Alcian Blue/PAS (control) HEADER OPERATION: EGD, RFA PRE-OP DIAGNOSIS: NAFLD, metabolic syndrome, Sky's esophagus, dysphagia TISSUE SUBMITTED: A - Duodenum biopsy, B - Pylorus biopsy MICROSCOPIC DIAGNOSIS A. Duodenum, biopsy: Fragments of duodenal mucosa with mild nonspecific chronic inflammation. B. Pylorus, biopsy: Moderate gastritis. See microscopic description and comment. SJ:claudine 08/18/2023 COMMENT B. The results of immunohistochemistry for Helicobacter pylori will be reported separately ([id number]). Alcian blue/PAS stain with matched control is used in the evaluation of the specimen. MICROSCOPIC DESCRIPTION Slides are reviewed. B. The specimen shows fragments of gastric mucosa with chronic inflammatory cell infiltrates in the lamina propria consisting of lymphocytes and plasma cells, consistent with moderate chronic gastritis. Focal intestinal metaplasia (goblet cell metaplasia) is also noted. GROSS DESCRIPTION A - Received in fixative is one container labeled with the patient's name and designated duodenal biopsy. The specimen consists of multiple irregular fragments of light medrano soft tissue that in aggregate measure 1.5 x 0.2 x 0.1 cm. The specimen is totally submitted in one cassette. B - Received in fixative is one container labeled with the patient's name and designated pylorus biopsy. The specimen consists of multiple irregular fragments of light medrano soft tissue that in aggregate measure 1.0 x 0.5 x 0.1 cm. The specimen is totally submitted in one cassette. / ABE:claudine 08/17/2023 TC:3 CPT: 48478 x2, 47686
[2023-08-17 07:20] VITALS: BP 158/87; PULSE 70; RESP 16; TEMP 36.4; O2SAT 100; BMI 25.7
--- NOTE | 2023-08-17 08:00 | IMM_PTH ---
PATIENT: REMI PRIETO LOC: EN U#:[id number] AGE/SX: 63/F ROOM: RE08/17/[address]: Dr. Keo Sarmiento DO : 1960 BED: DIS: 08/17/2023 SPEC #: [id number] RECD: 08/17/23 14:58 STATUS: TYREE REQ #: [id number] EMMY: 08/17/23 08:[address]: Keo Sarmiento DEPT: IMMUNOHISTOCHEMISTRY RECD BY: Fallon Merino ENTERED: 08/17/23 14:59 SP TYPE: IMMUNO OTHR DR: Dr. Kale Justice DO Tissues: B - Pylorus Procedures: H Pylori (initial) PHYSICIAN & INSTITUTION [place] [id number] SPECIMEN INFORMATION: Tissue Source: B - Pylorus Clinical Info: NAFLD, metabolic syndrome, Sky's esophagus, dysphagia Specimen Number: [id number] CPT code: 81858 METHODOLOGY: Deparaffinized sections of prefer/formalin-fixed tissue or PAP/DQ stained slides are incubated with monoclonal/polyclonal antibodies/oligonucleotide probes. Localization is made via biotin free immunoperoxidase method. Appropriate controls are performed and reacted as expected. Results on target cell population are indicated in the following table: RESULTS: ANTIBODY / CLONE RESULT Block B H Pylori (polyclonal) negative These tests were developed and their performance characteristics determined by [facility]. They may not have been cleared or approved by the U.S. Food and Drug Administration. The FDA has determined that such clearance or approval is not necessary. The above immunohistochemical/dualISH markers are ordered and reviewed by the Pathologist. INTERPRETATION: B. Pylorus, biopsy: Negative for Helicobacter pylori organisms. ABE/ulises 08/18/23
--- NOTE | 2023-08-17 08:02 | HP.PCM_ITS ---
History and Physical Date of Admission: 08/17/23 NAFLD, metabolic syndrome Details: REMI PRIETO, is a 63 F who presents to the office today for a follow-up visit after undergoing an a recent upper endoscopy. Prior workup: ? US 08.10.12 hepatic measurement 15.4cm, fatty infiltration, hepatic cyst [id number] ? Barium swallow 05.14.20 *BGI established 11.26.21 reports regular nausea with itching sensation in her throat and gagging for two months without change; no food trigger identified. Zofran and Amy-Crosby helpful with nausea. Postprandial LUQ abdominal discomfort/pain with bloating following ingestion of certain food for two years. Start PPI, sucralfate and scopolamine patch. ? US and elastography 12.09.21 hepatic measurement 19.8cm with fatty infiltration, 1x1.5x0.9cm hepatic cyst, stiffness 6kPa. Biochemical 12.09.21 CBC, ESR, haptoglobin, CMP, LFT, LDH, CRP, JESUS, A1c, AFP, ferritin, ceruloplasmin, coag, ADALI comp, ANCA, GAME, LISA, AMA, ASM, hepatitis, HIV without pertinent abnormality. A1c H5.9, CRP H6.95, triglycerides H212, cholesterol H264? Fib4 0.81 ? EGD 01.13.22 LA Grade A esophagitis; ectopic gastric mucosa of proximal esophagus; gastritis; duodenitis, Jo gland hyperplasia. Metaplasia not found. H.Pylori WNL Referred 01.19.22 for ablation which was performed 03.02.22. Reports the procedure went well. OV 04.14.22 Continue ursodiol/Vit E NAFLD. Continue PPI ? US and elastography 05.17.22 hepatic measurement 18cm with fatty infiltration, 1.1x1.2x0.9cm cyst, stiffness 11kPa ? Elastography 06.04.22 hepatic stiffness 10kPa OV 06.08.22 with metabolic syndrome with possible recommendation for GLP-1 ? Biochemical 06.12.22 CBC, CMP, A1c, lipids, coag without pertin ent abnormality ? A1c H5.9? FIB4 0.76 OV 08.05.22 Continue Mounjaro, increase to 5mg weekly for metabolic syndrome. Continue Vit E and ursodiol. ? Biochemical 12.15.22 (PCP) A1c, triglycerides WNL ? Cholesterol H270? FIB 4 0.55 ? US and elastography 12.28.22 stiffness 6.6kPa? US read requested 04.19.23/05.10.23 OV 01.03.23 doing well. Continue Mounjaro, has resumed atorvastatin, consider addition of COQ10 OV 05.10.23 feels she is having intermittent difficulty with swallowing with cough and gagging. Continues to have nausea with most PO intake. Has lost 28lbs intentionally. Mounjaro was stopped approximately six weeks ago r/t cost. She is feeling very good since undergoing the endoscopy. She was discovered to have a Schatzki's ring which was dilated. Biopsies of distal esophagus did not show any signs of intestinal metaplasia, dysplasia or cancer. We also performed biopsies of the gastric antrum, gastric body, incisor region and gastric cardia. Areas and gastric antrum were positive for gastric intestinal metaplasia without dysplasia or cancer. It also was negative for H. pylori. She has been feeling a lot better since we have eliminated wheat, eggs and milk products ROS Const Constitutional: Positive for fatigue and weight change ENT ENT: No difficulty swallowing Gastro GI: No abdominal pain, belching, bloating, change in bowel habits, change in stool character, coffee ground emesis, constipation, cramping, diarrhea, heartburn, difficulty swallowing, feeling full early, excessive flatus, incontinent of stools, Vomiting blood/hematemesis, Blood in stool, loose stools, Black,tarry stools, nausea/dyspepsia, pain with swallowing, vomiting or other Musc Musculoskeletal: Positive for joint pain, joint swelling, stiffness, Arthritis and restless legs Skin Skin: No yellowing of the eye or itchy eyes Neuro Neurology: Positive for restless legs Psych Psychiatric: Positive for anxiety, No depression and Positive for hyperactivity Endo Endocrine: Positive for fatigue and weight change Aller/Imm Allergy/Immunologic: No itchy eyes Manuel/Lymp Hematologic/Lymphatic: No easy bleeding or easy bruising Exam Const General: cooperative, comfortable and no acute distress Orientation: alert, awake and oriented x3 Eyes Sclera: sclerae normal Resp Effort & Inspection: normal respiratory effort GI Inspection: normal to inspection Quality Reporting Tobacco Screening ([facility] 138) Smoking Status: Never smoker Assessment and Plan Assessment and Plan (1) NAFLD (nonalcoholic fatty liver disease): Status: Chronic Plan: Good improvement of liver stiffness with weight loss She will continue ursodiol and vitamin E for the time being, repeat elastography in 6 months (2) Metabolic syndrome: Status: Chronic Plan: Continue Mounjaro 5 mg subcu weekly She has resumed atorvastatin, consider taking with co-Q10 (3) Barretts esophagus: Status: Chronic (4) Dysphagia: Status: Chronic Qualifiers: Dysphagia type: esophageal phase Qualified Code(s): R13.19 - Other dysphagia Plan: Status post EGD with dilation. She does not have any more esophageal dysphagia at this time. (5) Abdominal pain: Status: Resolved Qualifiers: Abdominal location: epigastric Qualified Code(s): R10.13 - Epigastric pain Plan: Differential diagnosis for abdominal pain does include peptic ulcer disease in the setting of a full dose aspirin taken every day. Also her healing abilities due to the fact that she has fatty liver disease is decreased. She is still on PPI therapy for her gastritis and associated gastric intestinal metaplasia. She does not smoke or drink any alcohol. For now she will continue on PPI therapy and we will do a repeat endoscopy in approximately 1 year. (6) Nausea: Status: Resolved Plan: We will give her a short course of scopolamine patch and will bring her here every 72 days. I feel that some of her nausea supratentorial secondary to diabetes mellitus which could also lead to get symptoms. However she does have risk for disease of the upper GI tract. I have examined the patient and the H&P has been reviewed. There are no clinical changes since date of exam.
[2023-08-17 08:27] VITALS: BP 117/71; BP 158/87; PULSE 74; RESP 16; TEMP 36.6; O2SAT 97
--- NOTE | 2023-08-17 08:29 | OP.CCLET_ITS ---
08/17/2023 Kale Justice [address] [facility] [place] [address] Re : Upper GI endoscopy procedure for Shirlene Carlson Dear Dr. Justice This procedure was performed on Thursday, August 17, 2023. My impressions and recommendations are as follows: Impressions : - Normal esophagus. - Erythematous, granular and inflamed mucosa in the pylorus. Biopsied. Treated with radiofrequency ablation. - Duodenitis. Biopsied. Recommendations : - Discharge patient to home. - Resume previous diet. - Continue present medications. - Await pathology results. - Repeat upper endoscopy in 6 months for surveillance. My findings are described in the full procedure note, which is enclosed. If I can be of further assistance, please feel free to contact me at . Sincerely, Keo Sarmiento, 08/17/2023 8:28:43 AM This report has been signed electronically.
--- NOTE | 2023-08-17 08:29 | OP.EGD_ITS ---
Patient Name: Shirlene Carlson Procedure Date: 08/17/2023 8:01 AM Date of : 1960 Age: 63 Procedure: Upper GI endoscopy Indications: Epigastric abdominal pain, Functional Dyspepsia, Heartburn Providers: Keo Sarmiento DO Referring MD: Kale Justice Medicines: Monitored Anesthesia Care Patient Profile: This is a 63 year old female. Refer to note in patient chart for documentation of history and physical. Patient has symptoms of chronic epigastric abdominal pain and chronic dyspepsia. Her most recent EGD for biopsy was within the past year. Complications: No immediate complications. Procedure: Pre-Anesthesia Assessment: - Prior to the procedure, a History and Physical was performed, and patient medications and allergies were reviewed. The patient is competent. The risks and benefits of the procedure and the sedation options and risks were discussed with the patient. All questions were answered and informed consent was obtained. Patient identification and proposed procedure were verified by the physician in the pre-procedure area. Mental Status Examination: alert and oriented. Airway Examination: normal oropharyngeal airway and neck mobility. Respiratory Examination: clear to auscultation. CV Examination: normal. Prophylactic Antibiotics: The patient does not require prophylactic antibiotics. Prior Anticoagulants: The patient has taken no anticoagulant or antiplatelet agents. ASA Grade Assessment: II - A patient with mild systemic disease. After reviewing the risks and benefits, the patient was deemed in satisfactory condition to undergo the procedure. The anesthesia plan was to use monitored anesthesia care (MAC). Immediately prior to administration of medications, the patient was re-assessed for adequacy to receive sedatives. The heart rate, respiratory rate, oxygen saturations, blood pressure, adequacy of pulmonary ventilation, and response to care were monitored throughout the procedure. The physical status of the patient was re-assessed after the procedure. After obtaining informed consent, the endoscope was passed under direct vision. Throughout the procedure, the patient's blood pressure, pulse, and oxygen saturations were monitored continuously. The gastroscope was introduced through the mouth, and advanced to the second part of duodenum. The upper GI endoscopy was accomplished without difficulty. The patient tolerated the procedure well. Scope In: 8:09:29 AM Scope Out: 8:21:24 AM Total Procedure Duration Time 0 hours 11 minutes 55 seconds Findings: The examined esophagus was normal. Localized moderate mucosal changes characterized by erythema, granularity and inflammation were found at the pylorus. Biopsies were taken with a cold forceps for histology. Verification of patient identification for the specimen was done. Estimated blood loss was minimal. Biopsies were taken with a cold forceps for Helicobacter pylori testing. Verification of patient identification for the specimen was done. Focal radiofrequency ablation of Sky's esophagus was performed. With the endoscope in place, the position and extent of the Sky's mucosa and the anatomic landmarks were noted. Endoscopic visualization identified an ablation site at 50 cm from the incisors. The Sky's mucosa was irrigated with water. Gastric contents were suctioned. The radiofrequency channel ablation catheter was introduced through the endoscope working channel. Sky's tissue was targeted. The endoscope with the ablation catheter was advanced to the areas of Sky's mucosa. The endoscope with the channel ablation catheter was positioned under direct visualization so that the catheter was placed in contact with the surface of the Sky's mucosa. Energy was applied twice at 12 J/cm2. The channel ablation catheter was then removed through the endoscope working channel, and the ablation catheter was cleaned. The endoscope was left in place. The ablation zone was cleaned of coagulative debris. The ablation catheter was reinserted into the endoscope working channel. A second round of ablation was then performed. Energy was applied twice at 12 J/cm2 to retreat the areas of Sky's epithelium that had been treated with the first series of ablation. The ablation catheter was removed through the endoscope working channel. The areas of the esophagus where Sky's mucosa had been ablated were examined. Whitish changes of ablated mucosa were present. The total number of energy applications for all mucosal sites treated was 27. The endoscope was then removed. Estimated blood loss was minimal. Localized mild inflammation characterized by erythema, friability and granularity was found in the duodenal bulb. Biopsies were taken with a cold forceps for histology. Verification of patient identification for the specimen was done. Estimated blood loss was minimal. Impression: - Normal esophagus. - Erythematous, granular and inflamed mucosa in the pylorus. Biopsied. Treated with radiofrequency ablation. - Duodenitis. Biopsied. Recommendation: - Discharge patient to home. - Resume previous diet. - Continue present medications. - Await pathology results. - Repeat upper endoscopy in 6 months for surveillance. Procedure Code(s): --- Professional --- 76959, Esophagogastroduodenoscopy, flexible, transoral; with ablation of tumor(s), polyp(s), or other lesion(s) (includes pre- and post-dilation and guide wire passage, when performed) 01478, 59,51, Esophagogastroduodenoscopy, flexible, transoral; with biopsy, single or multiple CPT copyright 2021 [employer]. All rights reserved. The codes documented in this report are preliminary and upon reproduction order processor review may be revised to meet current compliance requirements. Keo Sarmiento DO 08/17/2023 8:28:43 AM This report has been signed electronically. Number of Addenda: 0 Note Initiated On: 08/17/2023 8:01 AM
[2023-08-17 08:30] VITALS: BP 122/72; BP 158/87; PULSE 74; RESP 16; O2SAT 97
[2023-08-17 08:35] VITALS: BP 117/73; BP 158/87; PULSE 71; RESP 16; O2SAT 98
[2023-08-17 08:40] VITALS: BP 131/74; BP 158/87; PULSE 68; RESP 16; O2SAT 97
[2023-08-17 08:43] VITALS: BP 132/74; BP 158/87; PULSE 67; RESP 16; TEMP 36.8; O2SAT 97
== END 2023-08-17 09:06 | disposition home or self-care (01) ==
LOC: EN 06:54 → AC 06:56
PROVIDERS: PCP Family Medicine; Referring Provider Family Medicine; Visit Provider Internal Medicine Gastroenterology
PROC: 0DJ08ZZ Inspection of Upper Intestinal Tract, Via Natural or Artificial Opening Endoscopic (ICD-10-PCS; CPT 43235; principal; 2023-08-17 07:55)
DX: K22.70 Barrett's esophagus without dysplasia (principal); K76.0 Fatty (change of) liver, not elsewhere classified; K29.80 Duodenitis without bleeding; K29.50 Unspecified chronic gastritis without bleeding; K31.A0 Gastric intestinal metaplasia, unspecified; E88.810 Metabolic syndrome; I10 Essential (primary) hypertension; E78.00 Pure hypercholesterolemia, unspecified; E55.9 Vitamin D deficiency, unspecified; F41.9 Anxiety disorder, unspecified; Z79.82 Long term (current) use of aspirin; Z79.899 Other long term (current) drug therapy; Z86.16 Personal history of COVID-19; Z86.73 Personal history of transient ischemic attack (TIA), and cerebral infarction without residual deficits
CPT/HCPCS: 43239; 43270; 88305; 88313; 88342; J7120; J2405

== ENCOUNTER 2023-09-14 06:01 | Day surgery (SDC) | payer OTHER, SELFPAY ==
--- OUTSIDE RECORDS SUMMARY | 2023-09-14 06:05 | XMS RPT_ITS | CCD ---
Author Name Unknown Address [address] [place] [address] Organization [facility] Care Team Providers Care Patient Carrier Name Role Phone Marcelo uJstice Unavailable Unavailable Darrius Gamez Unavailable Crissy Morel Unavailable Crissy Morel Unavailable Sola Rodriguez Unavailable Sarah Lockett Unavailable Crissy Morel Unavailable Rox Ratliff Unavailable Unavailable Rox Ratliff Unavailable Unavailable Dionte Christensen Unavailable Unavailable Mannie Chowdhury Unavailable Unavailable Mannie Chowdhury Unavailable Unavailable NILA Ratliff Michelle M Unavailable [phone] Vidya Ma Unavailable Unavailable Darrius Gamez Unavailable Crissy Morel Unavailable Marcelo Justice Primary Care Provider MANNIE CHOWDHURY Admitting Unavailab MARCELO Boles Primary Care Unavailable MANNIE CHOWDHURY Attending Unavailab MANNIE Saenz Referring Unavailab MARCELO Boles Primary Care Unavailable BECKY PERALTA Admitting Unavailable BECKY PERALTA Referring Unavailable MARCELO JUSTICE Primary Care Unavailable MANNIE CHOWDHURY Attending Unavailab MARCELO Boles Primary Care Unavailable MANNIE CHOWDHURY Admitting Unavailab BECKY Adames Attending Unavailable MANNIE CHOWDHURY ALANA Referring Unavailab MARCELO Boles Primary Care Unavailable BECKY PERALTA Attending Unavailable MARCELO JUSTICE Primary Care Unavailable BECKY PERALTA Attending Unavailable MARCELO JUSTICE Primary Care Unavailable BECKY PERALTA Attending Unavailable MARCELO JUSTICE Primary Care Unavailable Marcelo Justice Primary Care Provider Mandy Pereira RN Unavailable Unavailable VinhMarcelo Unavailable Rowan Shook Unavailable Unavailable Marcelo Justice Unavailable Oleksandr Zambrano Primary Care Provider Allergies Allergy Classification Reported Allergen(s) Allergy Type Date of Onset Reaction(s) Facility (15 sources) topiramate; Translations: [Unknown] Propensity to adverse reactions to drug 5 [facility] (20 sources) topiramate drug allergy 7 Made migraines worse, Very dry mouth [facility] Work Phone: (14 sources) NKDA drug allergy 4 [facility] Work Phone: Medications Current Medications Medication Drug Class(es) Dates Sig (Normalized) Sig (Original) ALPRAZolam 0.5 mg oral tablet (20 sources) Benzodiazepine Start: 12-30-2009 ALPRAZolam (XANAX) 0.5 MG tablet Completed/Discontinued Medications Medication Drug Class(es) Dates Sig (Normalized) Sig (Original) acetaminophen 300 mg / HYDROcodone bitartrate 5 mg oral tablet (20 sources) Opioid Agonist Start: 10-09-2012 End: 06-29-2013 take 1-2 tablets by mouth four times daily as needed for pain VICODIN 5-300 MG TABS one to two tablets by mouth four times daily as needed for pain HYDROCODONE-ACETAM INOPHEN [id number] Dionte Christensen MD Problems Active Problems Problem Classification Problem Date Documented Date Episodic/Chronic Abdominal pain (20 sources) Right upper quadrant pain; Translations: [Epigastric pain] Onset: 09-18-2010 Resolved: 02-05-2015 02-05-2015 Episodic Anxiety disorders (20 sources) Anxiety disorder; Translations: [Anxiety disorder, unspecified] Onset: 12-30-2009 Resolved: 07-07-2016 12-30-2009 Chronic Conduction disorders (20 sources) Right bundle branch block; Translations: [Left bundle branch block] Onset: 12-30-2009 12-30-2009 Chronic Digestive congenital anomalies (1 source) Ectopic gastric mucosa; 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 Disorders of lipid metabolism (20 sources) Hyperlipidemia; Translations: [Mixed hyperlipidemia] Onset: 06-23-2011 Resolved: 06-23-2011 07-07-2016 Chronic Essential hypertension (20 sources) Hypertensive disorder; Translations: [Essential (primary) hypertension] Onset: 1959 12-30-2009 Chronic Headache, including migraine (20 sources) Migraine; Translations: [Migraine, unspecified, not intractable, without status migrainosus] Onset: 12-30-2009 Resolved: 07-07-2016 12-30-2009 Chronic Nausea and vomiting (20 sources) Nausea; Translations: [Nausea alone] Onset: 08-02-2012 Resolved: 06-29-2013 08-02-2012 Episodic Nutritional deficiencies (20 sources) Vitamin D deficiency; Translations: [Vitamin D deficiency, unspecified] Onset: 01-25-2014 Resolved: 07-07-2016 01-25-2014 Chronic Osteoarthritis (20 sources) Localized, primary osteoarthritis; Translations: [Osteoarthrosis of the carpometacarpal joint of the thumb] Onset: 09-14-2016 02-15-2017 Chronic Other and unspecified benign neoplasm (20 sources) Benign neoplasm of meninges; Translations: [Benign neoplasm of meninges, unspecified] Onset: 03-18-2011 Resolved: 07-07-2016 03-18-2011 Chronic Other connective tissue disease (1 source) Pain in toe; Translations: [Pain of right great toe] Episodic Other connective tissue disease (2 sources) Adhesive capsulitis of left shoulder; Translations: [Adhesive capsulitis of left shoulder] Onset: 10-15-2015 11-03-2015 Other liver diseases (20 sources) Steatosis of liver; Translations: [Fatty (change of) liver, not elsewhere classified] Onset: 09-30-2010 Resolved: 07-07-2016 09-30-2010 Chronic Other non-traumatic joint disorders (1 source) Arthritis of first carpometacarpal joint of left hand; Translations: [Arthritis of carpometacarpal (CMC) joint of left thumb] Other nutritional; endocrine; and metabolic disorders (20 sources) Obesity; Translations: [Obesity, unspecified] Onset: 06-23-2011 Resolved: 01-13-2012 06-23-2011 Chronic Other upper respiratory infections (20 sources) Chronic maxillary sinusitis; Translations: [Chronic maxillary sinusitis] Onset: 09-18-2010 Resolved: 03-08-2011 03-08-2011 Chronic Otitis media and related conditions (1 source) Otitis media; Translations: [Unspecified otitis media] 01-31-2021 Episodic Otitis media and related conditions (1 source) Otitis media and related conditions 01-31-2021 Peripheral and visceral atherosclerosis (20 sources) Peripheral vascular disease; Translations: [Peripheral vascular disease, unspecified] Onset: 05-22-2010 Resolved: 09-18-2010 05-22-2010 Chronic Rheumatoid arthritis and related disease (20 sources) Rheumatoid arthritis; Translations: [Rheumatoid arthritis of multiple joints] Onset: 12-30-2009 Resolved: 07-07-2016 07-07-2016 Chronic Spondylosis; intervertebral disc disorders; other back problems (14 sources) Degeneration of cervical intervertebral disc; Translations: [Other cervical disc degeneration, mid-cervical region] Onset: 10-15-2015 11-03-2015 Chronic Thyroid disorders (20 sources) Thyroid nodule; Translations: [Nontoxic single thyroid nodule] Onset: 10-16-2014 Resolved: 07-07-2016 03-18-2011 Chronic Unclassified (18 sources) Aftercare ; Translations: [Encounter for other orthopedic aftercare] Onset: 01-03-2017 01-03-2017 Unclassified (7 sources) Long-term drug therapy; Translations: [Other terminal clerk (current) drug therapy] Onset: 01-21-2017 01-21-2017 Unclassified (2 sources) EAR ACHE 01-31-2021 Past or Other Problems Problem Classification Problem Date Documented Date Episodic/Chronic Allergic reactions (20 sources) Acute phototoxic dermatitis; Translations: [Acute dermatitis due to solar radiation] Onset: 01-26-2012 Resolved: 04-14-2012 01-26-2012 Episodic Conditions associated with dizziness or vertigo (20 sources) Dizziness; Translations: [Dizziness and giddiness] Onset: 02-05-2015 Resolved: 08-13-2015 02-05-2015 Episodic Disorders of teeth and jaw (14 sources) Temporomandibular vwopg-augh-ilcgzktipwi syndrome; 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] Onset: 08-13-2015 Resolved: 08-20-2015 08-13-2015 Episodic Fluid and electrolyte disorders (20 sources) Hypokalemia; Translations: [Hypokalemia] Onset: 01-25-2014 Resolved: 02-05-2015 01-25-2014 Episodic Fracture of upper limb (14 sources) Unspecified fracture of navicular [scaphoid] bone of unspecified wrist, sequela; Translations: [Unspecified fracture of navicular [scaphoid] bone of unspecified wrist, sequela] Onset: 09-14-2016 09-14-2016 Episodic Other aftercare (12 sources) Superior glenoid labrum lesion of left shoulder, subsequent encounter; Translations: [Other care home (current) drug therapy] Onset: 12-08-2016 12-16-2016 Episodic Other circulatory disease (14 sources) Electrocardiogram abnormal; Translations: [Abnormal electrocardiogram [ECG] [EKG]] Onset: 07-14-2016 07-14-2016 Episodic Other connective tissue disease (20 sources) Pain in thumb ; Translations: [Nontraumatic rotator cuff tear] Onset: 04-11-2015 Resolved: 07-07-2016 10-13-2015 Episodic Other connective tissue disease (7 sources) Nontraumatic rotator cuff tear; Translations: [Incomplete rotator cuff tear or rupture of left shoulder, not specified as traumatic] Onset: 12-08-2016 12-16-2016 Episodic Other connective tissue disease (7 sources) Disorder of rotator cuff; Translations: [Unspecified rotator cuff tear or rupture of left shoulder, not specified as traumatic] Onset: 02-18-2016 02-18-2016 Episodic Other connective tissue disease (8 sources) Radial styloid tenosynovitis; Translations: [Radial styloid tenosynovitis [de Quervain]] Onset: 09-14-2016 09-14-2016 Episodic Other connective tissue disease (14 sources) Hand pain; Translations: [Pain in left hand] Onset: 04-11-2015 Resolved: 07-07-2016 07-07-2016 Episodic Other connective tissue disease (7 sources) Impingement syndrome of shoulder region; Translations: [Impingement syndrome of left shoulder] Onset: 03-24-2016 03-29-2016 Episodic Other connective tissue disease (5 sources) Adhesive capsulitis of left shoulder; Translations: [Adhesive capsulitis of left shoulder] Onset: 10-15-2015 11-03-2015 Episodic Other ear and sense organ disorders (20 sources) Impacted cerumen; Translations: [Otitis externa] Onset: 06-25-2014 Resolved: 02-05-2015 02-05-2015 Episodic Other ear and sense organ disorders (14 sources) Otitis externa; Translations: [Unspecified otitis externa, unspecified ear] Onset: 06-25-2014 Resolved: 02-05-2015 06-25-2014 Episodic Other lower respiratory disease (20 sources) Dyspnea; Translations: [Dyspnea, unspecified] Onset: 06-05-2015 Resolved: 08-13-2015 06-05-2015 Episodic Other nervous system disorders (20 sources) Paresthesia; Translations: [Unspecified disturbances of skin sensation] Onset: 02-05-2015 Resolved: 08-13-2015 08-13-2015 Episodic Other non-traumatic joint disorders (20 sources) Shoulder pain; Translations: [Pain in left shoulder] Onset: 09-15-2015 Resolved: 10-15-2015 11-03-2015 Episodic Other non-traumatic joint disorders (7 sources) Pain in left shoulder; Translations: [Pain in left shoulder] Onset: 09-15-2015 Resolved: 10-15-2015 09-15-2015 Episodic Other nutritional; endocrine; and metabolic disorders (20 sources) Body mass index (BMI) 26.0-26.9, adult; Translations: [Body mass index (BMI) 26.0-26.9, adult] Onset: 10-01-2014 Resolved: 04-11-2015 10-01-2014 Episodic Other skin disorders (20 sources) Skin lesion; Translations: [Disorder of the skin and subcutaneous tissue, unspecified] Onset: 09-12-2014 Resolved: 02-05-2015 02-05-2015 Episodic Other skin disorders (14 sources) Mass of neck; Translations: [Localized swelling, mass and lump, neck] Onset: 09-12-2014 Resolved: 02-05-2015 02-05-2015 Episodic Other upper respiratory infections (20 sources) Acute pharyngitis; Translations: [Maxillary sinusitis] Onset: 09-18-2010 Resolved: 03-08-2011 12-01-2010 Episodic Residual codes; unclassified (20 sources) Family history of stroke; Translations: [Postmenopausal state] Onset: 06-29-2013 Resolved: 07-07-2016 02-05-2015 Episodic Residual codes; unclassified (14 sources) Postmenopausal state; Translations: [Asymptomatic menopausal state] Onset: 06-29-2013 Resolved: 07-07-2016 07-07-2016 Episodic Residual codes; unclassified (14 sources) Insomnia; Translations: [Psychophysiologic insomnia] Onset: 05-08-2014 Resolved: 07-07-2016 07-07-2016 Episodic Residual codes; unclassified (14 sources) Family history of asthma; Translations: [Family history of asthma and other chronic lower respiratory diseases] Resolved: 02-05-2015 02-05-2015 Episodic Skin and subcutaneous tissue infections (20 sources) Cellulitis and abscess of trunk; Translations: [Cellulitis and abscess of trunk] Onset: 09-27-2012 Resolved: 03-21-2013 10-22-2012 Episodic Spondylosis; intervertebral disc disorders; other back problems (14 sources) Chronic neck pain; Translations: [Cervicalgia] Onset: 09-15-2015 Resolved: 10-15-2015 09-15-2015 Episodic Sprains and strains (20 sources) Superior glenoid labrum lesion of left shoulder, initial encounter; Translations: [Superior glenoid labrum lesion of left shoulder, subsequent encounter] Onset: 03-24-2016 03-29-2016 Episodic Unclassified (14 sources) Screening mammography ; Translations: [Encounter for other screening for malignant neoplasm of breast] Onset: 03-21-2013 Resolved: 08-13-2015 03-21-2013 Unclassified (14 sources) General examination of patient ; Translations: [Encounter for other general examination] Onset: 09-28-2013 Resolved: 02-05-2015 09-28-2013 Unclassified (7 sources) Screening for malignant neoplasm of breast ; Translations: [Other specified health status] Onset: 05-07-2015 Resolved: 05-10-2015 05-07-2015 Unclassified (4 sources) Finding of body mass index; Translations: [Body mass index (BMI) 26.0-26.9, adult] Onset: 10-01-2014 Resolved: 04-11-2015 10-01-2014 Viral infection (20 sources) Herpes zoster; Translations: [Zoster without complications] Onset: 06-23-2011 Resolved: 02-05-2015 02-05-2015 Episodic Results Test Name Value Interpretation Reference Range Facil ity Vital Signs Date Time Vital Sign Value Performing Clinician Facility 01-31-2021 11:33-0400 Body height 162.5 cm Marcelo Justice Other Phone: [facility] 01-31-2021 11:33-0400 Body temperature 98.78 [degF] Marcelo Justice Other Phone: [facility] 01-31-2021 11:33-0400 Diastolic blood pressure 77 mm[Hg] Marcelo Justice Other Phone: [facility] 01-31-2021 11:33-0400 Heart rate 79 /min Marcelo Justice Other Phone: [facility] 01-31-2021 11:33-0400 Respiratory rate 16 /min Marcelo Justice Other Phone: [facility] 01-31-2021 11:33-0400 SaO2% (BldA) [Mass fraction] 97 % Marcelo Justice Other Phone: [facility] 01-31-2021 11:33-0400 Systolic blood pressure 110 mm[Hg] Marcelo Justice Other Phone: [facility] 02-20-2020 07:58-0400 Body Temperature 97.7 [degF] Becky Peralta [facility] 09-05-2019 15:34-0500 BMI (Body Mass Index) 26.96 kg/m2 Mannei Ricksmoisesmichael [facility] 09-05-2019 15:34-0500 Body weight 73.48 kg Mannie Rickskunal [facility] 09-05-2019 15:34-0500 BP Diastolic 93 mm[Hg] Mannie Rambokunal [facility] 09-05-2019 15:34-0500 BP Systolic 168 mm[Hg] Mannie Chowdhury [facility] 09-05-2019 15:34-0500 Pulse (Heart Rate) 78 /min [facility] 01-17-2019 09:08-0400 BMI (Body Mass Index) 27.31 kg/m2 Mannie Chowdhury [facility] 01-17-2019 09:08-0400 BP Diastolic 83 mm[Hg] [facility] 01-17-2019 09:08-0400 BP Systolic 160 mm[Hg] Mannie [facility] 01-17-2019 09:08-0400 Pulse (Heart Rate) 76 /min [facility] 01-17-2019 09:08-0400 Weight 74.44 kg [facility] 04-26-2018 09:44-0400 BMI (Body Mass Index) 26.14 kg/m2 Mannie [facility] 04-26-2018 09:44-0400 BP Diastolic 96 mm[Hg] Mannie [facility] 04-26-2018 09:44-0400 BP Systolic 177 mm[Hg] [facility] 04-26-2018 09:44-0400 Pulse (Heart Rate) 80 /min Mannie [facility] 04-26-2018 09:44-0400 Weight 71.26 kg Mannie [facility] 01-25-2018 09:41-0400 BMI (Body Mass Index) 25.86 kg/m2 Mannie [facility] 01-25-2018 09:41-0400 BP Diastolic 76 mm[Hg] Mannie [facility] 01-25-2018 09:41-0400 BP Systolic 165 mm[Hg] [facility] 01-25-2018 09:41-0400 Pulse (Heart Rate) 86 /min Mannie [facility] 01-25-2018 09:41-0400 Weight 70.49 kg Mannie [facility] 10-19-2017 11:11-0500 BMI (Body Mass Index) 26.11 kg/m2 Mannie [facility] 10-19-2017 11:11-0500 BP Diastolic 82 mm[Hg] Mannie [facility] 10-19-2017 11:11-0500 BP Systolic 166 mm[Hg] Mannie [facility] 10-19-2017 11:11-0500 Pulse (Heart Rate) 82 /min Mannie Chowdhury [facility] 10-19-2017 11:11-0500 Weight 71.17 kg Mannie Chowdhury [facility] 02-09-2017 11:07-0400 BMI (Body Mass Index) 25.82 kg/m2 [facility] Work Phone: 02-09-2017 11:07-0400 BP Diastolic 70 mm[Hg] [facility] Work Phone: 02-09-2017 11:07-0400 BP Systolic 132 mm[Hg] [facility] Work Phone: 02-09-2017 11:07-0400 Height 167.64 cm [facility] Work Phone: 02-09-2017 11:07-0400 Pulse (Heart Rate) 72 /min [facility] Work Phone: 02-09-2017 11:07-0400 Respiratory Rate 20 /min [facility] Work Phone: 02-09-2017 11:07-0400 Weight 72.58 kg [facility] Work Phone: 12-15-2016 12:22-0400 Body surface area Derived from formula 90.08 mL/min Mandy Pereira RN [facility] Work Phone: 07-14-2016 09:00-0500 BMI (Body Mass Index) 26.47 kg/m2 [facility] Work Phone: 07-14-2016 09:00-0500 Body weight 74.39 kg Mandy Pereira RN [facility] Work Phone: 07-14-2016 09:00-0500 BP Diastolic 72 mm[Hg] [facility] Work Phone: 07-14-2016 09:00-0500 BP Systolic 140 mm[Hg] Darrius Franco [facility] Work Phone: 07-14-2016 09:00-0500 BSA (Body Surface Area) 1.84 m2 [facility] Work Phone: 07-14-2016 09:00-0500 Height 167.[address] [facility] Work Phone: 07-14-2016 09:00-0500 Pulse (Heart Rate) 66 /min [facility] Work Phone: 07-14-2016 09:00-0500 Respiratory Rate 16 /min [facility] Work Phone: 07-14-2016 09:00-0500 [address] 74[address] [facility] Work Phone: 09-15-2015 10:54-0500 Body Temperature 98.4 [degF] [facility] Work Phone: 09-15-2015 10:54-0500 Pulse Oximetry 99 % [facility] Work Phone: 10-03-2013 15:19-0500 Heart rate 66 /min [facility] Work Phone: 10-03-2013 15:19-0500 Heart rate 486 ms Mandy Pereira RN [facility] Work Phone: Encounters Encounter Date Encounter Type Care Provider Facility Start: 01-27-2022 AUDIT Marcelo Segura n Work Phone: [id number] DO Work Phone: Start: 01-31-2021 End: 01-31-2021 Emergency department patient visit Rowan Shook [facility] 01 Start: 10-30-2020 End: 10-30-2020 Orders Only Denise Rockwell Work Phone: [facility] Start: 02-20-2020 End: 02-20-2020 Patient encounter procedure BECKY PERALTA [facility] Start: 02-20-2020 End: 02-20-2020 Office outpatient visit 10 minutes Becky Peralta Work Phone: [facility] [place] Procedures Date Procedure Procedure Detail Performing Clinician Start: 02-20-2020 Arthrocentesis aspir&/inj small jt/bursa w/o us Becky Peralta Work Phone: Start: 01-09-2020 Arthrocentesis aspir&/inj small jt/bursa w/o us Becky Peralta Work Phone: Start: 09-26-2019 Arthrocentesis aspir&/inj small jt/bursa w/o us Becky Peralta Work Phone: Start: 09-05-2019 Radex hand 2 views Mannie madsen Work Phone: Start: 02-09-2017 End: 06-02-2017 *Hepatic Function Panel Jagdish Nguyen Start: 02-09-2017 End: 02-09-2017 Follow Up Appt 1 year Maciel Rowell MD Start: 02-09-2017 End: 02-09-2017 MMM Maciel Rowell MD Start: 02-09-2017 End: 06-02-2017 Lipid 1996 panel - Serum or Plasma Maciel Rowell MD Start: 02-09-2017 End: 02-09-2017 Follow Up Appt 1 year Maciel Rowell MD Start: 02-09-2017 End: 02-09-2017 NELLY Rowell MD Start: 01-26-2017 End: 01-26-2017 Documentation of current medications Darrius Gamez Start: 01-03-2017 End: 01-03-2017 Documentation of current medications Mandy Pereira RN Start: 12-16-2016 End: 06-02-2017 *Hepatic Function Panel Jagdish Nguyen Start: 12-16-2016 End: 06-02-2017 Lipid 1996 panel - Serum or Plasma Maciel Rowell MD Start: 12-16-2016 End: 12-16-2016 *Hepatic Function Panel Jagdish Nguyen Start: 12-16-2016 End: 12-16-2016 Lipid panel [AGGREGATE] Jagdish Nguyen Start: 11-24-2016 End: 12-05-2016 Arthrocentesis aspir&/inj major jt/bursa w/o us Darrius Gamez Work Phone: Start: 11-24-2016 End: 12-05-2016 Drain/inject, joint/bursa Darrius Gamez Work Phone: Start: 09-14-2016 End: 12-16-2016 Ct upper extremity w/o contrast material Sola Rodriguez Work Phone: Start: 09-14-2016 End: 12-16-2016 Ct upper extremity w/o dye Sola rosen Work Phone: Start: 07-14-2016 End: 11-24-2016 *Hepatic Function Panel Jagdish Nguyen Start: 07-14-2016 End: 07-14-2016 Follow Up Appt 6 months Jagdish Nguyen Start: 07-14-2016 End: 11-24-2016 Lipid Hiram panel - Serum or Plasma Maciel Rowell MD Start: 07-14-2016 End: 07-14-2016 MMM Maciel Rowell MD Start: 07-14-2016 End: 11-24-2016 *Hepatic Function Panel Jagdish Nguyen Start: 07-14-2016 End: 07-14-2016 Follow Up Appt 6 months Jagdish Nguyen Start: 07-14-2016 End: 11-24-2016 Lipid panel [AGGREGATE] Jagdish Nguyen Start: 07-14-2016 End: 07-14-2016 MMM Maciel Rowell MD Start: 05-24-2016 End: 06-09-2016 Arthrocentesis aspir&/inj major jt/bursa w/o us Darrius Gamez Work Phone: Start: 05-24-2016 End: 06-09-2016 Drain/inject, joint/bursa Darrius Gamez Work Phone: Start: 02-18-2016 End: 03-02-2016 Arthrocentesis aspir&/inj major jt/bursa w/o us Darrius Gamez Work Phone: Start: 02-18-2016 End: 12-16-2016 Mri any jt upper extremity w/o contrast matrl Darrius Gamez Work Phone: Start: 02-18-2016 End: 03-02-2016 Drain/inject, joint/bursa Darrius Gamez Work Phone: Start: 02-18-2016 End: 12-16-2016 Mri joint upr extrem w/o dye Darrius Gamez Work Phone: Start: 10-15-2015 End: 11-03-2015 Arthrocentesis aspir&/inj major jt/bursa w/o us Darrius Gamez Work Phone: Start: 10-15-2015 End: 11-03-2015 Drain/inject, joint/bursa Darrius Gamez Work Phone: Start: 09-18-2015 End: 09-18-2016 Orthopedic Referral Marcelo Justice DO Work Phone: Start: 09-18-2015 End: 09-18-2016 Orthopedic Referral Marcelo Justice DO Work Phone: Start: 09-17-2015 Mammography Becky Peralta Start: 09-15-2015 End: 09-17-2015 Radex shoulder complete minimum 2 views Marcelo Wood Vinh DO Work Phone: Start: 09-15-2015 End: 09-17-2015 Radex spine cervical 2 or 3 views Marcelo Wood Vinh DO Work Phone: Start: 09-15-2015 End: 09-17-2015 X-ray exam of neck spine Marcelo Justice DO Work Phone: Start: 09-15-2015 End: 09-17-2015 X-ray exam of shoulder Marcelo Justice D O Work Phone: Start: 08-13-2015 End: 09-17-2015 *CMP Complete Metabolic Panel Marcelo Wood Vinh DO Work Phone: Start: 08-13-2015 End: 09-17-2015 25-Hydroxyvitamin D2+25-Hydroxyvitamin D3 [Mass/volume] in Serum or Plasma Marcelo Wood Vinh DO Work Phone: Start: 08-13-2015 End: 09-18-2015 Lipid 1996 panel - Serum or Plasma Marcelo Wood Vinh DO Work Phone: Start: 08-13-2015 End: 09-17-2015 Thyrotropin [Units/volume] in Serum or Plasma Marcelo Wood Vinh DO Work Phone: Start: 08-13-2015 End: 09-17-2015 Thyroxine (T4) free [Mass/volume] in Serum or Plasma Marcelo Wood Vinh DO Work Phone: Start: 08-13-2015 End: 09-17-2015 *CMP Complete Metabolic Panel Marcelo Wood Vinh DO Work Phone: Start: 08-13-2015 End: 09-17-2015 25-Hydroxyvitamin D2+25-Hydroxyvitamin D3 [Mass/volume] in Serum or Plasma Marcelo Wood Vinh DO Work Phone: Start: 08-13-2015 End: 09-18-2015 Lipid panel [AGGREGATE] Marcelo Justice DO Work Phone: Start: 08-13-2015 End: 09-17-2015 Thyroid stimulating hormone (TSH) Marcelo Justice DO Work Phone: Start: 08-13-2015 End: 09-17-2015 Thyroxine (T4) free Marcelo Justice DO Work Phone: Start: 06-05-2015 End: 09-17-2015 Chest x-ray Marcelo Justice DO Work Phone: Start: 06-05-2015 End: 09-17-2015 Chest x-ray Marcelo Justice DO Work Phone: Start: 05-07-2015 End: 09-17-2015 Mammogram, screening Marcelo Justice DO Work Phone: Start: 05-07-2015 End: 05-10-2015 Screening for malignant neoplasm of breast Screening for breast cancer Rox Ratliff PA-C Start: 05-07-2015 End: 09-17-2015 Mammogram, screening Marcelo Justice DO Work Phone: Start: 05-07-2015 End: 05-10-2015 Screening for malignant neoplasm of breast Screening for breast cancer Mandy Pereira RN Start: 04-14-2015 End: 09-17-2015 EMG Marcelo Justice DO Work Phone: Start: 04-14-2015 End: 09-17-2015 Nerve Conduction Marcelo Garyman DO Work Phone: Start: 04-14-2015 End: 09-17-2015 EMG Marcelo Wood Vinh DO Work Phone: Start: 04-14-2015 End: 09-17-2015 Nerve Conduction Marcelo Wood Vinh DO Work Phone: Start: 04-11-2015 End: 09-17-2015 EMG Marcelo Wood Vinh DO Work Phone: Start: 04-11-2015 End: 09-17-2015 Nerve Conduction Marcelo Wood Vinh DO Work Phone: Start: 04-11-2015 End: 09-17-2015 EMG Marcelo Justice DO Work Phone: Start: 04-11-2015 End: 09-17-2015 Nerve Conduction Marcelo Justice DO Work Phone: Start: 02-05-2015 End: 09-17-2015 Referral to service Marcelo Justice DO Work Phone: Start: 02-05-2015 End: 09-17-2015 Other Referral Marcelo Justice DO Work Phone: Start: 10-16-2014 End: 10-23-2014 *CMP Complete Metabolic Panel Dionte Christensen MD Start: 10-16-2014 End: 10-23-2014 25-Hydroxyvitamin D2+25-Hydroxyvitamin D3 [Mass/volume] in Serum or Plasma Dionte Christensen MD Start: 10-16-2014 End: 10-23-2014 Lipid 1996 panel - Serum or Plasma Dionte Christensen MD Start: 10-16-2014 End: 10-16-2015 Surgery Referral Dionte Christensen MD Start: 10-16-2014 End: 10-30-2014 Thyroid uptake single/multiple quant measurement Dionte Christensen MD Start: 10-16-2014 End: 10-23-2014 *CMP Complete Metabolic Panel Dionte Christensen MD Start: 10-16-2014 End: 10-23-2014 25-Hydroxyvitamin D2+25-Hydroxyvitamin D3 [Mass/volume] in Serum or Plasma Dionte Christensen MD Start: 10-16-2014 End: 10-23-2014 Lipid panel [AGGREGATE] Dionte Christensen MD Start: 10-16-2014 End: 10-16-2015 Surgery Referral Dionte Christensen MD Start: 10-16-2014 End: 10-30-2014 Thyroid uptake measurement Dionte Christensen MD Start: 10-02-2014 End: 10-03-2014 Thyrotropin [Units/volume] in Serum or Plasma Dionte Christensen MD Start: 10-02-2014 End: 10-03-2014 Thyroid stimulating hormone (TSH) Dionte Christensen MD Start: 10-01-2014 End: 10-01-2014 PROFESSOR OF VOICE Maciel Rowell MD Start: 10-01-2014 End: 10-02-2014 Documentation of current medications Maciel Rowell MD Start: 10-01-2014 End: 10-01-2014 Follow Up Appt 1 year Maciel Rowell MD Start: 10-01-2014 End: 10-01-2014 STELLA Rowell MD Start: 10-01-2014 End: 10-02-2014 Documentation of current medications Maciel Rowell MD Start: 10-01-2014 End: 10-01-2014 Follow Up Appt 1 year Maciel Rowell MD Start: 09-12-2014 End: 10-03-2014 Us soft tissue head & neck real time imge docm Dionte Christensen MD Start: 09-12-2014 End: 10-03-2014 Us exam of head and neck Dionte Christensen MD Start: 06-25-2014 End: 07-10-2014 Mri brain brain stem w/o contrast material Dionte Christensen MD Start: 06-25-2014 End: 10-03-2014 Removal impacted cerumen instrumentation unilat Dionte Christensen MD Start: 06-25-2014 End: 07-10-2014 Mri brain w/o dye iDonte Christensen MD Start: 06-25-2014 End: 10-03-2014 Remove impacted ear wax Dionte Christensen MD Start: 05-08-2014 End: 05-22-2014 25-Hydroxyvitamin D2+25-Hydroxyvitamin D3 [Mass/volume] in Serum or Plasma Dionte Christensen MD Start: 05-08-2014 End: 05-22-2014 Mammogram, Screening, both breasts Dionte Christensen MD Start: 05-08-2014 End: 05-22-2014 25-Hydroxyvitamin D2+25-Hydroxyvitamin D3 [Mass/volume] in Serum or Plasma Dionte Christensen MD Start: 05-08-2014 End: 05-22-2014 Mammogram, Screening, both breasts Dionte Christensen MD Start: 01-25-2014 End: 01-30-2014 *NIRU Christensen MD Start: 01-25-2014 End: 01-30-2014 25-Hydroxyvitamin D2+25-Hydroxyvitamin D3 [Mass/volume] in Serum or Plasma Dionte Christensen MD Start: 01-25-2014 End: 01-30-2014 *NIRU Christensen MD Start: 01-25-2014 End: 01-30-2014 25-Hydroxyvitamin D2+25-Hydroxyvitamin D3 [Mass/volume] in Serum or Plasma Dionte Christensen MD Start: 12-04-2013 End: 12-04-2013 Urinalysis Mandy Pereira RN Start: 12-04-2013 End: 05-22-2014 Urnls dip stick/tablet rgnt non-auto w/o micrscp Dionte Christensen MD Start: 12-04-2013 End: 10-03-2014 Us abdominal real time w/image limited Dionte Christensen MD Start: 12-04-2013 End: 10-03-2014 Echo exam of abdomen Dionte Christensen MD Start: 12-04-2013 End: 05-22-2014 Urinalysis nonauto w/o scope Dionte Christensen MD Start: 10-03-2013 End: 10-03-2013 STELLA Rowell MD Start: 10-03-2013 End: 10-03-2013 Ecg routine ecg w/least 12 lds w/i&r Maciel Rowell MD Start: 10-03-2013 End: 10-11-2013 Echocardiography Maciel Rowell MD Start: 10-03-2013 End: 10-03-2013 Follow Up Appt 1 year Maciel Rowell MD Start: 10-03-2013 End: 10-03-2013 STELLA Rowell MD Start: 10-03-2013 End: 10-11-2013 Echocardiography Maciel Rowell MD Start: 10-03-2013 End: 10-03-2013 Electrocardiogram, complete Maciel Tapia i, MD Start: 10-03-2013 End: 10-03-2013 Follow Up Appt 1 year Maciel Rowell MD Start: 09-28-2013 End: 05-22-2014 *CMP Complete Metabolic Panel Dionte Christensen MD Start: 09-28-2013 End: 11-05-2013 *UA - Urinalysis w/o Micro Dionte Christensen MD Start: 09-28-2013 End: 05-22-2014 CBC W Auto Differential panel - Blood Dionte Christensen MD Start: 09-28-2013 End: 02-05-2015 General examination of patient HEALTH MAINTENANCE EXAM Rox Ratliff PA-C Start: 09-28-2013 End: 05-22-2014 Lipid 1996 panel - Serum or Plasma Dionte Christensen MD Start: 09-28-2013 End: 05-22-2014 *CMP Complete Metabolic Panel Dionte Christensen MD Start: 09-28-2013 End: 11-05-2013 *UA - Urinalysis w/o Micro Dionte Christensen MD Start: 09-28-2013 End: 05-22-2014 CBC W Auto Differential panel - Blood Dionte Christensen MD Start: 09-28-2013 End: 02-05-2015 General examination of patient HEALTH MAINTENANCE EXAM Mandy Pereira RN Start: 09-28-2013 End: 05-22-2014 Lipid panel [AGGREGATE] Dionte Christensen MD Start: 06-29-2013 End: 10-03-2014 Bone density scan Dionte Christensen MD Start: 06-29-2013 End: 10-03-2014 Bone density scan Dionte Christensen MD Start: 03-21-2013 End: 05-22-2014 Mammogram, Screening, both breasts Dionte Christensen MD Start: 03-21-2013 End: 04-05-2013 Mri brain brain stem w/o contrast material Dionte Christensen MD Start: 03-21-2013 End: 08-13-2015 Screening mammography OTHER SCREENING MAMMOGRAM Rox Ratliff PA-C Start: 03-21-2013 End: 05-22-2014 Mammogram, Screening, both breasts Dionte Christensen MD Start: 03-21-2013 End: 04-05-2013 Mri brain w/o dye Dionte Christensen MD Start: 03-21-2013 End: 08-13-2015 Screening mammography OTHER SCREENING MAMMOGRAM Mandy Pereira RN Start: 12-20-2012 End: 03-06-2013 Lipid 1996 panel - Serum or Plasma Dionte Christensen MD Start: 12-20-2012 End: 03-06-2013 Lipid panel [AGGREGATE] Dionte Christensen MD Start: 10-06-2012 End: 10-10-2012 Surgery Referral Dionte Christensen MD Start: 10-06-2012 End: 10-10-2012 Surgery Referral Dionte Christensen MD Start: 08-16-2012 End: 10-06-2012 Hepatobiliary imaging Dionte Christensen MD Start: 08-16-2012 End: 10-06-2012 Hepatobiliary imaging Dionte Christensen MD Start: 08-02-2012 End: 08-14-2012 *Hepatic Function Panel Dionte Christensen MD Start: 08-02-2012 End: 08-10-2012 Amylase [Enzymatic activity/volume] in Serum or Plasma Dionte Christensen MD Start: 08-02-2012 End: 10-10-2012 Helicobacter pylori IgG Ab [Units/volume] in Serum Dionte Christensen MD Start: 08-02-2012 End: 08-10-2012 Lipase [Enzymatic activity/volume] in Serum or Plasma Dionte Christensen MD Start: 08-02-2012 End: 08-11-2012 Us abdominal real time w/image limited Dionte Christensen MD Start: 08-02-2012 End: 08-14-2012 *Hepatic Function Panel Dionte Christensen MD Start: 08-02-2012 End: 08-10-2012 Amylase Dionte Christensen MD Start: 08-02-2012 End: 08-11-2012 Echo exam of abdomen Dionte Christensen MD Start: 08-02-2012 End: 10-10-2012 Helicobacter pylori IgG Ab [Units/volume] in Serum Dionte Christensen MD Start: 08-02-2012 End: 08-10-2012 Lipase Dionte Christensen MD Start: 04-14-2012 End: 05-22-2014 Creatine kinase mb fraction only Dionte Christensen MD Start: 04-14-2012 End: 04-14-2012 Follow Up Appt 3 months Dionte Christensen MD Start: 04-14-2012 End: 05-04-2012 Mri brain brain stem w/o w/contrast material Dionte Christensen MD Start: 04-14-2012 End: 05-22-2014 Creatine, MB fraction Dionte Christensen MD Start: 04-14-2012 End: 04-14-2012 Follow Up Appt 3 months Dionte Christensen MD Start: 04-14-2012 End: 05-04-2012 Mri brain w/o & w/dye Dionte Christensen MD Start: 01-13-2012 End: 05-09-2012 *Hepatic Function Panel Wander Dowell Start: 01-13-2012 End: 05-09-2012 Lipid 1996 panel - Serum or Plasma Wander Reeves MD Start: 01-13-2012 End: 05-09-2012 *Hepatic Function Panel Wander Dowell Start: 01-13-2012 End: 05-09-2012 Lipid panel [AGGREGATE] Wander Dowell Start: 10-13-2010 End: 10-13-2010 Colonoscopy Mandy Pereira RN Start: 05-22-2010 End: 06-12-2010 *Thyroid Profile (T3,T4,TSH) Wander Reeves MD Start: 05-22-2010 End: 06-12-2010 Arterial exam Wander Reeves MD Start: 05-22-2010 End: 06-12-2010 Hepatic function panel Wander Reeves MD Start: 05-22-2010 End: 06-12-2010 Lipid panel Wander Reeves MD Start: 05-22-2010 End: 06-12-2010 *Thyroid Profile (T3,T4,TSH) Wander Reeves MD Start: 05-22-2010 End: 06-12-2010 Arterial exam Wander Reeves MD Start: 05-22-2010 End: 06-12-2010 Hepatic function panel Wander Reeves MD Start: 05-22-2010 End: 06-12-2010 Lipid panel Wander Reeves MD Start: 12-30-2009 End: 02-19-2010 Assay of thyroid stimulating hormone tsh Wander Reeves MD Start: 12-30-2009 End: 02-19-2010 Assay of thyroxine total Wander Reeves MD Start: 12-30-2009 End: 02-19-2010 Assay of triiodothyronine t3 total tt3 Wander Reeves MD Start: 12-30-2009 End: 02-19-2010 Comprehensive metabolic panel Wander Reeves MD Start: 12-30-2009 End: 02-19-2010 Lipid panel Wander Reeves MD Start: 12-30-2009 End: 02-19-2010 Assay of total thyroxine Wander Reeves MD Start: 12-30-2009 End: 02-19-2010 Assay thyroid stim hormone Wander maloney MD Start: 12-30-2009 End: 02-19-2010 Assay, triiodothyronine (t3) Wander Reeves MD Start: 12-30-2009 End: 02-19-2010 Comprehen metabolic panel Wander Reeves MD Start: 12-30-2009 End: 02-19-2010 Lipid panel Wander Reeves MD Start: 10-03-2006 CYTOLOGY NON-CURVE CLEANER, CONVERTED Jolly Mat Castellon Work Phone: Plan of Treatment Date Care Activity Detail Author Start: 04-29-2023 Influenza vaccination Influ[facility]ine [facility] Start: 08-29-2022 Depression Assessment Depression Assessment [facility] Start: 02-09-2022 Lipid 1996 panel - Serum or Plasma Lipid Screening [facility] Start: 04-29-2020 Influenza vaccination given [facility] Start: 03-05-2020 End: 03-05-2020 Office Visit 03/05/2020 Office Visit Orthopedic Surgery Mannie Chowdhury MD [address] [facility] [place] [address] [phone] [facility] Start: 02-13-2020 End: 02-13-2020 Clinical Support 02/13/2020 Clinical Support Sports Medicine Becky Peralta, OUTSIDE INDUSTRIAL SALES REPRESENTATIVE [address] [facility] [address] [place] [address] [phone] [facility] [place] Start: 07-25-2019 End: 07-25-2019 Office Visit 07/25/2019 Office Visit Orthopedic Surgery Mannie Chowdhury MD [address] [place] [address] [phone] [facility] Start: 04-29-2019 Influenza vaccination given [facility] Start: 11-01-2018 End: 11-01-2018 Ambulatory 11/01/2018 Office Visit Orthopedic Surgery Mannie Chowdhury MD [address] [place] [address] [phone] [facility] Start: 07-05-2018 End: 07-05-2018 Ambulatory 07/05/2018 Office Visit Orthopedic Surgery Mannie Chowdhury MD [address] [place] [address] [phone] [facility] Start: 04-29-2018 Influenza vaccination [facility] Start: 04-19-2018 Ambulatory 04/19/2018 Office Visit Orthopedic Surgery Mannie Chowdhury MD [facility] [place] [address] [phone] [facility] Start: 02-08-2018 End: 02-08-2018 Appointment Appointment [facility] Work Phone: Start: 12-01-2017 End: 06-02-2017 *Hepatic Function Panel *Hepatic Function Panel [facility] Work Phone: Start: 12-01-2017 End: 06-02-2017 Lipid 1996 panel *Lipid Profile CC PCP [facility] Work Phone: Start: 04-29-2017 Influenza vaccination SEQUENTIAL INFLUENZA VACCINE (#1) [facility] Start: 03-14-2017 End: 03-14-2017 Appointment Appointment [facility] Work Phone: Start: 02-15-2017 End: 02-15-2017 Appointment Appointment [facility] Work Phone: Start: 02-09-2017 End: 06-02-2017 *Hepatic Function Panel *Hepatic Function Panel [facility] Work Phone: Start: 02-09-2017 End: 02-09-2017 Follow Up Appt 1 year Follow Up Appt 1 year [facility] Work Phone: Start: 02-09-2017 End: 06-02-2017 Lipid 1996 panel *Lipid Profile CC PCP [facility] Work Phone: Start: 02-09-2017 End: 02-09-2017 MMM MMM [facility] Work Phone: Start: 02-09-2017 End: 02-09-2017 Appointment Appointment [facility] Work Phone: Start: 02-09-2017 End: 02-09-2017 *Hepatic Function Panel *Hepatic Function Panel [facility] Work Phone: Start: 02-09-2017 End: 02-09-2017 Follow Up Appt 1 year Follow Up Appt 1 year [facility] Work Phone: Start: 02-09-2017 End: 02-09-2017 Lipid panel [AGGREGATE] *Lipid Profile CC PCP [facility] Work Phone: Start: 02-09-2017 End: 02-09-2017 MMM MMM [facility] Work Phone: Start: 01-31-2017 End: 01-31-2017 Appointment Appointment [facility] Work Phone: Start: 01-31-2017 End: 01-31-2017 Appointment Appointment [facility] Work Phone: Start: 01-25-2017 End: 01-25-2017 Appointment Appointment [facility] Work Phone: Start: 01-25-2017 End: 01-25-2017 Appointment Appointment [facility] Work Phone: Start: 01-06-2017 End: 12-16-2016 *Hepatic Function Panel *Hepatic Function Panel [facility] Work Phone: Start: 01-06-2017 End: 12-16-2016 Lipid 1996 panel *Lipid Profile CC PCP [facility] Work Phone: Start: 01-06-2017 End: 12-16-2016 *Hepatic Function Panel *Hepatic Function Panel [facility] Work Phone: Start: 01-06-2017 End: 12-16-2016 Lipid panel [AGGREGATE] *Lipid Profile CC PCP [facility] Work Phone: Start: 01-03-2017 End: 01-03-2017 Appointment Appointment [facility] Work Phone: Start: 09-17-2016 Screening mammography Mammogram [facility] Start: 09-14-2016 End: 12-16-2016 Ct upper extremity w/o contrast material CT Upper Extremity [facility] Work Phone: Start: 09-14-2016 End: 12-16-2016 Ct upper extremity w/o dye CT Upper Extremity [facility] Work Phone: Start: 07-14-2016 End: 11-24-2016 *Hepatic Function Panel *Hepatic Function Panel [facility] Work Phone: Start: 07-14-2016 End: 07-14-2016 Follow Up Appt 6 months Follow Up Appt 6 months [facility] Work Phone: Start: 07-14-2016 End: 11-24-2016 Lipid 1996 panel *Lipid Profile CC PCP [facility] Work Phone: Start: 07-14-2016 End: 07-14-2016 [facility] Work Phone: Start: 07-14-2016 End: 11-24-2016 *Hepatic Function Panel *Hepatic Function Panel [facility] Work Phone: Start: 07-14-2016 End: 07-14-2016 Follow Up Appt 6 months Follow Up Appt 6 months [facility] Work Phone: Start: 07-14-2016 End: 11-24-2016 Lipid panel [AGGREGATE] *Lipid Profile CC PCP [facility] Work Phone: Start: 07-14-2016 End: [facility]-2016 [facility] Work Phone: Start: 02-18-2016 End: 12-16-2016 Mri any jt upper extremity w/o contrast matrl MRI Joint Upper Extremity [facility] Work Phone: Start: 02-18-2016 End: 12-16-2016 Mri joint upr extrem w/o dye MRI Joint Upper Extremity [facility] Work Phone: Start: 09-18-2015 End: 09-22-2015 Orthopedic Referral Orthopedic Referral Darrius Gamez DO, [facility], [address] [place] [address], [address], [place], [address] [facility] Work Phone: Start: 09-18-2015 End: 09-22-2015 Orthopedic Referral Orthopedic Referral Darrius Gamez DO, [facility], [address], [address], [place], [address] [facility] Work Phone: Start: 09-15-2015 End: 09-17-2015 Radex shoulder complete minimum 2 views X-Ray, Shoulder [facility] Work Phone: Start: 09-15-2015 End: 09-17-2015 Radex spine cervical 2 or 3 views X-Ray, Spine, Cervical [facility] Work Phone: Start: 09-15-2015 End: 09-17-2015 X-ray exam of neck spine X-Ray, Spine, Cervical [facility] Work Phone: Start: 09-15-2015 End: 09-17-2015 X-ray exam of shoulder X-Ray, Shoulder [facility] Work Phone: Start: 08-13-2015 End: 09-17-2015 *CMP Complete Metabolic Panel *CMP Complete Metabolic Panel [facility] Work Phone: Start: 08-13-2015 End: 09-17-2015 25-Hydroxyvitamin D2+25-Hydroxyvitamin D3 mass conc *Vitamin D (Calciferol) [facility] Work Phone: Start: 08-13-2015 End: 09-18-2015 Lipid 1996 panel *Lipid Profile [facility] Work Phone: Start: 08-13-2015 End: 09-17-2015 T4 free mass conc *T4 free [facility] Work Phone: Start: 08-13-2015 End: 09-17-2015 Thyrotropin Qn *TSH [facility] Work Phone: Start: 08-13-2015 End: 09-17-2015 *CMP Complete Metabolic Panel *CMP Complete Metabolic Panel [facility] Work Phone: Start: 08-13-2015 End: 09-17-2015 25-Hydroxyvitamin D2+25-Hydroxyvitamin D3 [Mass/volume] in Serum or Plasma *Vitamin D (Calciferol) [facility] Work Phone: Start: 08-13-2015 End: 09-18-2015 Lipid panel [AGGREGATE] *Lipid Profile [facility] Work Phone: Start: 08-13-2015 End: 09-17-2015 Thyroid stimulating hormone (TSH) *TSH [facility] Work Phone: Start: 08-13-2015 End: 09-17-2015 Thyroxine (T4) free *T4 free [facility] Work Phone: Start: 06-05-2015 End: 09-17-2015 Chest x-ray X-Ray, Chest, PA & Lateral [facility] Work Phone: Start: 06-05-2015 End: 09-17-2015 Chest x-ray X-Ray, Chest, PA & Lateral [facility] Work Phone: Start: 05-07-2015 End: 09-17-2015 Mammogram, screening Mammogram, Screening, both breasts [facility] Work Phone: Start: 05-07-2015 End: 09-17-2015 Mammogram, screening Mammogram, Screening, both breasts [facility] Work Phone: Start: 04-14-2015 End: 09-17-2015 EMG EMG [facility] Work Phone: Start: 04-14-2015 End: 09-17-2015 Nerve Conduction Nerve Conduction [facility] Work Phone: Start: 04-14-2015 End: 09-17-2015 EMG EMG [facility] Work Phone: Start: 04-14-2015 End: 09-17-2015 Nerve Conduction Nerve Conduction [facility] Work Phone: Start: 04-11-2015 End: 09-17-2015 EMG EMG [facility] Work Phone: Start: 04-11-2015 End: 09-17-2015 Nerve Conduction Nerve Conduction [facility] Work Phone: Start: 04-11-2015 End: 09-17-2015 EMG EMG [facility] Work Phone: Start: 04-11-2015 End: 09-17-2015 Nerve Conduction Nerve Conduction [facility] Work Phone: Start: 02-05-2015 End: 09-17-2015 Other Referral Other Referral [facility] Work Phone: Start: 02-05-2015 End: 09-17-2015 Other Referral Other Referral [facility] Work Phone: Start: 10-16-2014 End: 10-23-2014 *CMP Complete Metabolic Panel *CMP Complete Metabolic Panel [facility] Work Phone: Start: 10-16-2014 End: 10-23-2014 25-Hydroxyvitamin D2+25-Hydroxyvitamin D3 mass conc *Vitamin D (Calciferol) [facility] Work Phone: Start: 10-16-2014 End: 10-23-2014 Lipid 1996 panel *Lipid Profile [facility] [facility] Work Phone: Start: 10-16-2014 End: 10-16-2014 Surgery Referral Surgery Referral Sari Ronquillo, [facility], [address], [place], [address] [facility] Work Phone: Start: 10-16-2014 End: 10-30-2014 Thyroid uptake single/multiple quant measurement Thyroid uptake, single or multiple measurement(s) [facility] Work Phone: Start: 10-16-2014 End: 10-23-2014 *CMP Complete Metabolic Panel *CMP Complete Metabolic Panel [facility] Work Phone: Start: 10-16-2014 End: 10-23-2014 25-Hydroxyvitamin D2+25-Hydroxyvitamin D3 [Mass/volume] in Serum or Plasma *Vitamin D (Calciferol) [facility] Work Phone: Start: 10-16-2014 End: 10-23-2014 Lipid panel [AGGREGATE] *Lipid Profile [facility] Work Phone: Start: 10-16-2014 End: 10-16-2014 Surgery Referral Surgery Referral Sari Ronquillo, [facility], [address], [place], [address] [facility] Work Phone: Start: 10-16-2014 End: 10-30-2014 Thyroid uptake measurement Thyroid uptake, single or multiple measurement(s) [facility] Work Phone: Start: 10-02-2014 End: 10-03-2014 Thyrotropin Qn *TSH [facility] Work Phone: Start: 10-02-2014 End: 10-03-2014 Thyroid stimulating hormone (TSH) *TSH [facility] Work Phone: Start: 10-01-2014 End: 10-01-2014 PROFESSOR OF VOICE [facility] Work Phone: Start: 10-01-2014 End: 10-01-2014 Follow Up Appt 1 year Follow Up Appt 1 year [facility] Work Phone: Start: 10-01-2014 End: 10-01-2014 PROFESSOR OF VOICE PROFESSOR OF VOICE [facility] Work Phone: Start: 10-01-2014 End: 10-01-2014 Follow Up Appt 1 year Follow Up Appt 1 year [facility] Work Phone: Start: 09-12-2014 End: 10-03-2014 Us soft tissue head & neck real time imge docm US Thyroid (Soft tissue neck) [facility] Work Phone: Start: 09-12-2014 End: 10-03-2014 Us exam of head and neck US Thyroid (Soft tissue neck) [facility] Work Phone: Start: 06-25-2014 End: 07-10-2014 Mri brain brain stem w/o contrast material [facility] Work Phone: Start: 06-25-2014 End: 10-03-2014 Removal impacted cerumen instrumentation unilat Ear wax removal [facility] Work Phone: Start: 06-25-2014 End: 07-10-2014 Mri brain w/o dye MRI Brain [facility] Work Phone: Start: 06-25-2014 End: 10-03-2014 Remove impacted ear wax Ear wax removal [facility] Work Phone: Start: 05-08-2014 End: 05-22-2014 25-Hydroxyvitamin D2+25-Hydroxyvitamin D3 mass conc *Vitamin D (Calciferol) [facility] Work Phone: Start: 05-08-2014 End: 05-22-2014 Mammogram, Screening, both breasts Mammogram, Screening, both breasts [facility] Work Phone: Start: 05-08-2014 End: 05-22-2014 25-Hydroxyvitamin D2+25-Hydroxyvitamin D3 [Mass/volume] in Serum or Plasma *Vitamin D (Calciferol) [facility] Work Phone: Start: 05-08-2014 End: 05-22-2014 Mammogram, Screening, both breasts Mammogram, Screening, both breasts [facility] Work Phone: Start: 01-25-2014 End: 01-30-2014 *BMP *[facility] Work Phone: Start: 01-25-2014 End: 01-30-2014 25-Hydroxyvitamin D2+25-Hydroxyvitamin D3 mass conc *Vitamin D (Calciferol) [facility] Work Phone: Start: 01-25-2014 End: 01-30-2014 *BMP *BMP [facility] Work Phone: Start: 01-25-2014 End: 01-30-2014 25-Hydroxyvitamin D2+25-Hydroxyvitamin D3 [Mass/volume] in Serum or Plasma *Vitamin D (Calciferol) [facility] Work Phone: Start: 12-04-2013 End: 05-22-2014 Urnls dip stick/tablet rgnt non-auto w/o micrscp UA Dipstick (Office) [facility] Work Phone: Start: 12-04-2013 End: 10-03-2014 Us abdominal real time w/image limited US Abdomen, limited [facility] Work Phone: Start: 12-04-2013 End: 10-03-2014 Echo exam of abdomen US Abdomen, limited [facility] Work Phone: Start: 12-04-2013 End: 05-22-2014 Urinalysis nonauto w/o scope UA Dipstick (Office) [facility] Work Phone: Start: 10-03-2013 End: 10-03-2013 [facility] Work Phone: Start: 10-03-2013 End: 10-03-2013 Ecg routine ecg w/least 12 lds w/i&r EKG (In office) [facility] Work Phone: Start: 10-03-2013 End: 10-03-2013 Echocardiography Echocardiogram (complete) [facility] Work Phone: Start: 10-03-2013 End: 10-03-2013 Follow Up Appt 1 year Follow Up Appt 1 year [facility] Work Phone: Start: 10-03-2013 End: 10-03-2013 [facility] Work Phone: Start: 10-03-2013 End: 10-03-2013 Echocardiography Echocardiogram (complete) [facility] Work Phone: Start: 10-03-2013 End: 10-03-2013 Electrocardiogram, complete EKG (In office) [facility] Work Phone: Start: 10-03-2013 End: 10-03-2013 Follow Up Appt 1 year Follow Up Appt 1 year [facility] Work Phone: Start: 09-28-2013 End: 11-05-2013 *CMP Complete Metabolic Panel *CMP Complete Metabolic Panel [facility] Work Phone: Start: 09-28-2013 End: 11-05-2013 *UA - Urinalysis w/o Micro *UA - Urinalysis w/o Micro [facility] Work Phone: Start: 09-28-2013 End: 11-05-2013 CBC W Auto Differential panel - Blood *CBC without Diff [facility] Work Phone: Start: 09-28-2013 End: 11-05-2013 Lipid 1996 panel *Lipid Profile [facility] Work Phone: Start: 09-28-2013 End: 11-05-2013 *CMP Complete Metabolic Panel *CMP Complete Metabolic Panel [facility] Work Phone: Start: 09-28-2013 End: 11-05-2013 *UA - Urinalysis w/o Micro *UA - Urinalysis w/o Micro [facility] Work Phone: Start: 09-28-2013 End: 11-05-2013 CBC W Auto Differential panel - Blood *CBC without Diff [facility] Work Phone: Start: 09-28-2013 End: 11-05-2013 Lipid panel [AGGREGATE] *Lipid Profile [facility] Work Phone: Start: 06-29-2013 End: 10-03-2014 Bone density scan Bone Density Study [facility] Work Phone: Start: 06-29-2013 End: 10-03-2014 Bone density scan Bone Density Study [facility] Work Phone: Start: 03-21-2013 End: 05-22-2014 Mammogram, Screening, both breasts Mammogram, Screening, both breasts [facility] Work Phone: Start: 03-21-2013 End: 04-05-2013 Mri brain brain stem w/o contrast material MRI Brain [facility] Work Phone: Start: 03-21-2013 End: 05-22-2014 Mammogram, Screening, both breasts Mammogram, Screening, both breasts [facility] Work Phone: Start: 03-21-2013 End: 04-05-2013 Mri brain w/o dye MRI Brain [facility] Work Phone: Start: 12-20-2012 End: 03-06-2013 Lipid 1996 panel *Lipid Profile [facility] Work Phone: Start: 12-20-2012 End: 03-06-2013 Lipid panel [AGGREGATE] *Lipid Profile [facility] Work Phone: Start: 10-06-2012 End: 10-10-2012 Surgery Referral Surgery Referral Boone Caldwell MD, [facility], Formerly [facility] [address], [address] [facility], [place], [address] Formerly N[facility] Work Phone: Start: 10-06-2012 End: 10-10-2012 Surgery Referral Surgery Referral Boone Caldwell MD, [facility], [address], [address], [place], [address] [facility] Work Phone: Start: 08-16-2012 End: 10-06-2012 Hepatobiliary imaging NM HIDA Scan with [facility] Work Phone: Start: 08-16-2012 End: 10-06-2012 Hepatobiliary imaging NM HIDA Scan with EF [facility] [place] Work Phone: Start: 08-02-2012 End: 08-14-2012 *Hepatic Function Panel *Hepatic Function Panel [facility] Work Phone: Start: 08-02-2012 End: 08-10-2012 Amylase enzyme act/vol *Amylase - Serum [facility] Work Phone: Start: 08-02-2012 End: 10-10-2012 H. pylori IgG Qn (S) *Helicobacter pylori [facility] Work Phone: Start: 08-02-2012 End: 08-10-2012 Lipase enzyme act/vol *Lipase [facility] Work Phone: Start: 08-02-2012 End: 08-11-2012 Us abdominal real time w/image limited US Abdomen, limited [facility] Work Phone: Start: 08-02-2012 End: 08-14-2012 *Hepatic Function Panel *Hepatic Function Panel [facility] Work Phone: Start: 08-02-2012 End: 08-10-2012 Amylase *Amylase - Serum [facility] Work Phone: Start: 08-02-2012 End: 08-11-2012 Echo exam of abdomen US Abdomen, limited [facility] Work Phone: Start: 08-02-2012 End: 10-10-2012 Helicobacter pylori IgG Ab [Units/volume] in Serum *Helicobacter pylori [facility] Work Phone: Start: 08-02-2012 End: 08-10-2012 Lipase *Lipase [facility] Work Phone: Start: 04-14-2012 End: 05-22-2014 Creatine kinase mb fraction only CPK [facility] Work Phone: Start: 04-14-2012 End: 04-14-2012 Follow Up Appt 3 months Follow Up Appt 3 months [facility] Work Phone: Start: 04-14-2012 End: 04-14-2012 Mri brain brain stem w/o w/contrast material MRI Brain with Contrast [facility] Work Phone: Start: 04-14-2012 End: 05-22-2014 Creatine, MB fraction CPK [facility] Work Phone: Start: 04-14-2012 End: 04-14-2012 Follow Up Appt 3 months Follow Up Appt 3 months [facility] Work Phone: Start: 04-14-2012 End: 04-14-2012 Mri brain w/o & w/dye MRI Brain with Contrast [facility] Work Phone: Start: 01-13-2012 End: 05-09-2012 *Hepatic Function Panel *Hepatic Function Panel [facility] Work Phone: Start: 01-13-2012 End: 05-09-2012 Lipid 1996 panel *Lipid Profile [facility] Work Phone: Start: 01-13-2012 End: 05-09-2012 *Hepatic Function Panel *Hepatic Function Panel [facility] Work Phone: Start: 01-13-2012 End: 05-09-2012 Lipid panel [AGGREGATE] *Lipid Profile [facility] Work Phone: Start: 05-22-2010 End: 06-12-2010 *Thyroid Profile (T3,T4,TSH) *Thyroid Profile (T3,T4,TSH) [facility] Work Phone: Start: 05-22-2010 End: 06-12-2010 Arterial exam Arterial exam [facility] Work Phone: Start: 05-22-2010 End: 06-12-2010 Hepatic function panel *Liver/Hepatic Function Panel [facility] Work Phone: Start: 05-22-2010 End: 06-12-2010 Protein mass conc *Lipid Profile [facility] Work Phone: Start: 05-22-2010 End: 06-12-2010 *Thyroid Profile (T3,T4,TSH) *Thyroid Profile (T3,T4,TSH) [facility] Work Phone: Start: 05-22-2010 End: 06-12-2010 Arterial exam Arterial exam [facility] Work Phone: Start: 05-22-2010 End: 06-12-2010 Hepatic function panel *Liver/Hepatic Function Panel [facility] Work Phone: Start: 05-22-2010 End: 06-12-2010 Lipid panel *Lipid Profile [facility] Work Phone: Start: 05-22-2010 End: 06-12-2010 Protein mass conc *Lipid Profile [facility] Work Phone: Start: 12-30-2009 End: 02-19-2010 Assay of thyroxine total *T4 (Total) [facility] Work Phone: Start: 12-30-2009 End: 02-19-2010 Assay of triiodothyronine t3 total tt3 *T3-Total [facility] Work Phone: Start: 12-30-2009 End: 02-19-2010 Comprehensive metabolic panel *CMP Complete Metabolic Panel [facility] Work Phone: Start: 12-30-2009 End: 02-19-2010 Protein mass conc *Lipid Profile [facility] Work Phone: Start: 12-30-2009 End: 02-19-2010 Thyrotropin Qn *TSH [facility] Work Phone: Start: 12-30-2009 End: 02-19-2010 Assay of total thyroxine *T4 (Total) [facility] Work Phone: Start: 12-30-2009 End: 02-19-2010 Assay, triiodothyronine (t3) *T3-Total [facility] Work Phone: Start: 12-30-2009 End: 02-19-2010 Comprehen metabolic panel *CMP Complete Metabolic Panel [facility] Work Phone: Start: 12-30-2009 End: 02-19-2010 Lipid panel *Lipid Profile [facility] Work Phone: Start: 12-30-2009 End: 02-19-2010 Protein mass conc *Lipid Profile [facility] Work Phone: Start: 12-30-2009 End: 02-19-2010 Thyroid stimulating hormone (TSH) *TSH [facility] Work Phone: Start: 2009 Administration of herpes zoster vaccine Zoster Vaccines (1 of 2) [facility] Start: 2009 Screening for malignant neoplasm of colon [facility] Start: 2009 Shingrix Vaccine (1 of 2) Shingrix Vaccine (1 of 2) [facility] Start: 01-30-2004 Cologuard (FIT-DNA) Cologuard (FIT-DNA) [facility] Start: 01-30-2004 Colonoscopy Colonoscopy [facility] Start: 01-30-2004 Colorectal Cancer Screening Colorectal Cancer Screening [facility] Start: 01-30-[address] COLONOGRAPHY [facility] Start: 01-30-2004 Diabetes Screening Diabetes Screening [facility] Start: 01-30-2004 Fecal Occult Blood Fecal Occult Blood [facility] Start: 01-30-2004 SIGMOIDOSCOPY SIGMOIDOSCOPY [facility] Start: 1999 Mammography Mammogram Screening [facility] Start: 1989 HPV Testing HPV Testing [facility] Start: 01-30-1980 Pap Testing Pap Testing [facility] Start: 1978 Urine microalbumin profile DTaP,Tdap,Td Vaccine (1 - Tdap) [facility] Start: 1977 Hepatitis C antibody, confirmatory test Hepatitis C Screening [facility] Start: 1977 Hepatitis C Screening Hepatitis C Screening [facility] Start: 1977 HIV Screening HIV Screening [facility] Start: 1975 COVID-19 Vaccine (1 of 2) COVID-19 Vaccine (1 of 2) [facility] Start: 1974 HIV screening HIV Screening [facility] Start: 1971 Adolescent depression screening assessment Depression Screening (PHQ9) [facility] Start: 1962 History and physical examination, annual for health maintenance Wellness Visit [facility] Start: 1959 Covid-19 Vaccine (#1) Covid-19 Vaccine (#1) [facility] Start: 1959 Depression screening using PHQ-9 (Patient Health Questionnaire 9) score Depression Screening (PHQ9) [facility] Start: 1959 Hepatitis C antibody, confirmatory test HEPATITIS C SCREENING [facility] Start: 1959 Protein mass conc Mammogram [facility] Start: 1959 Screening for malignant neoplasm of colon Colorectal Cancer Screening: Colonoscopy [facility] Start: 1959 Screening mammography Mammogram [facility] Start: 1959 HEPATITIS C SCREENING HEPATITIS C SCREENING [facility] Start: 1959 Screening colonoscopy COLONOSCOPY [facility] Start: 1959 End: 1959 Screening for malignant neoplasm of cervix PAP SMEAR [facility] Start: 1959 End: 1959 Tetanus vaccination [facility] End: 10-20-2018 CRP, Inflammation CRP, Inflammation Routine Rheumatoid arthritis involving multiple sites, unspecified rheumatoid factor presence (HCC) 1 Occurrences starting 10/19/2017 until 10/20/2018 [facility] End: 10-20-2018 Erythrocyte sedimentation rate Sedimentation Rate Routine Rheumatoid arthritis involving multiple sites, unspecified rheumatoid factor presence (HCC) 1 Occurrences starting 10/19/2017 until 10/20/2018 [facility] Patient Education HYPERLIPIDEMIA , HYPERLIPIDEMIA [facility] Work Phone: Immunizations Immunization Date Immunization Notes Care Provider Siena knight 06-25-2014 varicella zoster imm une globulin; Translations: [ZOSTER VACCINE LIVE] Rox Ratliff PA-C [facility] Work Phone: 06-25-2014 varicella zoster imm une globulin; Translations: [ZOSTER VACCINE LIVE] Mandy Pereira RN [facility] Work Phone: Payers Date Payer Category Payer Unknown [id number] Unknown xxxxxxxxxxxx [id number] 2014 Unknown [id number] 2014 Unknown LIZETTEZENIA JOSE DE JESUS MURILLO/SRAVAN/HMO/PPO [id number] 2014-Present [id number] 1959 Unknown [id number] 3 1959 Unknown [id number] 3 1959 Unknown [id number] 3 1959 Unknown [id number] 3 1959 Unknown [id number] 3 1959 Unknown [id number] 3 1959 Unknown [id number] 3 1959 Unknown [id number] 3 Social History Date Type Detail Facility Start: 01-25-2018 End: 09-05-2019 Tobacco smoking status IDIS Never smoker [facility] Start: 1960 Sex Assigned At Not on file [facility] Start: 09-05-2019 End: 09-26-2019 Alcohol intake Current non-drinker of alcohol (finding) [facility] Start: 01-17-2022 End: 01-27-2022 Exposure to SARS-CoV-2 (event) Not sure [facility] Start: 02-20-2020 Tobacco use and exposure Never used [facility] Tobacco smoking consumption unknown [facility] Gender identity Not on file [facility] inic Assessments Diagnosis Rheumatoid arthritis involvi ng multiple sites, unspecified rheumatoid factor presence (HCC) - Primary Diagnosis Rheumatoid arthritis involvi ng multiple sites, unspecified rheumatoid factor presence (HCC) Diagnosis Rheumatoid arthritis involvi ng multiple sites, unspecified rheumatoid factor presence (HCC) Diagnosis Rheumatoid arthritis involving multiple sites, unspecified rheumatoid factor presence (HCC)- Primary Pain of right great toe Diagnosis Primary osteoarthritis of first carpometacarpal joint of right hand Diagnosis Primary osteoarthritis of first carpometacarpal joint of right hand Diagnosis Primary osteoarthritis of first carpometacarpal joint of right hand Diagnosis Arthritis of carpometacarpal (CMC) joint of left thumb Tenosynovitis, de Quervain Radial styloid tenosynovitis Diagnosis Primary osteoarthritis of first carpometacarpal joint of right hand Summary Purpose Family History No Family History Records FoundNo Family History Records FoundNo Family History Records FoundNo Family History Records FoundNo Family History Records FoundNo Family History Records FoundNo Family History Records FoundNo Family History Records FoundNo Family History Records Found Advance Directives Documents on File Type Date Recorded 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 Advance Directives and Living Will Documents on File Type Date Recorded 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 Advance Directives and Livin g Will 09/05/2019 3:52 PM Documents on File Type Date Recorded 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 Advance Directives and Livin g Will 01/23/2020 8:00 AM Documents on File Type Date Recorded 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 Advance Directives and Livin g Will 09/05/2019 3:52 PM Reason for Referral Status Reason Specialty Diagnoses / Procedures Referred By Contact Referred To Contact Authorized Specialty Services Required/[facility] Diagnoses Pain of right great toe Mannie Chowdhury MD [address] [place] [address] Albina Nazario MD [address] [id number] Status Reason Specialty Diagnoses / Procedures Referred By Contact Referred To Contact Authorized Specialty Services Required/[facility] Diagnoses Primary osteoarthritis of first carpometacarpal joint of right hand Mannie Chowdhury MD [address] [phone] Marcelo Mena MD [address] [facility] [address] [place] [address] History of Present Illness * Mannie Chowdhury MD - 01/17/2019 9:58 AM EDT [facility]. Name: Remi Carlson Date:01/17/19 [id number] :1960 Allergies: Topiramate Medications: Current Outpatient Medications: ALPRAZolam (XANAX) 0.5 MG tablet, , Disp: , Rfl: hrjdeldhae-ljxuodu-dkrldiwb (FIORINAL) 50-325-40 mg per capsule, , Disp: , Rfl: metoprolol-hydrochlorothiazide (LOPRESSOR HCT) 50-25 mg per tablet, , Disp: , Rfl: pravastatin (PRAVACHOL) 40 MG tablet, Take 40 mg by mouth daily ., Disp: , Rfl: VITAMIN D2 50,000 unit capsule, , Disp: , Rfl: atorvastatin (LIPITOR) 80 MG tablet, Take 80 mg by mouth daily., Disp: , Rfl: hydroxychloroquine (PLAQUENIL) 200 mg tablet, Take one pill twice a day ., Disp: 180 tablet, Rfl: 1 predniSONE (DELTASONE) 5 MG tablet, Take 2 pills a day for 2 or 3 days as needed for flares.., Disp: 100 tablet, Rfl: 0 rizatriptan (MAXALT) 10 MG tablet, Take 10 mg by mouth as needed., Disp: , Rfl: Chief Complaint: Patient here for rheumatoid arthritis evaluation Interim History: The patient was last seen in March 2018. She is taking Plaquenil 2 mg twice a day. She notes that she is tolerating medicine. However for the past 3 months or so she has noted pain at the base of the right thumb, pain in the right great toe and occasional pain in her knees. She has not had any major flareups with synovitis. She has morning stiffness lasting about 30 minutes. She did have a bad sinusitis which required antibiotic therapy. Otherwise she has had no major infections. She has been taking Aleve every 4 hours for these joint problems and is experiencing some stomach upset. Interim ROS: Eyes:_Patient had her eyes examined in November and no Plaquenil side effects were normal. ___ Derm:_Denies new dermatologic disease____ ENT:__Denies new ear nose and throat events___ Cardio:_Denies new cardiac conditions___ Pulm:_Denies new pulmonary problems____ G.I:_Denies new intestinal issues Renal:_Denies new renal disorders____ Hem/Onc:_No new hemologic oncologic diagnoses___ Interim Social History: No change Exams: The wrists have full range of motion with no synovitis. The left wrist is nontender. On the right, there is early squaring off deformity of the thumb CMC joint. It is tender to palpation and there alberto positive grind test. The right thumb IP joint shows bony enlargement. The MCPs and PIPs demonstrate no synovitis and are nontender. The patient make a tight fist bilaterally. Right great toe demonstrates no gross swelling. The IP joint has bony enlargement. The MTP joint isessentially motionless. It is not tender to palpation. Interim Lab Review: No recent labs to review. The 2018 lab work shows a normal sedimentation rate and C-reactive protein Impression: 1. The patient's RA appears to be clinically quiet. 2. The right thumb demonstrates evidence of osteoarthritis of the CMC joint and the IP joint. 3. The patient does note that she is status post surgery of the right great toe and has a plate in place which is why it is motionless. Plan: 1. Discussed issues with the patient. She finds her right great toe pain to be very irritating and I did suggest that given that she has had surgery on it and has retained hardware, this would require a foot and ankle orthopedist to evaluate it appropriately. She is agreeable so we will set her up with a referral to Dr. Albina Nazario. 2. With respect to her thumb I indicated to her that she could have an injection, use topical agents or a splint. Also she should cut back on her Aleve and not take it any more than twice a day. She could use ibuprofen instead if she wished. Tylenol is also recommendable. She is using lidocaine geland icy hot topical agents on her thumb and she states she just bought a splint recently and can start wearing it soon. 3. We will obtain a BUN/creatinine today to check her renal function in view of the fact she has been on rather excessive doses of Aleve for the past 3 months. 4. More than 50% of the 15-minute office time today was spent counseling. I have asked her to remain on Plaquenil as is. 5. Return in 6 months or sooner as needed. Please note: Portions of this chart may have been created with [email or web address] voice recognition software. Occasional wrong-word or sound-like substitutions may have occurred due to inherent limitations of the voice recognition software. Please read the chart carefully and recognize, using context, where the substitutions have occurred. Mannie Chowdhury MD documented in this encounter* Becky Peralta CNP - 09/26/2019 10:16 AM EST Associated Order(s): SM Jt Injection/Arthrocentesis Post-Procedure Diagnose(s): Primary osteoarthritis of first carpometacarpal joint of right hand SM Jt Injection/Arthrocentesis Performed by: Becky Peralta CNP Authorized by: Becky Peralta CNP CPT 35699 - Small Joint Arthrocentesis: Consent given by: Patient Time out: Immediately prior to the procedure a time out was called Timeout performed at: 09/26/2019 10:16 AM Physician or proceduralist has discussed critical or nonroutine steps, procedure duration and anticipated blood loss: Yes Supporting Documentation: Indications: Pain Procedure Details: Location: Thumb Thumb joint: R thumb CMC. Prep: patient was prepped and draped in usual sterile fashion Needle size: 22 G Approach: Dorsal Medications: 40 mg triamcinolone acetonide 40 mg/mL Anesthetic used:: Bupivacaine 0.25% and Ethyl Chloride Anesthetic amount (mL): 1 Patient tolerance: Patient tolerated the procedure well with no immediate complications * Becky Peralta CNP - 09/26/2019 9:56 AM EST Remi Clifford Carlson 1960 CC: 59 y.o. is a she with Chief Complaint Patient presents with Right Hand - Pain Left Hand - Pain . Patient presents for evaluation of bilateral hand/finger pain, bilateral thumbs, more the right at this time. Onset was months ago. The pain is moderate, worsens with movement, and is relieved by rest. There is no associated numbness, tingling in her hands, just weakness in gripping strength. Evaluation to date: plain films: abnormal CMC arthritis. Treatment to date: corticosteroid injection which was ineffective by her physician in [place]. PMH: Allergies Allergen Reactions Topiramate Current Outpatient Medications: ALPRAZolam (XANAX) 0.5 MG tablet, , Disp: , Rfl: atorvastatin (LIPITOR) 80 MG tablet, Take 80 mg by mouth daily., Disp: , Rfl: icnygmrgtl-dwqocvd-jiiicfoy (FIORINAL) 50-325-40 mg per capsule, , Disp: , Rfl: metoprolol-hydrochlorothiazide (LOPRESSOR HCT) 50-25 mg per tablet, , Disp: , Rfl: pravastatin (PRAVACHOL) 40 MG tablet, Take 40 mg by mouth daily ., Disp: , Rfl: predniSONE (DELTASONE) 5 MG tablet, Take 2 pills a day for 2 or 3 days as needed for flares. ., Disp: 100 tablet, Rfl: 0 rizatriptan (MAXALT) 10 MG tablet, Take 10 mg by mouth as needed., Disp: , Rfl: VITAMIN D2 50,000 unit capsule, , Disp: , Rfl: hydroxychloroquine (PLAQUENIL) 200 mg tablet, Take one pill twice a day ., Disp: 180 tablet, Rfl: 1 Past Medical History: Diagnosis Date Disease of thyroid gland 2015 Hypertension Rheumatoid arthritis (HCC) Past Surgical History: Procedure Laterality Date FOOT SURGERY Right 2014 fused 2 bonesRt great toe ORIF R ankle SHOULDER SURGERY Left bone spur/rotator cuff THYROIDECTOMY Right 2014 Social History Socioeconomic History Marital status: Single Spouse name: Not on file Number of children: Not on file Years of education: Not on file Highest education level: Not on file Occupational History Not on file Social Needs Financial resource strain: Not on file Food insecurity Worry: Not on file Inability: Not on file Transportation needs Medical: Not on file Non-medical: Not on file Tobacco Use Smoking status: Never Smoker Smokeless tobacco: Never Used Substance and Sexual Activity Alcohol use: No Drug use: No Sexual activity: Not on file Lifestyle Physical activity Days per week: Not on file Minutes per session: Not on file Stress: Not on file Relationships Social connections Talks on phone: Not on file Gets together: Not on file Attends mu-ism service: Not on file Active member of club or organization: Not on file Attends meetings of clubs or organizations: Not on file Relationship status: Not on file Other Topics Concern Not on file Social History Narrative Not on file ROS: Review of Systems Constitutional: Negative for activity change and fatigue. HENT: Negative. Eyes: Negative. Respiratory: Negative for chest tightness and shortness of breath. Cardiovascular: Negative for chest pain. Gastrointestinal: Negative. Endocrine: Negative. Genitourinary: Negative. Musculoskeletal: Positive for arthralgias. Skin: Negative for color change. Allergic/Immunologic: Negative. Neurological: Negative for dizziness, light-headedness and numbness. Hematological: Negative. Psychiatric/Behavioral: Negative for agitation. PE: Physical Exam Constitutional: She is oriented to person, place, and time. She appears well- developed and well-nourished. HENT: Head: Normocephalic and atraumatic. Eyes: Pupils are equal, round, and reactive to light. Neck: Normal range of motion. Neck supple. Cardiovascular: Normal rate and regular rhythm. Pulmonary/Chest: Effort normal and breath sounds normal. Abdominal: Soft. Musculoskeletal: General: Tenderness present. Neurological: She is alert and oriented to person, place, and time. Skin: Skin is warm and dry. Psychiatric: She has a normal mood and affect. Her behavior is normal. Right Hand Exam Tenderness Right hand tenderness location: Thumb cmc. Range of Motion The patient has normal right wrist ROM. Muscle Strength Wrist extension: 5/5 Wrist flexion: 5/5 Automobile Service Station Manager: 4/5 Tests Phalen s Sign: negative Tinel's sign (median nerve): negative Shade's test: negative Other Erythema: absent Sensation: normal Pulse: present Comments: Positive grind test Scar on right wrist from DeQuervain surgery Left Hand Exam Tenderness Left hand tenderness location: thumb cmc. Range of Motion The patient has normal left wrist ROM. Muscle Strength Wrist extension: 5/5 Wrist flexion: 5/5 Automobile Service Station Manager: 5/5 Tests Phalen s Sign: negative Tinel's sign (median nerve): negative Shade's test: negative Other Erythema: absent Scars: absent Sensation: normal Pulse: present Comments: Positive grind test Imaging: FINDINGS: PA and ball catcher's view. Left hand: No acute fracture. Joint alignment is anatomic. Minimal degenerative spurring of the 1stIP joint. Soft tissues are within normal limits. Right hand: No acute fracture. Joint alignment is anatomic. Mild 1st CMC degenerative spurring and subchondral sclerosis. Mild degenerative spurring at the 1st interphalangeal joint. Soft tissues arewithin normal limits. IMPRESSION: No acute osseous abnormality. Mild osteoarthritic changes of the bilateral thumb interphalangeal joints. Mild left 1st CMC osteoarthritic changes. Diagnosis: Problem List Items Addressed This Visit None Visit Diagnoses Primary osteoarthritis of first carpometacarpal joint of right hand Plan: Discussed CMC arthritis with the patient and treatment options. She had a bad experience with a surgeon in [place] who said she was going to fix the CMC but did a tendon release for De Quervains, notsure the exact situation, and the patient is going to get her records from that office. Patient is interested in CMC arthroplasty if the injection does not help. Patient is wanting only her right cmcinjected today. Patient will follow up as needed. Patient understands and agrees to proceed. Follow Up: No follow-ups on file. Becky Peralta CNP documented in this encounter* Becky Peralta CNP - 01/09/2020 11:15 AM EDT Patient is 59 year old female who is here for a right CMC injection for osteoarthritis. Her last injection was on 09/26/2019 and it lasted about 2-3 months. Injection was given without difficulty andshe tolerated the injection well. Patient is wanting to possibly has the CMC arthroplasty done in April, she will let us know when she decides. Patient will follow up as needed. Patient understands and agrees to proceed. * Becky Peralta CNP - 01/09/2020 10:38 AM EDT Associated Order(s): SM Jt Injection/Arthrocentesis Post-Procedure Diagnose(s): Primary osteoarthritis of first carpometacarpal joint of right hand SM Jt Injection/Arthrocentesis Performed by: Becky Peralta CNP Authorized by: Becky Peralta CNP CPT 28165 - Small Joint Arthrocentesis: Consent given by: Patient Time out: Immediately prior to the procedure a time out was called Timeout performed at: 01/09/2020 10:39 AM Supporting Documentation: Indications: Pain Procedure Details: Location: Thumb Thumb joint: R thumb CMC. Prep: patient was prepped and draped in usual sterile fashion Needle size: 22 G Approach: Dorsal Medications: 40 mg triamcinolone acetonide 40 mg/mL Anesthetic used:: Ethyl Chloride Anesthetic amount (mL): 0 Patient tolerance: Patient tolerated the procedure well with no immediate complications documented in this encounter* Becky Peralta CNP - 01/23/2020 7:45 AM EDT Patient was here on 01/09/2020 and received a right CMC injection for osteoarthritis. She has been having pain in her thumb since the injection. No signs of infection. There is a small hard lump present in the CMC area and she rates the pain 4/10. Positive grind test, negative shade test. Xraydone today shows CMC arthritis and bone spurring, there is a small bone spur where the lump is felt. Patient is wanting to have the CMC arthroplasty done probably in April, she will come back in a few weeks for another injection. She is going to try voltaren gel or biofreeze to see if this helps with the pain. Patient will follow up in a few weeks for an injection. documented in this encounter* Becky Peralta CNP - 02/20/2020 8:12 AM EDT Associated Order(s): SM Jt Injection/Arthrocentesis Post-Procedure Diagnose(s): Arthritis of carpometacarpal (CMC) joint of left thumb SM Jt Injection/Arthrocentesis Performed by: Becky Peralta CNP Authorized by: Becky Peralta CNP CPT 28009 - Small Joint Arthrocentesis: Consent given by: Patient Time out: Immediately prior to the procedure a time out was called Timeout performed at: 02/20/2020 8:12 AM Physician or proceduralist has discussed critical or nonroutine steps, procedure duration and anticipated blood loss: Yes Supporting Documentation: Indications: Pain Procedure Details: Location: Thumb Thumb joint: L thumb CMC. Prep: patient was prepped and draped in usual sterile fashion Needle size: 22 G Approach: Dorsal Medications: 40 mg triamcinolone acetonide 40 mg/mL Anesthetic used:: Ethyl Chloride Anesthetic amount (mL): 0 Patient tolerance: Patient tolerated the procedure well with no immediate complications * Becky Peralta CNP - 02/20/2020 8:08 AM EDT Patient is here for an injection to the CMC joint of the left thumb. She has been seeing a new station inspector that has adjusted her medications and gave her thumb and hand exercises to do, which the patient states has been helping. She says she has wrist pain as well, which she has a history of DeQuervain tenosynovitis, and the MRI from last February shows this and it has not gotten any better. I am going to give her a thumbkeeper brace to wear to help with this. Patient is wanting to have CMC arthroplasty soon but not right now, informed her when she decides to do this we will set her up an appointment with Dr. Mena. Patient understands and agrees to proceed. Patient will follow up as needed. documented in this encounter* Mannie Chowdhury MD - 09/05/2019 4:50 PM [facility]. Name: Remi Carlson Date:09/05/19 [id number] :1960 Allergies: Topiramate Medications: Current Outpatient Medications: ALPRAZolam (XANAX) 0.5 MG tablet, , Disp: , Rfl: atorvastatin (LIPITOR) 80 MG tablet, Take 80 mg by mouth daily., Disp: , Rfl: vwwqkkaxwu-xubukmr-zqqgqjwu (FIORINAL) 50-325-40 mg per capsule, , Disp: , Rfl: metoprolol-hydrochlorothiazide (LOPRESSOR HCT) 50-25 mg per tablet, , Disp: , Rfl: pravastatin (PRAVACHOL) 40 MG tablet, Take 40 mg by mouth daily ., Disp: , Rfl: predniSONE (DELTASONE) 5 MG tablet, Take 2 pills a day for 2 or 3 days as needed for flares. ., Disp: 100 tablet, Rfl: 0 rizatriptan (MAXALT) 10 MG tablet, Take 10 mg by mouth as needed., Disp: , Rfl: VITAMIN D2 50,000 unit capsule, , Disp: , Rfl: hydroxychloroquine (PLAQUENIL) 200 mg tablet, Take one pill twice a day ., Disp: 180 tablet, Rfl: 1 Chief Complaint: Patient here for rheumatoid arthritis evaluation Interim History: The patient reports that her rheumatoid is doing well. Her major problem centers around the thumbs.She still having considerable difficulty with pain along the raise of the thumbs, especially on theright. She is having difficulty picking things up and grasping. She has had no major flares of the rheumatoid. She has had no major infections since her last visit. She did have to take several doses of prednisone to help with an occasional decrease in joint inflammation At the time of the patient's last visit, we did discuss referral to Dr. Mena. However the patientat that time decided to see an orthopedic surgeon in [place] which did not help. She apparently hasundergone several sets of intra-articular injections of the thumb CMC joints which only lasted anywhere from 3 days to 2 weeks. Interim ROS: Eyes:_Denies new ocular events___ Derm:_Denies new dermatologic disease____ ENT:_Denies new ear nose and throat events____ Cardio:_Denies new cardiac conditions___ Pulm:__Denies new pulmonary problems___ G.I:_Denies new intestinal issues Renal:_No new renal disorders noted____ Hem/Onc:_No new hematologic conditions noted___ Interim Social History: No change Exams: The wrists have good range of motion with no tenderness or swelling. There is a positive grind teston the right tenderness palpation of the right CMC joint. Left thumb grind test is negative. That joint is not tender. The MCPs and PIPs are nontender and without synovitis. Patient is able make a tight fist bilaterally. Interim Lab Review: Not applicable Impression: 1. 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 2. RA, clinically under good control at this time Plan: 1. X-rays of the hands and wrists are obtained. These are reviewed with the patient. The right thumb CMC joint does show narrowing with some minor osteophyte formation. The left thumb CMC joint showsless narrowing. The thumb IP joints both show osteoarthritic changes. 2. Reviewed situation with patient. 3. We will make a referral for the patient to see Dr. Mena. 4. Return to see me in 6 months. 5. More than 50% of the 15-minute office time today was spent counseling. Please note: Portions of this chart may have been created with [email or web address] voice recognition software. Occasional wrong-word or sound-like substitutions may have occurred due to inherent limitations of the voice recognition software. Please read the chart carefully and recognize, using context, where the substitutions have occurred. Mannie Chowdhury MD documented in this encounter Additional Source Comments INFORMATION SOURCE (unrecogn ized section and content) DATE CREATED AUTHOR AUTHOR'S ORGANIZ ATION 02/17/2018 [facility] DATE CREATED AUTHOR AUTHOR'S ORGANIZ ATION 09/10/2019 [facility] DATE CREATED AUTHOR AUTHOR'S ORGANIZ ATION 01/26/2020 [facility] DATE CREATED AUTHOR AUTHOR'S ORGANIZ ATION 03/17/2020 [facility] DATE CREATED AUTHOR AUTHOR'S ORGANIZ ATION 09/24/2021 [facility] DATE CREATED AUTHOR AUTHOR'S ORGANIZ ATION 11/29/2021 [facility] DATE CREATED AUTHOR AUTHOR'S ORGANIZ ATION 03/02/2022 [facility] [place] DATE CREATED AUTHOR AUTHOR'S ORGANIZ ATION 03/10/2022 [facility] Reason for Visit (unrecogniz ed section and content) Status Reason Specialty Diagnoses / Procedures Referred By Contact Referred To Contact Closed Specialty Services Required/[facility] Diagnoses Primary osteoarthritis of first carpometacarpal joint of right hand Mannie Chowdhury MD [address] [place] [address] Marcelo Mena MD [address] [place] [address] [address] [place] [address] Reason Comments Hand Pain right hand cmc injue ction <item> Privacy Markings (unrecogniz ed section and content) Section Author: Jacqueline Benítez PROHIBITION ON REDISCLOSURE OF CONFIDENTIAL INFORMATION This notice accompanies a disclosure of information concerning a client made to you with the consent of such client. Source Comments (unrecognize d section and content) In the event this informatio n is protected by the Federal Confidentiality of Alcohol and Drug Abuse Patient Records regulations: The Federal rules restrict any use of the information to criminally investigate or prosecute any alcohol or drug abuse patient.[facility] Care Teams (unrecognized sec tion and content) FOR RECORDS PERTAINING TO PATIENTS WHO ARE OR HAVE BEEN ENROLLED IN A CHEMICAL DEPENDENCY/SUBSTANCEABUSE PROGRAM, SOME INFORMATION MAY BE OMITTED. This clinical summary was aggregated from multiple sources. Caution should be exercised in using it in the provision of clinical care. This summary normalizes information from multiple sources, and as a consequence, information in this document may materially change the coding, format and clinical context of patient data. In addition, data may be omitted in some cases. CLINICAL DECISIONS SHOULD BE BASED ON THE PRIMARY CLINICAL RECORDS. [facility] [employer] [facility]. provides no warranty or guarantee of the accuracy or completeness of information in this document.
[2023-09-14 06:42] VITALS: BP 151/72; PULSE 73; RESP 18; TEMP 36.6; O2SAT 100; BMI 25.7
[2023-09-14] MEDS: Lactated Ringers 1,000 ML 15 ML IV (06:45)
--- NOTE | 2023-09-14 07:37 | HP.PCM_ITS ---
History and Physical Date of Admission: 09/14/23 63 F who presents to the office today for a follow-up visit after undergoing an a recent upper endoscopy. Prior workup: ? US 08.10.12 hepatic measurement 15.4cm, fatty infiltration, hepatic cyst [id number] ? Barium swallow 05.14.20 *BGI established 11.26.21 reports regular nausea with itching sensation in her throat and gagging for two months without change; no food trigger identified. Zofran and Amy-Gardiner helpful with nausea. Postprandial LUQ abdominal discomfort/pain with bloating following ingestion of certain food for two years. Start PPI, sucralfate and scopolamine patch. ? US and elastography 12.09.21 hepatic measurement 19.8cm with fatty infiltration, 1x1.5x0.9cm hepatic cyst, stiffness 6kPa. Biochemical 12.09.21 CBC, ESR, haptoglobin, CMP, LFT, LDH, CRP, JESUS, A1c, AFP, ferritin, ceruloplasmin, coag, ADALI comp, ANCA, GAME, LISA, AMA, ASM, hepatitis, HIV without pertinent abnormality. A1c H5.9, CRP H6.95, triglycerides H212, cholesterol H264? Fib4 0.81 ? EGD 01.13.22 LA Grade A esophagitis; ectopic gastric mucosa of proximal esophagus; gastritis; duodenitis, Jo gland hyperplasia. Metaplasia not found. H.Pylori WNL Referred 01.19.22 for ablation which was performed 03.02.22. Reports the procedure went well. OV 8 Continue ursodiol/Vit E NAFLD. Continue PPI ? US and elastography 05.17.22 hepatic measurement 18cm with fatty infiltration, 1.1x1.2x0.9cm cyst, stiffness 11kPa ? Elastography 06.04.22 hepatic stiffness 10kPa OV 06.08.22 with metabolic syndrome with possible recommendation for GLP-1 ? Biochemical 10.15.22 CBC, CMP, A1c, lipids, coag without pertinent abnormality ? A1c H5.9? FIB4 0.76 OV 08.05.22 Continue Mounjaro, increase to 5mg weekly for metabolic syndrome. Continue Vit E and ursodiol. ? Biochemical 12.15.22 (PCP) A1c, triglycerides WNL ? Cholesterol H270? FIB 4 0.55 ? US and elastography 12.28.22 stiffness 6.6kPa? US read requested 04.19.23/05.10.23 OV 01.03.23 doing well. Continue Mounjaro, has resumed atorvastatin, consider addition of COQ10 OV 05.10.23 feels she is having intermittent difficulty with swallowing with cough and gagging. Continues to have nausea with most PO intake. Has lost 28lbs intentionally. Mounjaro was stopped approximately six weeks ago r/t cost. She is feeling very good since undergoing the endoscopy. She was discovered to have a Schatzki's ring which was dilated. Biopsies of distal esophagus did not show any signs of intestinal metaplasia, dysplasia or cancer. We also performed biopsies of the gastric antrum, gastric body, incisor region and gastric cardia. Areas and gastric antrum were positive for gastric intestinal metaplasia without dysplasia or cancer. It also was negative for H. pylori. She has been feeling a lot better since we have eliminated wheat, eggs and milk products ROS Const Constitutional: Positive for fatigue and weight change ENT ENT: No difficulty swallowing Gastro GI: No abdominal pain, belching, bloating, change in bowel habits, change in stool character, coffee ground emesis, constipation, cramping, diarrhea, heartburn, difficulty swallowing, feeling full early, excessive flatus, incontinent of stools, Vomiting blood/hematemesis, Blood in stool, loose stools, Black,tarry stools, nausea/dyspepsia, pain with swallowing, vomiting or other Musc Musculoskeletal: Positive for joint pain, joint swelling, stiffness, Arthritis and restless legs Skin Skin: No yellowing of the eye or itchy eyes Neuro Neurology: Positive for restless legs Psych Psychiatric: Positive for anxiety, No depression and Positive for hyperactivity Endo Endocrine: Positive for fatigue and weight change Aller/Imm Allergy/Immunologic: No itchy eyes Manuel/Lymp Hematologic/Lymphatic: No easy bleeding or easy bruising Exam Const General: cooperative, comfortable and no acute distress Orientation: alert, awake and oriented x3 Eyes Sclera: sclerae normal Resp Effort & Inspection: normal respiratory effort GI Inspection: normal to inspection Quality Reporting Tobacco Screening ([facility] 138) Smoking Status: Never smoker Assessment and Plan Assessment and Plan (1) NAFLD (nonalcoholic fatty liver disease): Status: Chronic Plan: Good improvement of liver stiffness with weight loss She will continue ursodiol and vitamin E for the time being, repeat elastography in 6 months (2) Metabolic syndrome: Status: Chronic Plan: Continue Mounjaro 5 mg subcu weekly She has resumed atorvastatin, consider taking with co-Q10 (3) Barretts esophagus: Status: Chronic (4) Dysphagia: Status: Chronic Qualifiers: Dysphagia type: esophageal phase Qualified Code(s): R13.19 - Other dysphagia Plan: Status post EGD with dilation. She does not have any more esophageal dysphagia at this time. (5) Abdominal pain: Status: Resolved Qualifiers: Abdominal location: epigastric Qualified Code(s): R10.13 - Epigastric pain Plan: Differential diagnosis for abdominal pain does include peptic ulcer disease in the setting of a full dose aspirin taken every day. Also her healing abilities due to the fact that she has fatty liver disease is decreased. She is still on PPI therapy for her gastritis and associated gastric intestinal metaplasia. She does not smoke or drink any alcohol. For now she will continue on PPI therapy and we will do a repeat endoscopy. (6) Nausea: Status: Resolved Plan: We will give her a short course of scopolamine patch and will bring her here every 72 days. I feel that some of her nausea supratentorial secondary to diabetes mellitus which could also lead to get symptoms. However she does have risk for disease of the upper GI tract. I have examined the patient and the H&P has been reviewed. There are no clinical changes since date of exam.
[2023-09-14 08:00] VITALS: BP 123/71; BP 151/72; PULSE 72; RESP 16; TEMP 36.9; O2SAT 98
--- NOTE | 2023-09-14 08:02 | OP.CCLET_ITS ---
09/14/2023 Kale Justice [id number] [facility] [place] [address] Re : Upper GI endoscopy procedure for Shirlene Carlson Dear Dr. Justice This procedure was performed on Thursday, September 14, 2023. My impressions and recommendations are as follows: Impressions : - No gross lesions in the entire esophagus. - Texture changed and decreased vascular pattern mucosa in the pylorus. Treated with radiofrequency ablation. - Normal duodenal bulb. Biopsied. Recommendations : - Discharge patient to home. - Resume previous diet. - Continue present medications. - Await pathology results. My findings are described in the full procedure note, which is enclosed. If I can be of further assistance, please feel free to contact me at . Sincerely, Keo Sarmiento, 09/14/2023 8:02:04 AM This report has been signed electronically.
--- NOTE | 2023-09-14 08:02 | OP.EGD_ITS ---
Patient Name: Shirlene Carlson Procedure Date: 09/14/2023 7:35 AM Date of : 1960 Age: 63 Procedure: Upper GI endoscopy Indications: Follow-up of previous radiofrequency ablation treatment of Sky's esophagus Providers: Keo Sarmiento DO Referring MD: Keo Sarmiento DO Medicines: Propofol per Anesthesia, Monitored Anesthesia Care Patient Profile: This is a 63 year old female. Refer to note in patient chart for documentation of history and physical. Patient has symptoms of chronic epigastric abdominal pain and chronic nausea. Complications: No immediate complications. Procedure: Pre-Anesthesia Assessment: - Prior to the procedure, a History and Physical was performed, and patient medications and allergies were reviewed. The risks and benefits of the procedure and the sedation options and risks were discussed with the patient. All questions were answered and informed consent was obtained. Patient identification and proposed procedure were verified by the physician in the pre-procedure area. Mental Status Examination: alert and oriented. Airway Examination: normal oropharyngeal airway and neck mobility. Respiratory Examination: clear to auscultation. CV Examination: normal. Prophylactic Antibiotics: The patient does not require prophylactic antibiotics. Prior Anticoagulants: The patient has taken no anticoagulant or antiplatelet agents. After reviewing the risks and benefits, the patient was deemed in satisfactory condition to undergo the procedure. The anesthesia plan was to use monitored anesthesia care (MAC). Immediately prior to administration of medications, the patient was re-assessed for adequacy to receive sedatives. The heart rate, respiratory rate, oxygen saturations, blood pressure, adequacy of pulmonary ventilation, and response to care were monitored throughout the procedure. The physical status of the patient was re-assessed after the procedure. After obtaining informed consent, the endoscope was passed under direct vision. Throughout the procedure, the patient's blood pressure, pulse, and oxygen saturations were monitored continuously. The Endoscope was introduced through the mouth, and advanced to the second part of duodenum. The upper GI endoscopy was accomplished without difficulty. The patient tolerated the procedure well. Scope In: 7:45:12 AM Scope Out: 7:55:07 AM Total Procedure Duration Time 0 hours 9 minutes 55 seconds Findings: No gross lesions were noted in the entire esophagus. Localized moderate mucosal changes characterized by altered texture and a decreased vascular pattern were found at the pylorus. Focal radiofrequency ablation of gastric antral vascular ectasia in the stomach was performed. With the endoscope in place, the position and extent of the abnormal mucosa and appropriate anatomic landmarks were noted. The abnormal mucosa was irrigated with water. Gastric contents were suctioned. The radiofrequency channel ablation catheter was introduced through the endoscope working channel. The endoscope with the ablation catheter was advanced to the areas of abnormal mucosa. The endoscope with the channel ablation catheter was positioned under direct visualization so that the catheter was placed in contact with the surface of the abnormal mucosa. Energy was applied twice at 12 J/cm2. Ablation was repeated in a likewise fashion to all remaining visible abnormal mucosa. The channel ablation catheter was then removed through the endoscope working channel, and the ablation catheter was cleaned. The endoscope was left in place. The ablation zone was cleaned of coagulative debris. The ablation catheter was reinserted into the endoscope working channel. A second round of ablation was then performed. Energy was applied twice at 12 J/cm2 to retreat the areas of abnormal mucosa that had been treated with the first series of ablation. The ablation catheter was removed through the endoscope working channel. The areas where abnormal mucosa had been ablated were examined. Areas of abnormal mucosa appeared completely ablated. The endoscope was then removed. Estimated blood loss was minimal. The duodenal bulb was normal. Biopsies were taken with a cold forceps for histology. Verification of patient identification for the specimen was done. Estimated blood loss was minimal. Impression: - No gross lesions in the entire esophagus. - Texture changed and decreased vascular pattern mucosa in the pylorus. Treated with radiofrequency ablation. - Normal duodenal bulb. Biopsied. Recommendation: - Discharge patient to home. - Resume previous diet. - Continue present medications. - Await pathology results. Procedure Code(s): --- Professional --- 95607, 59, Esophagogastroduodenoscopy, flexible, transoral; with control of bleeding, any method 16010, 51, Esophagogastroduodenoscopy, flexible, transoral; with biopsy, single or multiple CPT copyright 2021 [employer]. All rights reserved. The codes documented in this report are preliminary and upon oracle solutions architect review may be revised to meet current compliance requirements. Keo Sarmiento DO 09/14/2023 8:02:04 AM This report has been signed electronically. Number of Addenda: 1 Note Initiated On: 09/14/2023 7:35 AM Addendum Number: 1 Addendum Date: 09/14/2023 8:28:21 AM The duodenum was not biopsied Keo Sarmiento, 09/14/2023 8:28:45 AM This report has been signed electronically.
[2023-09-14 08:05] VITALS: BP 143/74; BP 151/72; PULSE 69; RESP 16; O2SAT 98
[2023-09-14 08:10] VITALS: BP 124/72; BP 151/72; PULSE 72; RESP 16; O2SAT 99
[2023-09-14 08:14] VITALS: BP 125/71; BP 151/72; PULSE 73; RESP 16; TEMP 36.6; O2SAT 98
[2023-09-14 08:26] VITALS: BP 151/72
== END 2023-09-14 08:31 | disposition home or self-care (01) ==
LOC: EN 06:02 → AC 06:03
PROVIDERS: PCP Family Medicine; Referring Provider Family Medicine; Visit Provider Internal Medicine Gastroenterology
PROC: 0DJ08ZZ Inspection of Upper Intestinal Tract, Via Natural or Artificial Opening Endoscopic (ICD-10-PCS; CPT 43235; principal; 2023-09-14 07:10)
DX: K22.70 Barrett's esophagus without dysplasia (principal); K76.0 Fatty (change of) liver, not elsewhere classified; E88.810 Metabolic syndrome; R13.19 Other dysphagia; R10.13 Epigastric pain; R11.0 Nausea
CPT/HCPCS: 43270; 43239; J7120; J2405

== ENCOUNTER → 2023-11-08 | Outpatient (CLI) | payer OTHER, SELFPAY ==
[2023-11-08] VITALS (13 sets, daily range): BP systolic 120–171; BP diastolic 48–97; PULSE 58–63; RESP 13–23; TEMP 36.7; O2SAT 95–99; BMI 24.0
--- OUTSIDE RECORDS SUMMARY | 2023-11-08 08:06 | XMS RPT_ITS | CCD ---
Author Name Unknown Address [address] [place] [address] Organization [facility] Care Team Providers Care Customer Experience Specialist Name Role Phone Marcelo Justice Unavailable Unavailable Darrius Gamez Unavailable Crissy Morel [...] Justice Unavailable Oleksandr Zambrano Primary Care Provider [phone] Allergies Allergy Classification Reported Allergen(s) Allergy Type Date of Onset Reaction(s) Facility (15 sources) topiramate; Translations: [Unknown] Propensity to adverse reactions to drug 5 [facility] (20 sources) topiramate drug allergy 7 Made migraines worse, Very dry mouth [facility] Work Phone: (14 sources) NKDA drug allergy 4 [facility] Work Phone: [...] daily as needed for pain HYDROCODONE-ACETAM INOPHEN [phone] Dionte Christensen MD Problems Active Problems Problem [...] (7 sources) Long-term drug therapy; 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] Onset: 01-21-2017 01-21-2017 Unclassified [...] of teeth and jaw (14 sources) Temporomandibular zkwpz-puev-uaagqlualyn syndrome; 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] Onset: [...] of left shoulder, subsequent encounter; Translations: [Other snf (current) drug therapy] Onset: 12-08-2016 12-16-2016 Episodic [...] height 162.5 cm Marcelo Justice Other Phone: [facility] 01-31-2021 11:33-0400 Body temperature 98.78 [degF] Marcelo Justice Other Phone: [facility] 01-31-2021 11:33-0400 Diastolic blood pressure 77 mm[Hg] Marcelo Justice Other Phone: [facility] 01-31-2021 11:33-0400 Heart rate 79 /min Marcelo Justice Other Phone: [facility] 01-31-2021 11:33-0400 Respiratory rate 16 /min Marcelo Justice Other Phone: [facility] 01-31-2021 11:33-0400 SaO2% (BldA) [Mass fraction] 97 % Marcelo Justice Other Phone: [facility] 01-31-2021 11:33-0400 Systolic blood pressure 110 mm[Hg] Marcelo Justice Other Phone: [facility] 02-20-2020 07:58-0400 Body Temperature 97.7 [degF] Becky Peralta [facility] 09-05-2019 15:34-0500 BMI (Body Mass Index) 26.96 kg/m2 Mannie Ricksmoisesmichael [facility] 09-05-2019 15:34-0500 Body weight 73.48 kg Mannie Rickskunal [facility] 09-05-2019 15:34-0500 BP Diastolic 93 mm[Hg] Mannie Rambokunal [facility] 09-05-2019 15:34-0500 BP Systolic 168 mm[Hg] Mannie Chowdhury [facility] 09-05-2019 15:34-0500 Pulse (Heart Rate) 78 /min [facility] 01-17-2019 09:08-0400 BMI (Body Mass Index) 27.31 kg/m2 Mannie Chowdhury [facility] 01-17-2019 09:08-0400 BP Diastolic 83 mm[Hg] [facility] 01-17-2019 09:08-0400 BP Systolic 160 mm[Hg] Mannie [facility] 01-17-2019 09:08-0400 Pulse (Heart Rate) 76 /min [facility] 01-17-2019 09:08-0400 Weight 74.44 kg [facility] 04-26-2018 09:44-0400 BMI (Body Mass Index) 26.14 kg/m2 Mannie [facility] 04-26-2018 09:44-0400 BP Diastolic 96 mm[Hg] Mannie [facility] 04-26-2018 09:44-0400 BP Systolic 177 mm[Hg] [facility] 04-26-2018 09:44-0400 Pulse (Heart Rate) 80 /min Mannie [facility] 04-26-2018 09:44-0400 Weight 71.26 kg Mannie [facility] 01-25-2018 09:41-0400 BMI (Body Mass Index) 25.86 kg/m2 Mannie [facility] 01-25-2018 09:41-0400 BP Diastolic 76 mm[Hg] Mannie [facility] 01-25-2018 09:41-0400 BP Systolic 165 mm[Hg] [facility] 01-25-2018 09:41-0400 Pulse (Heart Rate) 86 /min Mannie [facility] 01-25-2018 09:41-0400 Weight 70.49 kg Mannie [facility] 10-19-2017 11:11-0500 BMI (Body Mass Index) 26.11 kg/m2 Mannie [facility] 10-19-2017 11:11-0500 BP Diastolic 82 mm[Hg] Mannie [facility] 10-19-2017 11:11-0500 BP Systolic 166 mm[Hg] Mannie [facility] 10-19-2017 11:11-0500 Pulse (Heart Rate) 82 /min Mannie Chowdhury [facility] 10-19-2017 11:11-0500 Weight 71.17 kg Mannie Chowdhury [facility] 02-09-2017 11:07-0400 BMI (Body Mass Index) 25.82 [...] Phone: 02-09-2017 11:07-0400 Weight 72.58 kg [facility] Work Phone: 12-15-2016 12:22-0400 Body surface area Derived from formula 90.08 mL/min aMndy Pereira RN [facility] Work Phone: 07-14-2016 09:00-0500 BMI (Body Mass Index) 26.47 kg/m2 [facility] Work Phone: 07-14-2016 09:00-0500 Body weight 74.39 kg Mandy Pereira RN [facility] Work Phone: 07-14-2016 09:00-0500 BP Diastolic 72 mm[Hg] [facility] Work Phone: 07-14-2016 09:00-0500 BP Systolic 140 mm[Hg] Darrius Franco [facility] Work Phone: 07-14-2016 09:00-0500 BSA (Body Surface Area) 1.84 m2 [facility] Work Phone: 07-14-2016 09:00-0500 Height 167.64 cm [facility] Work Phone: 07-14-2016 09:00-0500 Pulse (Heart Rate) 66 /min [facility] Work Phone: 07-14-2016 09:00-0500 Respiratory Rate 16 /min Located within [facility] Work Phone: 07-14-2016 09:00-0500 Weight 74.39 kg [facility] Work Phone: 09-15-2015 10:54-0500 Body Temperature 98.4 [degF] Located within [facility] Work Phone: 09-15-2015 10:54-0500 Pulse Oximetry 99 % [facility] Work Phone: 10-03-2013 15:19-0500 Heart rate 66 /min [facility] Work Phone: 10-03-2013 15:19-0500 Heart rate 486 ms Mandy Pereira RN [facility] Work Phone: Encounters Encounter Date Encounter Type Care Provider Facility Start: 01-27-2022 AUDIT Marcelo Segura n Work Phone: [facility] 450 DO Work Phone: Start: 01-31-2021 End: 01-31-2021 Emergency department patient visit Rowan Shook [facility] 01 Start: 10-30-2020 End: 10-30-2020 Orders Only Denise Rockwell Work Phone: [facility] Start: 02-20-2020 End: 02-20-2020 Patient encounter procedure BECKY PERALTA [facility] Amb[facility] Start: 02-20-2020 End: 02-20-2020 Office outpatient visit 10 minutes Becky Peralta Work Phone: [facility] Procedures Date Procedure Procedure Detail Performing Clinician [...] Dionte Christensen MD Start: 10-01-2014 End: 10-01-2014 RECREATIONAL THERAPY TECHNICIAN Maciel Rowell MD Start: 10-01-2014 End: 10-02-2014 [...] 06-25-2014 End: 07-10-2014 Mri brain w/o dye Dionte Christensen MD Start: 06-25-2014 End: 10-03-2014 Remove [...] 11-05-2013 *UA - Urinalysis w/o Micro Dionte hCristensen MD Start: 09-28-2013 End: 05-22-2014 CBC W [...] MD Start: 05-22-2010 End: 06-12-2010 Arterial exam aWnder Reeves MD Start: 05-22-2010 End: 06-12-2010 Hepatic [...] panel Wander Reeves MD Start: 10-03-2006 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, 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 Jolly Mat Castellon Work Phone: Plan of Treatment Date Care Activity Detail Author Start: 04-29-2023 Influenza [facility] Start: 08-29-2022 Depression Assessment Depression Assessment [facility] Start: 02-09-2022 Lipid 1996 panel - Serum or Plasma Lipid Screening [facility] Start: 04-29-2020 Influenza vaccination given [facility] Start: 03-05-2020 End: 03-05-2020 Office Visit 03/05/2020 Office Visit Orthopedic Surgery Mannie Chowdhury MD [address] [facility] [place] [address] [phone] [facility] Start: 02-13-2020 End: 02-13-2020 Clinical Support 02/13/2020 Clinical Support Sports Medicine Becky Peralta, GATHERING MACHINE SETTER [address] [facility] [address] [place] [address] [phone] [facility] Start: 07-25-2019 End: 07-25-2019 Office Visit 07/25/2019 Office Visit Orthopedic Surgery Mannie Chowdhury MD [address] [place] [address] [phone] [facility] Start: 04-29-2019 Influenza vaccination given [facility] Start: 11-01-2018 End: 11-01-2018 Ambulatory 11/01/2018 Office Visit Orthopedic Surgery Mannie Chowdhury MD [address] [place] [phone] [facility] Start: 07-05-2018 End: 07-05-2018 Ambulatory 07/05/2018 Office Visit Orthopedic Surgery Mannie Chowdhury MD [address] [place] [address] [phone] [facility] Start: 04-29-2018 Influenza vaccination [facility] Start: 04-19-2018 Ambulatory 04/19/2018 Office Visit Orthopedic Surgery Mannie Chowdhury MD [facility] [place] [address] [phone] [facility] Start: 02-08-2018 End: 02-08-2018 Appointment Appointment [facility] Work Phone: Start: 12-01-2017 End: 06-02-2017 *Hepatic Function Panel *Hepatic Function Panel [facility] Work Phone: Start: 12-01-2017 End: 06-02-2017 Lipid 1996 panel *Lipid Profile CC PCP [facility] Work Phone: Start: 04-29-2017 Influenza vaccination SEQUENTIAL INFLUENZA VACCINE (#1) [facility] Start: 03-14-2017 End: 03-14-2017 Appointment Appointment [facility] Work Phone: Start: 02-15-2017 End: 02-15-2017 Appointment Appointment [facility] Work Phone: Start: 02-09-2017 End: 06-02-2017 *Hepatic Function Panel *Hepatic Function Panel [facility] Work Phone: Start: 02-09-2017 End: 02-09-2017 Follow Up Appt 1 year Follow Up Appt 1 year [facility] Work Phone: Start: 02-09-2017 End: 06-02-2017 Lipid 1996 panel *Lipid Profile CC PCP [facility] Work Phone: Start: 02-09-2017 End: 02-09-2017 MMM MMM [facility] Work Phone: Start: 02-09-2017 End: 02-09-2017 Appointment Appointment [facility] Work Phone: Start: 02-09-2017 End: 02-09-2017 *Hepatic Function Panel *Hepatic Function Panel [facility] Work Phone: Start: 02-09-2017 End: 02-09-2017 Follow Up Appt 1 year Follow Up Appt 1 year [facility] Work Phone: Start: 02-09-2017 End: 02-09-2017 Lipid panel [AGGREGATE] *Lipid Profile CC PCP [facility] Work Phone: Start: 02-09-2017 End: 02-09-2017 MMM MMM [facility] Work Phone: Start: 01-31-2017 End: 01-31-2017 Appointment Appointment [facility] Work Phone: Start: 01-31-2017 End: 01-31-2017 Appointment Appointment [facility] Work Phone: Start: 01-25-2017 End: 01-25-2017 Appointment Appointment [facility] Work Phone: Start: 01-25-2017 End: 01-25-2017 Appointment Appointment [facility] Work Phone: Start: 01-06-2017 End: 12-16-2016 *Hepatic Function Panel *Hepatic Function Panel [facility] Work Phone: Start: 01-06-2017 End: 12-16-2016 Lipid 1996 panel *Lipid Profile CC PCP [facility] Work Phone: Start: 01-06-2017 End: 12-16-2016 *Hepatic Function Panel *Hepatic Function Panel [facility] Work Phone: Start: 01-06-2017 End: 12-16-2016 Lipid panel [AGGREGATE] *Lipid Profile CC PCP [facility] Work Phone: Start: 01-03-2017 End: 01-03-2017 Appointment Appointment [facility] Work Phone: Start: 09-17-2016 Screening mammography Mammogram [facility] Start: 09-14-2016 End: 12-16-2016 Ct upper extremity [...] 6 months Follow Up Appt 6 months [facility] Work Phone: Start: 07-14-2016 End: 11-24-2016 Lipid 1996 panel *Lipid Profile CC PCP [facility] Work Phone: Start: 07-14-2016 End: 07-14-2016 [facility] Work Phone: Start: 07-14-2016 End: 11-24-2016 *Hepatic Function Panel *Hepatic Function Panel [facility] Work Phone: Start: 07-14-2016 End: 07-14-2016 Follow Up Appt 6 months Follow Up Appt 6 months [facility] Work Phone: Start: 07-14-2016 End: 11-24-2016 Lipid panel [AGGREGATE] *Lipid Profile CC PCP [facility] Work Phone: Start: 07-14-2016 End: 07-14-2016 [facility] Work [facility]: Start: 02-18-2016 End: 12-16-2016 Mri any jt upper extremity w/o contrast matrl MRI Joint Upper Extremity [facility] Work Phone: Start: 02-18-2016 End: 12-16-2016 Mri joint upr extrem w/o dye MRI Joint Upper Extremity [facility] Work Phone: Start: 09-18-2015 End: 09-22-2015 Orthopedic Referral Orthopedic Referral Darrius Gamez DO, [facility], [address] [place] [address], [address], [place], [address] [facility] Work Phone: Start: 09-18-2015 End: 09-22-2015 Orthopedic Referral Orthopedic Referral Darrius Gamez DO, [facility], [address] [facility], [address], [place], [address] [facility] Work Phone: Start: 09-15-2015 End: 09-17-2015 Radex shoulder complete minimum 2 views X-Ray, Shoulder [facility] Work Phone: Start: 09-15-2015 End: 09-17-2015 Radex spine cervical 2 or 3 views X-Ray, Spine, Cervical [facility] Work Phone: Start: 09-15-2015 End: 09-17-2015 X-ray exam of neck spine X-Ray, Spine, Cervical [facility] Work Phone: Start: 09-15-2015 End: 09-17-2015 X-ray exam of shoulder X-Ray, Shoulder [facility] Work Phone: Start: 08-13-2015 End: 09-17-2015 *CMP Complete Metabolic Panel *CMP Complete Metabolic Panel [facility] Work Phone: Start: 08-13-2015 End: 09-17-2015 25-Hydroxyvitamin D2+25-Hydroxyvitamin D3 mass conc *Vitamin D (Calciferol) [facility] Work Phone: Start: 08-13-2015 End: 09-18-2015 Lipid 1996 panel *Lipid Profile [facility] Work Phone: Start: 08-13-2015 End: 09-17-2015 T4 free mass conc *T4 free [facility] Work Phone: Start: 08-13-2015 End: 09-17-2015 Thyrotropin Qn *TSH [facility] Work Phone: Start: 08-13-2015 End: 09-17-2015 *CMP Complete Metabolic Panel *CMP Complete Metabolic Panel [facility] Work Phone: Start: 08-13-2015 End: 09-17-2015 25-Hydroxyvitamin D2+25-Hydroxyvitamin D3 [Mass/volume] in Serum or Plasma *Vitamin D (Calciferol) [facility] Work Phone: Start: 08-13-2015 End: 09-18-2015 Lipid panel [AGGREGATE] *Lipid Profile [facility] Work Phone: Start: 08-13-2015 End: 09-17-2015 Thyroid stimulating hormone (TSH) *TSH [facility] Work Phone: Start: 08-13-2015 End: 09-17-2015 Thyroxine (T4) free *T4 free [facility] Work Phone: Start: 06-05-2015 End: 09-17-2015 Chest x-ray X-Ray, Chest, PA & Lateral [facility] Work Phone: Start: 06-05-2015 End: 09-17-2015 Chest x-ray X-Ray, Chest, PA & Lateral [facility] Work Phone: Start: 05-07-2015 End: 09-17-2015 Mammogram, screening Mammogram, Screening, both breasts [facility] Work Phone: Start: 05-07-2015 End: 09-17-2015 Mammogram, screening Mammogram, Screening, both breasts [facility] Work Phone: Start: 04-14-2015 End: 09-17-2015 EMG EMG [facility] Work Phone: Start: 04-14-2015 End: 09-17-2015 Nerve Conduction Nerve Conduction [facility] Work Phone: Start: 04-14-2015 End: 09-17-2015 EMG EMG [facility] Work Phone: Start: 04-14-2015 End: 09-17-2015 Nerve Conduction Nerve Conduction [facility] Work Phone: Start: 04-11-2015 End: 09-17-2015 EMG EMG [facility] Work Phone: Start: 04-11-2015 End: 09-17-2015 Nerve Conduction Nerve Conduction [facility] Work Phone: Start: 04-11-2015 End: 09-17-2015 EMG EMG [facility] Work Phone: Start: 04-11-2015 End: 09-17-2015 Nerve Conduction Nerve Conduction [facility] Work Phone: Start: 02-05-2015 End: 09-17-2015 Other Referral Other Referral [facility] Work Phone: Start: 02-05-2015 End: 09-17-2015 Other Referral Other Referral [facility] Work Phone: Start: 10-16-2014 End: 10-23-2014 *CMP Complete Metabolic Panel *CMP Complete Metabolic Panel [facility] Work Phone: Start: 10-16-2014 End: 10-23-2014 25-Hydroxyvitamin D2+25-Hydroxyvitamin D3 mass conc *Vitamin D (Calciferol) [facility] Work Phone: Start: 10-16-2014 End: 10-23-2014 Lipid 1996 panel *Lipid Profile [place] [facility] [employer] Work Phone: Start: 10-16-2014 End: 10-16-2014 Surgery Referral Surgery Referral Sari Ronquillo, [facility], [address], [place], [address] [facility] Work Phone: Start: 10-16-2014 End: 10-30-2014 Thyroid uptake single/multiple quant measurement Thyroid uptake, single or multiple measurement(s) [facility] Work Phone: Start: 10-16-2014 End: 10-23-2014 *CMP Complete Metabolic Panel *CMP Complete Metabolic Panel [facility] Work Phone: Start: 10-16-2014 End: 10-23-2014 25-Hydroxyvitamin D2+25-Hydroxyvitamin D3 [Mass/volume] in Serum or Plasma *Vitamin D (Calciferol) [facility] Work Phone: Start: 10-16-2014 End: 10-23-2014 Lipid panel [AGGREGATE] *Lipid Profile [facility] Work Phone: Start: 10-16-2014 End: 10-16-2014 Surgery Referral Surgery Referral Sari Ronquillo, [facility], [address], [place], [address] [facility] Work Phone: Start: 10-16-2014 End: 10-30-2014 Thyroid uptake measurement Thyroid uptake, single or multiple measurement(s) [facility] Work Phone: Start: 10-02-2014 End: 10-03-2014 Thyrotropin Qn *TSH [facility] Work Phone: Start: 10-02-2014 End: 10-03-2014 Thyroid stimulating hormone (TSH) *TSH [facility] Work Phone: Start: 10-01-2014 End: 10-01-2014 RECREATIONAL THERAPY TECHNICIAN [facility] Work Phone: Start: 10-01-2014 End: 10-01-2014 Follow Up Appt 1 year Follow Up Appt 1 year [facility] Work Phone: Start: 10-01-2014 End: 10-01-2014 RECREATIONAL THERAPY TECHNICIAN RECREATIONAL THERAPY TECHNICIAN [facility] Work Phone: Start: 10-01-2014 End: 10-01-2014 Follow Up Appt 1 year Follow Up Appt 1 year [facility] Work Phone: Start: 09-12-2014 End: 10-03-2014 Us soft tissue head & neck real time imge docm US Thyroid (Soft tissue neck) [facility] Work Phone: Start: 09-12-2014 End: 10-03-2014 Us exam of head and neck US Thyroid (Soft tissue neck) [facility] Work Phone: Start: 06-25-2014 End: 07-10-2014 Mri brain brain stem w/o contrast material [facility] Work Phone: Start: 06-25-2014 End: 10-03-2014 Removal impacted cerumen instrumentation unilat Ear wax removal [facility] Work Phone: Start: 06-25-2014 End: 07-10-2014 Mri brain w/o dye MRI Brain [facility] Work Phone: Start: 06-25-2014 End: 10-03-2014 Remove impacted ear wax Ear wax removal [facility] Work Phone: Start: 05-08-2014 End: 05-22-2014 25-Hydroxyvitamin D2+25-Hydroxyvitamin D3 mass conc *Vitamin D (Calciferol) [facility] Work Phone: Start: 05-08-2014 End: 05-22-2014 Mammogram, Screening, both breasts Mammogram, Screening, both breasts [facility] Work Phone: Start: 05-08-2014 End: 05-22-2014 25-Hydroxyvitamin D2+25-Hydroxyvitamin D3 [Mass/volume] in Serum or Plasma *Vitamin D (Calciferol) [facility] Work Phone: Start: 05-08-2014 End: 05-22-2014 Mammogram, Screening, both breasts Mammogram, Screening, both breasts [facility] Work Phone: Start: 01-25-2014 End: 01-30-2014 *BMP *[facility] Start: 01-25-2014 End: 01-30-2014 25-Hydroxyvitamin D2+25-Hydroxyvitamin D3 mass conc *Vitamin D (Calciferol) [facility] Work Phone: Start: 01-25-2014 End: 01-30-2014 *BMP *BMP [facility] Work Phone: Start: 01-25-2014 End: 01-30-2014 25-Hydroxyvitamin D2+25-Hydroxyvitamin D3 [Mass/volume] in Serum or Plasma *Vitamin D (Calciferol) [facility] Work Phone: Start: 12-04-2013 End: 05-22-2014 Urnls dip stick/tablet rgnt non-auto w/o micrscp UA Dipstick (Office) [facility] Work Phone: Start: 12-04-2013 End: 10-03-2014 Us abdominal real time w/image limited US Abdomen, limited [facility] Work Phone: Start: 12-04-2013 End: 10-03-2014 Echo exam of abdomen US Abdomen, limited [facility] Work Phone: Start: 12-04-2013 End: 05-22-2014 Urinalysis nonauto w/o scope UA Dipstick (Office) [facility] Work Phone: Start: 10-03-2013 End: 10-03-2013 [facility] Work Phone: Start: 10-03-2013 End: 10-03-2013 Ecg routine ecg w/least 12 lds w/i&r EKG (In office) [facility] Work Phone: Start: 10-03-2013 End: 10-03-2013 Echocardiography Echocardiogram (complete) [facility] Work Phone: Start: 10-03-2013 End: 10-03-2013 Follow Up Appt 1 year Follow Up Appt 1 year [facility] Work Phone: Start: 10-03-2013 End: 10-03-2013 [facility] Work Phone: Start: 10-03-2013 End: 10-03-2013 Echocardiography Echocardiogram (complete) [facility] Work Phone: Start: 10-03-2013 End: 10-03-2013 Electrocardiogram, complete EKG (In office) [facility] Orthopaedics Work Phone: Start: 10-03-2013 End: 10-03-2013 Follow Up Appt 1 year Follow Up Appt 1 year [facility] Work Phone: Start: 09-28-2013 End: 11-05-2013 *CMP Complete Metabolic Panel *CMP Complete Metabolic Panel [facility] Work Phone: Start: 09-28-2013 End: 11-05-2013 *UA - Urinalysis w/o Micro *UA - Urinalysis w/o Micro [facility] Work Phone: Start: 09-28-2013 End: 11-05-2013 CBC W Auto Differential panel - Blood *CBC without Diff [facility] Work Phone: Start: 09-28-2013 End: 11-05-2013 Lipid 1996 panel *Lipid Profile [facility] Work Phone: Start: 09-28-2013 End: 11-05-2013 *CMP Complete Metabolic Panel *CMP Complete Metabolic Panel [facility] Work Phone: Start: 09-28-2013 End: 11-05-2013 *UA - Urinalysis w/o Micro *UA - Urinalysis w/o Micro [facility] Work Phone: Start: 09-28-2013 End: 11-05-2013 CBC W Auto Differential panel - Blood *CBC without Diff [facility] Work Phone: Start: 09-28-2013 End: 11-05-2013 Lipid panel [AGGREGATE] *Lipid Profile [facility] Work Phone: Start: 06-29-2013 End: 10-03-2014 Bone density scan Bone Density Study [facility] Work Phone: Start: 06-29-2013 End: 10-03-2014 Bone density scan Bone Density Study [facility] Work Phone: Start: 03-21-2013 End: 05-22-2014 Mammogram, Screening, both breasts Mammogram, Screening, both breasts [facility] Work Phone: Start: 03-21-2013 End: 04-05-2013 Mri brain brain stem w/o contrast material MRI Brain [facility] Work Phone: Start: 03-21-2013 End: 05-22-2014 Mammogram, Screening, both breasts Mammogram, Screening, both breasts [facility] Work Phone: Start: 03-21-2013 End: 04-05-2013 Mri brain w/o dye MRI Brain [facility] Work Phone: Start: 12-20-2012 End: 03-06-2013 Lipid 1996 panel *Lipid Profile [facility] Work Phone: Start: 12-20-2012 End: 03-06-2013 Lipid panel [AGGREGATE] *Lipid Profile [facility] Work Phone: Start: 10-06-2012 End: 10-10-2012 Surgery Referral Surgery Referral Boone Caldwell MD, [facility], [facility] [address], [address], [place], [address] [facility] Work Phone: Start: 10-06-2012 End: 10-10-2012 Surgery Referral Surgery Referral Boone Caldwell MD, [facility], [address], [address], [place], [address] [facility] Work Phone: Start: 08-16-2012 End: 10-06-2012 Hepatobiliary imaging NM HIDA Scan with [facility] Work Phone: Start: 08-16-2012 End: 10-06-2012 Hepatobiliary imaging NM HIDA Scan with [facility] Work Phone: Start: 08-02-2012 End: 08-14-2012 *Hepatic Function Panel *Hepatic Function Panel [facility] Work Phone: Start: 08-02-2012 End: 08-10-2012 Amylase enzyme act/vol *Amylase - Serum [facility] Work Phone: Start: 08-02-2012 End: 10-10-2012 H. pylori IgG Qn (S) *Helicobacter pylori [facility] Work Phone: Start: 08-02-2012 End: 08-10-2012 Lipase enzyme act/vol *Lipase [facility] Work Phone: Start: 08-02-2012 End: 08-11-2012 Us abdominal real time w/image limited US Abdomen, limited [facility] Work Phone: Start: 08-02-2012 End: 08-14-2012 *Hepatic Function Panel *Hepatic Function Panel [facility] Work Phone: Start: 08-02-2012 End: 08-10-2012 Amylase *Amylase - Serum [facility] Work Phone: Start: 08-02-2012 End: 08-11-2012 Echo exam of abdomen US Abdomen, limited [facility] Work Phone: Start: 08-02-2012 End: 10-10-2012 Helicobacter pylori IgG Ab [Units/volume] in Serum *Helicobacter pylori [facility] Work Phone: Start: 08-02-2012 End: 08-10-2012 Lipase *Lipase [facility] Work Phone: Start: 04-14-2012 End: 05-22-2014 Creatine kinase mb fraction only CPK [facility] Work Phone: Start: 04-14-2012 End: 04-14-2012 Follow Up Appt 3 months Follow Up Appt 3 months [facility] Work Phone: Start: 04-14-2012 End: 04-14-2012 Mri brain brain stem w/o w/contrast material MRI Brain with Contrast [facility] Work Phone: Start: 04-14-2012 End: 05-22-2014 Creatine, MB fraction CPK [facility] Work Phone: Start: 04-14-2012 End: 04-14-2012 Follow Up Appt 3 months Follow Up Appt 3 months [facility] Work Phone: Start: 04-14-2012 End: 04-14-2012 Mri brain w/o & w/dye MRI Brain with Contrast [facility] Work Phone: Start: 01-13-2012 End: 05-09-2012 *Hepatic Function Panel *Hepatic Function Panel [facility] Work Phone: Start: 01-13-2012 End: 05-09-2012 Lipid 1996 panel *Lipid Profile [facility] Work Phone: Start: 01-13-2012 End: 05-09-2012 *Hepatic Function Panel *Hepatic Function Panel [facility] Work Phone: Start: 01-13-2012 End: 05-09-2012 Lipid panel [AGGREGATE] *Lipid Profile [facility] Work Phone: Start: 05-22-2010 End: 06-12-2010 *Thyroid Profile (T3,T4,TSH) *Thyroid Profile (T3,T4,TSH) [facility] Work Phone: Start: 05-22-2010 End: 06-12-2010 Arterial exam Arterial exam [facility] Work Phone: Start: 05-22-2010 End: 06-12-2010 Hepatic function panel *Liver/Hepatic Function Panel [facility] Work Phone: Start: 05-22-2010 End: 06-12-2010 Protein mass conc *Lipid Profile [facility] Work Phone: Start: 05-22-2010 End: 06-12-2010 *Thyroid Profile (T3,T4,TSH) *Thyroid Profile (T3,T4,TSH) [facility] Work Phone: Start: 05-22-2010 End: 06-12-2010 Arterial exam Arterial exam [facility] Work Phone: Start: 05-22-2010 End: 06-12-2010 Hepatic function panel *Liver/Hepatic Function Panel [facility] Work Phone: Start: 05-22-2010 End: 06-12-2010 Lipid panel *Lipid Profile [facility] Work Phone: Start: 05-22-2010 End: 06-12-2010 Protein mass conc *Lipid Profile [facility] Work Phone: Start: 12-30-2009 End: 02-19-2010 Assay of thyroxine total *T4 (Total) [facility] Work Phone: Start: 12-30-2009 End: 02-19-2010 Assay of triiodothyronine t3 total tt3 *T3-Total [facility] Work Phone: Start: 12-30-2009 End: 02-19-2010 Comprehensive metabolic panel *CMP Complete Metabolic Panel [facility] Work Phone: Start: 12-30-2009 End: 02-19-2010 Protein mass conc *Lipid Profile [facility] Work Phone: Start: 12-30-2009 End: 02-19-2010 Thyrotropin Qn *TSH [facility] Work Phone: Start: 12-30-2009 End: 02-19-2010 Assay of total thyroxine *T4 (Total) [facility] Work Phone: Start: 12-30-2009 End: 02-19-2010 Assay, triiodothyronine (t3) *T3-Total [facility] Work Phone: Start: 12-30-2009 End: 02-19-2010 Comprehen metabolic panel *CMP Complete Metabolic Panel [facility] Work Phone: Start: 12-30-2009 End: 02-19-2010 Lipid panel *Lipid Profile [facility] Work Phone: Start: 12-30-2009 End: 02-19-2010 Protein mass conc *Lipid Profile [facility] Work Phone: Start: 12-30-2009 End: 02-19-2010 Thyroid stimulating hormone (TSH) *TSH [facility] Work Phone: Start: 2009 Administration of herpes zoster vaccine Zoster Vaccines (1 of 2) [facility] Start: 2009 Screening for malignant neoplasm of colon [facility] Start: 2009 Shingrix Vaccine (1 of 2) Shingrix Vaccine (1 of 2) [facility] Start: 01-30-2004 Cologuard (FIT-DNA) Cologuard (FIT-DNA) [facility] Start: 01-30-2004 Colonoscopy Colonoscopy [facility] Start: 01-30-2004 Colorectal Cancer Screening Colorectal Cancer Screening [facility] Start: 01-30-[address] COLONOGRAPHY [facility] Start: 01-30-2004 Diabetes Screening Diabetes Screening [facility] Start: 01-30-2004 Fecal Occult Blood Fecal Occult Blood [facility] Start: 01-30-2004 SIGMOIDOSCOPY SIGMOIDOSCOPY [facility] Start: 1999 Mammography Mammogram Screening [facility] Start: 1989 HPV Testing HPV Testing [facility] Start: 01-30-1980 Pap Testing Pap Testing [facility] Start: 1978 Urine microalbumin profile DTaP,Tdap,Td Vaccine (1 - Tdap) [facility] Start: 1977 Hepatitis C antibody, confirmatory test Hepatitis C Screening [facility] Start: 1977 Hepatitis C Screening Hepatitis C Screening [facility] Start: 1977 HIV Screening HIV Screening [facility] Start: 1975 COVID-19 Vaccine (1 of 2) COVID-19 Vaccine (1 of 2) [facility] Start: 1974 HIV screening HIV Screening [facility] Start: 1971 Adolescent depression screening assessment Depression Screening (PHQ9) [facility] Start: 1962 History and physical examination, annual for health maintenance Wellness Visit [facility] Start: 1959 Covid-19 Vaccine (#1) Covid-19 Vaccine (#1) [facility] Start: 1959 Depression screening using PHQ-9 (Patient Health Questionnaire 9) score Depression Screening (PHQ9) [facility] Start: 1959 Hepatitis C antibody, confirmatory test HEPATITIS C SCREENING [facility] Start: 1959 Protein mass conc Mammogram [facility] Start: 1959 Screening for malignant neoplasm of colon Colorectal Cancer Screening: Colonoscopy [facility] Start: 1959 Screening mammography Mammogram [facility] Start: 1959 HEPATITIS C SCREENING HEPATITIS C SCREENING [facility] Start: 1959 Screening colonoscopy COLONOSCOPY [facility] Start: 1959 End: 1959 Screening for malignant neoplasm of cervix PAP SMEAR [facility] Start: 1959 End: 1959 Tetanus vaccination [facility] End: 10-20-2018 CRP, Inflammation CRP, Inflammation Routine Rheumatoid arthritis involving multiple sites, unspecified rheumatoid factor presence (HCC) 1 Occurrences starting 10/19/2017 until 10/20/2018 [facility] End: 10-20-2018 Erythrocyte sedimentation rate Sedimentation Rate Routine Rheumatoid arthritis involving multiple sites, unspecified rheumatoid factor presence (HCC) 1 Occurrences starting 10/19/2017 until 10/20/2018 [facility] Patient Education HYPERLIPIDEMIA , HYPERLIPIDEMIA [facility] Work Phone: Immunizations Immunization Date Immunization Notes Care Provider Siena knight 06-25-2014 varicella zoster imm une globulin; Translations: [ZOSTER VACCINE LIVE] Rox Ratliff PA-C [facility] Work Phone: 06-25-2014 varicella zoster imm une globulin; Translations: [ZOSTER VACCINE LIVE] Mandy Pereira RN [facility] Work Phone: Payers Date Payer Category Payer Unknown 2014 [facility] [id number] 2014 Unknown xxxxxxxxxxxx [id number] 2014 Unknown [id number] 2014 Unknown LIZETTEZENIA JOSE DE JESUS MURILLO/SRAVAN/HMO/PPO [id number] 2014-Present [id number] 1959 Unknown [id number] 3 1959 Unknown [id number] 3 1959 Unknown [id number] 3 1959 Unknown [id number] 3 1959 Unknown [id number] 3 1959 Unknown [id number] 3 1959 Unknown [id number] 3 1959 Unknown [id number] 3 Social History Date Type Detail Facility Start: 01-25-2018 End: 09-05-2019 Tobacco smoking status IAIS Never smoker [facility] Start: 1960 Sex Assigned At Not on file [facility] Start: 09-05-2019 End: 09-26-2019 Alcohol intake Current non-drinker of alcohol (finding) [facility] Start: 01-17-2022 End: 01-27-2022 Exposure to SARS-CoV-2 (event) Not sure [facility] Start: 02-20-2020 Tobacco use and exposure Never used [facility] Tobacco smoking consumption unknown [facility] Gender identity Not on file [facility] inic Assessments Diagnosis Rheumatoid arthritis involvi [...] Documents on File Type Date Recorded 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 Advance Directives and Living Will Documents on File Type Date Recorded 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 anation Advance Directives and Livin g Will 09/05/2019 3:52 PM Documents on File Type Date Recorded 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 anation Advance Directives and Livin g Will 01/23/2020 8:00 AM Documents on File Type Date Recorded 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 anation Advance Directives and Livin g Will 09/05/2019 3:52 PM Reason for Referral Status Reason Specialty Diagnoses / Procedures Referred By Contact Referred To Contact Authorized Specialty Services Required/[facility] Diagnoses Pain of right great toe Mannie Chowdhury MD [address] [place] [address] Albina Nazario MD [address] [place] [phone] Status Reason Specialty Diagnoses / Procedures Referred By Contact Referred To Contact Authorized Specialty Services Required/[facility] Diagnoses Primary osteoarthritis of first carpometacarpal joint of right hand Mannie Chowdhury MD [address] [phone] Marcelo Mena MD [address] [facility] [address] [place] [address] History of Present Illness * Mannie Chowdhury MD - 01/17/2019 9:58 AM EDT [facility]. Name: Remi Carlson Date:01/17/19 [id number] :1960 Allergies: Topiramate Medications: Current Outpatient Medications: ALPRAZolam (XANAX) 0.5 MG tablet, , Disp: , Rfl: iegdazjhyh-qadbemw-ydvkdnze (FIORINAL) 50-325-40 mg per capsule, , Disp: [...] this chart may have been created with [employer] voice recognition software. Occasional wrong-word or sound-like [...] CNP Authorized by: Becky Peralta CNP CPT 74274 - Small Joint Arthrocentesis: Consent given by: [...] which was ineffective by her physician in [place]. PMH: Allergies Allergen Reactions Topiramate Current Outpatient Medications: ALPRAZolam (XANAX) 0.5 MG tablet, , Disp: , Rfl: atorvastatin (LIPITOR) 80 MG tablet, Take 80 mg by mouth daily., Disp: , Rfl: kfccyszdxq-oxtqzdg-lplfnxrj (FIORINAL) 50-325-40 mg per capsule, , Disp: [...] file Gets together: Not on file Attends temple service: Not on file Active member of [...] Strength Wrist extension: 5/5 Wrist flexion: 5/5 Doggy Daycare Activities Director: 4/5 Tests Phalen s Sign: negative Tinel's sign (median nerve): negative Shade's test: negative Other Erythema: absent Sensation: normal Pulse: present Comments: Positive grind test Scar on right wrist from DeQuervain surgery Left Hand Exam Tenderness Left hand tenderness location: thumb cmc. Range of Motion The patient has normal left wrist ROM. Muscle Strength Wrist extension: 5/5 Wrist flexion: 5/5 Doggy Daycare Activities Director: 5/5 Tests Phalen s Sign: negative Tinel's [...] a bad experience with a surgeon in [place] who said she was going to fix [...] CNP Authorized by: Becky Peralta CNP CPT 04036 - Small Joint Arthrocentesis: Consent given by: [...] CNP Authorized by: Becky Peralta CNP CPT 99869 - Small Joint Arthrocentesis: Consent given by: [...] thumb. 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 Name: Remi Carlson Date:09/05/19 [id number] :1960 Allergies: Topiramate Medications: Current Outpatient Medications: ALPRAZolam (XANAX) 0.5 MG tablet, , Disp: , Rfl: atorvastatin (LIPITOR) 80 MG tablet, Take 80 mg by mouth daily., Disp: , Rfl: ntkfrdrgpb-wioastv-cmaeucbn (FIORINAL) 50-325-40 mg per capsule, , Disp: [...] decided to see an orthopedic surgeon in [place] which did not help. She apparently hasundergone [...] this chart may have been created with [employer] voice recognition software. Occasional wrong-word or sound-like substitutions may have occurred due to inherent limitations of the voice recognition software. Please read the chart carefully and recognize, using context, where the substitutions have occurred. Mannie Chowdhury MD documented in this encounter Additional Source Comments INFORMATION SOURCE (unrecogn ized section and content) DATE CREATED AUTHOR AUTHOR'S ORGANIZ ATION 02/17/2018 [facility] DATE CREATED AUTHOR AUTHOR'S ORGANIZ ATION 09/10/2019 [facility] DATE CREATED AUTHOR AUTHOR'S ORGANIZ ATION 01/26/2020 [facility] DATE CREATED AUTHOR AUTHOR'S ORGANIZ ATION 03/17/2020 [facility] DATE CREATED AUTHOR AUTHOR'S ORGANIZ ATION 09/24/2021 [facility] DATE CREATED AUTHOR AUTHOR'S ORGANIZ ATION 11/29/2021 [facility] DATE CREATED AUTHOR AUTHOR'S ORGANIZ ATION 03/02/2022 [facility] DATE CREATED AUTHOR AUTHOR'S ORGANIZ ATION 03/10/[address] [facility] Reason for Visit (unrecogniz ed section and content) Status Reason Specialty Diagnoses / Procedures Referred By Contact Referred To Contact Closed Specialty Services Required/[facility] Diagnoses Primary osteoarthritis of first carpometacarpal joint of right hand Mannie Chowdhury MD [address] [place] [address] Marcelo Mena MD [address] [place] [address] [address] [place] [address] Reason Comments Hand Pain right hand cmc [...] or prosecute any alcohol or drug abuse patient.[facility] Care Teams (unrecognized sec tion and [...] BE BASED ON THE PRIMARY CLINICAL RECORDS. [facility] [employer] [facility]. provides no warranty or guarantee of the accuracy or completeness of information in this document.
[2023-11-08 08:20] LABS: Platelet Count 244 K/mm3 (150-450)
[2023-11-08 09:14] LABS: Partial Thromboplast Time 24.3 Seconds (24.1-36.2); Prothrombin Time (Protime)PT. 12.8 SECONDS (11.7-14.9)
[2023-11-08] MEDS: 0.9% Normal Saline (250mL Bag) 250 ML 15 ML IV (09:20)
[2023-11-08] MEDS: Ondansetron 4 MG/2 ML Vial IV (09:20)
[2023-11-08] MEDS: Midazolam 2 MG/2 ML Syringe IV (09:23)
[2023-11-08] MEDS: fentaNYL 100 MCG/2 ML Ampul IV (09:27)
[2023-11-08] MEDS: Lidocaine 2% (20 ml mdv) 20 ML Vial INFILT (09:36)
--- NOTE | 2023-11-08 09:40 | LIVB_PTH ---
PATHOLOGY RESULTS PATIENT: REMI PRIETO LOC: CT U#:[id number] AGE/SX: 63/F ROOM: RE11/08/[address]: Dr. Keo Sarmiento DO : 1960 BED: DIS: 11/08/2023 SPEC #: [id number] RECD: 11/08/23 11:03 STATUS: TYREE REQ #: [id number] EMMY: 11/08/23 09:[address]: Keo Sarmiento DEPT: SURGICAL PATHOLOGY RECD BY: Teresa Mcgill ENTERED: 11/08/23 11:04 SP TYPE: LIVER BX OTHR DR: Dr. Kale Justice DO Tissues: Liver, NOS Procedures: PAS with Diastase (control) Trichrome (control) Special Stain Group II PAS Stain (control) Surgery Specimen Level V Retic (control) Iron Stain (control) HEADER OPERATION: CT guided liver biopsy PRE-OP DIAGNOSIS: Fatty liver TISSUE SUBMITTED: Liver 18 gaugex3 MICROSCOPIC DIAGNOSIS Liver, CT guided core biopsy; Liver parenchymal tissue with focal mild macro-and micro vesicular steatosis and portal chronic inflammation. See microscopic description and comment. [place] 11/09/23 COMMENT Correlation with clinical, radiologic and laboratory findings and appropriate follow up are necessary. MICROSCOPIC DESCRIPTION Slides are reviewed. Specimen shows liver parenchymal tissue with preserved lobular architecture. Focal minimal lobular chronic inflammation is noted. Hepatocytes mild macro- and mild vesicular steatosis. Portal area shows mild portal chronic inflammation predominantly consists of lymphocytes. Interface inflammation is not seen. Iron stain shows absent iron. Reticulin stains highlight the preserved lobular architecture. Trichrome stain shows mild increased portal and periportal fibrosis. Bridging fibrosis or cirrhosis are not seen. PAS stain with and without diastase do not show any abnormal accumulation of protein. All stains are performed with appropriate match controls. GROSS DESCRIPTION Received is one container labeled with the patient's name and not further designated. The specimen consists of multiple irregular fragments of medrano soft tissue that in aggregate measure 2.0 x 0.3 x 0.1 cm. The specimen is totally submitted in one cassette. / ABE:claudine 11/08/2023 TC:5 CPT: 44799 ,[id number]
--- NOTE | 2023-11-08 11:06 | PCM.OP.PRO ---
Procedure Report Date of Procedure: 11/08/23 Assessment & Plan Assessment/Plan (1) NAFLD (nonalcoholic fatty liver disease): PLAN: PROCEDURE: CT DIRECTED CORE LIVER BIOPSY ORDERING PROVIDER: Dr. Sarmiento INDICATION: Female, 63 years old. Nonalcoholic fatty liver disease. PROVIDER: DEEDEE Palm CONSENT: Written informed consent was obtained having explained the risks, benefits and alternatives in detail with the patient who accepted the risks and agreed to proceed. Laboratory review and clinical assessment was performed. PRE-PROCEDURE SEDATION ASSESSMENT: Current history and physical dictated by referring provider and reviewed. No clinical changes since date of exam. Patient has an ASA Class of 2. PROCEDURAL SEDATION PROTOCOL: The Drugs used were: 1 mg Versed, IV, and 25 mcg Fentanyl, IV. The sedation time was: 19 minutes, starting at 9:23 AM and terminated at 9:42 AM. The procedural sedation protocol was independently monitored by the department nurse. RADIATION DOSAGE (If Supplied By Facility): CTDIvol = 16.31 mGy, DLP = 377.75 mGycm Individualized dose optimization techniques were used for this CT. TECHNIQUE: The patient was placed in a supine position. Using CT image guidance with image documentation, a suitable location in the left lobe of the liver was identified. The skin surface was prepped with betadine and draped in a sterile fashion. 2% lidocaine was used for local anesthesia. Using an anterior approach, puncture of the liver was uneventful with an 18-gauge core needle system. 3, 18-gauge core samples were obtained, and submitted in formalin to the pathologist for further assessment. The needle was removed. An occlusive sterile dressing was applied. Patient tolerated the procedure well, and returned to the holding bay for nursing monitoring. IMPRESSION: 1. CT directed core needle biopsy of the liver, using CT image guidance with image documentation as described. 2. Procedural Sedation protocol utilized with independent monitoring. Procedures Radiology Radiology CT Procedures: 38737 Biopsy Liver
[2023-11-09 15:08] LABS: Albumin 3.7 g/dL (2.9-4.4); Alpha-1-Globulins 0.3 g/dL (0.0-0.4); Alpha-2-Globulins 0.7 g/dL (0.4-1.0); Gamma Globulin 0.7 g/dL (0.4-1.8); Immunoglobulin A 96 mg/dL (87-352); Immunoglobulin G 694 mg/dL (586-1602); Immunoglobulin M 65 mg/dL (26-217); PROEL- TOTAL PROTEIN 6.3 g/dL (6.0-8.5)
== END | disposition home or self-care (01) ==
PROVIDERS: Nurse Practitioner Acute Care; PCP Family Medicine; Referring Provider Internal Medicine Gastroenterology; Visit Provider Internal Medicine Gastroenterology
DX: K76.0 Fatty (change of) liver, not elsewhere classified (principal)
CPT/HCPCS: 47000; 36415; 77012; 82784; 84165; 85049; 85610; 85730; 86334; 88307; 88313; 99156; J7050; A4216; J2405

== ENCOUNTER → 2024-02-02 | Outpatient (CLI) | payer OTHER, SELFPAY ==
--- NOTE | 2024-02-02 07:19 | BI_ITS ---
MAMMOGRAPHY - BILATERAL SCREENING REASON FOR EXAM: Female, 64 years old. Routine annual screening examination. PERTINENT HISTORY: Non-contributory. Remote right excisional breast biopsy. TECHNIQUE: Digital bilateral breast kelly (3D mammographic acquisition) in the CC and MLO projections. 2-D mediolateral oblique (MLO) and craniocaudad (CC) views of both breasts were obtained. CAD: Full Field Digital Mammography with Computer Added Detection was performed. COMPARISON: Comparison is made with prior study dated September 26, 2019 and November 29, 2017. FINDINGS: Breast Composition: There are scattered areas of fibroglandular density. There are no dominant masses or suspicious calcifications. No other significant abnormalities are identified. There has been no significant change since the prior study. BI/SCRN MAMM (CAD)W/KELLY BILAT IMPRESSION: Stable bilateral screening mammogram. Yearly follow-up mammogram recommended. (A) ASSESSMENT CATEGORY: BIRADS Category 1: Negative. A letter regarding these results will be sent to the patient by the facility within 30 days. Approximately 10% of breast cancers are not detected by mammography. A normal mammogram should not delay biopsy of a clinically suspicious abnormality. [id number] Electronically Signed: Ad Castano MD at 9:11 EDT ,
== END | disposition home or self-care (01) ==
PROVIDERS: PCP Family Medicine; Referring Provider Family Medicine; Visit Provider Family Medicine
DX: Z12.31 Encounter for screening mammogram for malignant neoplasm of breast (principal)
CPT/HCPCS: 77063; 77067

== ENCOUNTER → 2024-05-17 | Outpatient (CLI) | payer BC, SELFPAY ==
[2024-05-17 12:38] LABS: Hematocrit 40.9 % (37-47); Hemoglobin 13.3 g/dL (12.0-15.0); Mean Corp Hgb Conc 32.5 g/dL (32-36); Mean Corpuscular Hgb 29.4 pg (27.0-32.0); Mean Corpuscular Volume 90.3 fL (81-99); Mean Platelet Vol. 10.5 fl (6.2-12.0); Platelet Count 233 K/mm3 (150-450); RBC Distribution Width CV 12.5 % (11.6-14.6); RBC Distribution Width SD 41.2 fl (35.1-43.9); Red Blood Count 4.53 M/mm3 (4.2-5.4); White Blood Count 5.3 K/mm3 (4.4-11.0)
[2024-05-17 12:50] LABS: Vitamin B12 833 pg/mL (211-911)
[2024-05-17 13:24] LABS: ALB/GLOB Ratio 1.2 RATIO (0.9-2.4); AST(SGOT) 13 U/L (15-37); Alanine Aminotransfer ALT/SGPT 18 U/L (13-56); Albumin, Serum 3.9 g/dL (3.2-5.0); Alkaline Phosphatase 77 U/L (45-117); Anion Gap 7 (5-15); BUN 18 mg/dL (7-18); BUN/Creat Ratio 28.4 RATIO (10-20); Calcium,Total 9.1 mg/dL (8.5-10.1); Chloride 107 mmol/L (98-107); Creatinine, Serum 0.63 mg/dL (0.55-1.02); EST Glomerular Filtration Rate 100 mL/min (>60); Est Glom Filt Rate - Afr Amer 121 mL/min (>60); Globulin 3.2 g/dL (2.2-4.2); Glucose 93 mg/dL (74-106); Potassium 3.9 mmol/L (3.5-5.1); Protein, Total 7.1 g/dL (6.4-8.2); Sodium Level 140 mmol/L (136-145)
[2024-05-21 17:07] LABS: Vitamin B1, Thiamine 127.1 nmol/L (66.5-200.0)
== END | disposition home or self-care (01) ==
PROVIDERS: PCP Family Medicine; Referring Provider Psychiatry & Neurology Neurology; Visit Provider Psychiatry & Neurology Neurology
DX: G31.84 Mild cognitive impairment of uncertain or unknown etiology (principal)
CPT/HCPCS: 36415; 80053; 82140; 82607; 82746; 84425; 84443; 85027

== ENCOUNTER → 2024-06-12 | Outpatient (CLI) | payer BC, SELFPAY ==
--- NOTE | 2024-06-12 10:10 | MRI_ITS ---
EXAM: MR HEAD WITHOUT AND WITH INTRAVENOUS CONTRAST CLINICAL INDICATION: mild cognitive impairment, smelling smoke since covid TECHNIQUE: Multiplanar and multisequence MR images of the brain were obtained without and with intravenous contrast. CONTRAST: IV 14ML CLARISCAN COMPARISON: MRI brain with and without contrast 04/28/2021. FINDINGS: BRAIN AND EXTRA-AXIAL SPACES: No diffusion restriction to suspect acute or subacute ischemic infarct. Small T2 FLAIR hyperintensity foci in the white matter of both cerebral hemispheres are most likely chronic white matter ischemic changes. No midline shift and no mass effects. No abnormal magnetic susceptibility foci throughout the brain parenchyma. Normal ventricles and cisterns. Following IV contrast administration, there are no abnormally enhancing lesions intra-axially and extra-axially. No intra- or extra-axial hemorrhage. Posterior fossa structures are unremarkable. No hydrocephalus. SELLA: Unremarkable. Normal sella turcica, pituitary gland, infundibular stalk, optic chiasm and hypothalamus. AUDITORY SYSTEM: Unremarkable. The internal auditory canals are patent. BONES/JOINTS: Unremarkable. No discrete lytic or blastic abnormalities. SINUSES: Unremarkable as visualized. Clear. MASTOID AIR CELLS: Unremarkable as visualized. Clear. ORBITS: Unremarkable as visualized. Both globes, extraocular muscles, optic nerves and retrobulbar fat appear unremarkable. VASCULATURE: Unremarkable as visualized. Normal flow voids in the major intracranial circulation. MRI/Brain W/WO Contrast IMPRESSION: 1. No MRI evidence of acute or subacute ischemic infarct or remote cortical-based ischemic infarct. 2. Chronic white matter ischemic changes in both cerebral hemispheres. 3. No abnormally enhancing lesions intra-axially and extra-axially. 4. No significant interval change when compared to 04/28/2021. Electronically Signed: Phong Marquez MD at 16:05 EDT ,
== END | disposition home or self-care (01) ==
PROVIDERS: PCP Family Medicine; Referring Provider Psychiatry & Neurology Neurology; Visit Provider Psychiatry & Neurology Neurology
DX: G31.84 Mild cognitive impairment of uncertain or unknown etiology (principal); D32.9 Benign neoplasm of meninges, unspecified
CPT/HCPCS: 70553; A9575

== ENCOUNTER → 2025-06-19 | Outpatient (CLI) | payer MEDICARE, SELFPAY ==
[2025-06-19 12:30] LABS: Hematocrit 41.3 % (37-47); Hemoglobin 13.7 g/dL (12.0-15.0); Immature Granulocytes Count 0.020 X10^3/uL (0.0-0.0); Mean Corp Hgb Conc 33.2 g/dL (32-36); Mean Corpuscular Volume 85.7 fL (81-99); Mean Platelet Vol. 10.3 fl (6.2-12.0); NRBC Flagged by Analyzer 0 % (0-5); Platelet Count 252 K/mm3 (150-450); RBC Distribution Width CV 13.3 % (11.6-14.6); RBC Distribution Width SD 41.5 fl (35.1-43.9); Red Blood Count 4.82 M/mm3 (4.2-5.4); White Blood Count 6.0 K/mm3 (4.4-11.0)
[2025-06-19 13:06] LABS: AST(SGOT) 20 U/L (<=31); Alanine Aminotransfer ALT/SGPT 16 U/L (<=34); Albumin, Serum 4.4 g/dL (3.4-4.8); Alkaline Phosphatase 66 U/L (35-104); Anion Gap 10 (5-15); BUN 17 mg/dL (4-19); BUN/Creat Ratio 26.9 RATIO (10-20); Calcium,Total 9.2 mg/dL (7.6-11.0); Carbon Dioxide 26.7 mmol/L (21.0-32.0); Chloride 103 mmol/L (98-108); Cholesterol 273 mg/dL (<=200); Globulin 2.8 g/dL (2.2-4.2); Glucose 91 mg/dL (70-99); Low Density Lipoprotein Calc. 157 mg/dL; Potassium 4.6 mmol/L (3.3-5.1); Triglycerides 316 mg/dL; Very Low Density Lipoprotein 63 mg/dL (5-40); cholesterol:hdl ratio screen 4.76
== END | disposition home or self-care (01) ==
LOC: MTLAB 09:31
PROVIDERS: PCP Family Medicine; Referring Provider Family Medicine; Visit Provider Family Medicine
DX: I10 Essential (primary) hypertension (principal); E78.5 Hyperlipidemia, unspecified; E03.8 Other specified hypothyroidism; K76.0 Fatty (change of) liver, not elsewhere classified
CPT/HCPCS: 36415; 80053; 80061; 83036; 84443; 85025